=== PATIENT | male | born 1940 | race Caucasian/White ===

== ENCOUNTER 2019-08-09 13:52 | Outpatient (CLI) | payer MEDICARE, OTHER, SELFPAY ==
[2019-08-09 14:46] LABS: Basophils % 0.3 %; Eosinophils # 0.3 10^3/uL (0.0-0.8); Eosinophils % 5.2 %; Hematocrit 41.6 % (42.0-52.0); Hemoglobin 13.5 g/dL (11.7-16.6); Lymphocytes # 2.1 10^3/uL (0.8-4.8); Lymphocytes % 31.5 %; Mean Corpuscular HGB Conc 32.5 g/dL (30.0-36.0); Mean Corpuscular Hemoglobin 32.6 pg (28.0-34.0); Mean Corpuscular Volume 100.5 fL (80-94); Mean Platelet Volume 12.3 fL (7.4-10.4); Monocytes # 0.8 10^3/uL (0.2-0.9); Monocytes % 12.2 %; Neutrophils # 3.3 10^3/uL (1.8-7.7); Neutrophils % 50.6 %; Nucleated Red Blood Cells % 0 %; Platelet Count 186 10^3/cmm (130-400); Red Blood Count 4.14 10^6/uL (4.1-5.3); Red Cell Distribution Width 13.2 % (12.1-15.1); White Blood Count 6.6 10^3/uL (4.0-10.0)
[2019-08-09 15:06] LABS: Alanine Aminotransferase 13 U/L (0-41); Albumin Level 3.7 g/dL (3.5-5.2); Alkaline Phosphatase 59 IU/L (40-130); Anion Gap 16.6 (5-19); Aspartate Amino Transferase 18 U/L (0-40); Blood Urea Nitrogen 22 mg/dL (8-23); Calcium 9.6 mg/dL (8.5-10.5); Carbon Dioxide 26 mmol/L (22-29); Chloride 99 mmol/L (98-107); Globulin 3.5 g/dL (1.3-4.6); Potassium 4.6 mmol/L (3.5-5.1); Sodium 137 mmol/L (136-145); Total Bilirubin 0.4 mg/dL (0.15-1.2); Total Protein 7.2 g/dL (6.6-8.7)
[2019-08-10 08:55] LABS: Glucose 86 mg/dL (65-115)
[2019-08-10 10:57] LABS: Amylase 56 U/L (28-100); Lipase 21 U/L (13-60)
== END 2019-08-09 13:53 | disposition home or self-care (01) ==
LOC: ONCMED 13:58
PROVIDERS: Family Provider Family Medicine; Visit Provider Nurse Practitioner
DX: R53.83 Other fatigue (principal); C61 Malignant neoplasm of prostate; C79.51 Secondary malignant neoplasm of bone
CPT/HCPCS: 80053; 82150; 83690; 85025

== ENCOUNTER 2019-08-24 13:19 | Outpatient (CLI) | payer MEDICARE, OTHER, SELFPAY | END 2019-08-24 13:20 | disposition home or self-care (01) | PROVIDERS: Family Provider Family Medicine; PCP Family Medicine; Visit Provider Family Medicine | DX: R19.7 Diarrhea, unspecified (principal) | CPT/HCPCS: 87493; 87505 ==

== ENCOUNTER 2019-08-25 10:25 | Outpatient (CLI) | payer MEDICARE, OTHER, SELFPAY ==
--- NOTE | 2019-08-25 | US_ITS ---
WS: [id number] RENAL ULTRASOUND HISTORY: LEFT FLANK PAIN COMPARISON: 01/03/2019 CT. TECHNIQUE: 2-D and color Doppler imaging of the kidney submitted. Right kidney: 11.9 cm x 5.2 cm x 5.1 cm. Normal echogenicity with no hydronephrosis or mass. Normal size kidney. Shadowing from the mid kidney probably representing a stone measuring 5 mm. No obstruction. Left kidney: 10.4 cm x 5.1 cm x 5.5 cm. Normal echogenicity with no hydronephrosis or mass. Simple cyst associated with the LEFT kidney measu res 3.9 x 3.4 cm. The exact location cannot be determined on the images as labeled. As per history robyn sanchez has a LEFT ureteral stent. Previously described hydronephrosis on 01/03/2019 is no longer present . Aorta: Normal. Urinary Bladder: Minimally distended. US/US renal BI* [id number] IMPRESSION: 1. Resolved LEFT hydronephrosis. 2. No RIGHT renal mass or obstruction.
== END 2019-08-25 10:26 | disposition home or self-care (01) ==
LOC: RADOUTREAD 14:38
PROVIDERS: Family Provider Family Medicine; PCP Family Medicine; Visit Provider Family Medicine
DX: Z01.89 Encounter for other specified special examinations (principal)

== ENCOUNTER 2019-09-05 14:15 | Outpatient (CLI) | payer MEDICARE, OTHER, SELFPAY ==
--- NOTE | 2019-09-05 14:30 | CT_ITS ---
WS: [id number] CT LUMBAR SPINE, noncontrast. HISTORY: Low back pain, history of prostate cancer. TECHNIQUE: Contiguous 2.5 mm axial imaging are performed. Sagittal and coronal reformats are submitte d and reviewed. All CT scans at [facility] use at least one of these dose optimization te chniques: automated exposure control; mA and/or kV adjustment per patient size (includes targeted exa ms where dose is matched to clinical indication); or iterative reconstruction. IV contrast: None DLP: 1954.01 mGycm COMPARISON: 02/04/2019 Severe multilevel degenerative disc disease with vacuum disc phenomenon in the lumbar spine. Most sig nificant from L2-3 through L5-S1. Severe disc space narrowing L2-3. L4 compression fracture by 30%. N o acute fracture or bone destruction. Bilateral pars defects at L5. L1-2: Asymmetric disc bulging without stenosis. L2-3: Diffuse disc bulging with mild LEFT foraminal narrowing. L3-4: Diffuse annular disc bulging with ligamentum flavum hypertrophy and facet arthropathy. Facet os teophytes encroach upon the posterior lateral thecal sac. Mild central and subarticular recess stenos is. Severe LEFT and moderate RIGHT foraminal stenosis. L4-5: Diffuse annular disc bulging with facet and ligamentum flavum arthropathy. Moderate to severe b ilateral foraminal stenosis. L5-S1: Diffuse annular disc bulging with a focal RIGHT foraminal disc protrusion. Complete effacement of fat in the RIGHT foramen and mild effacement of fat on the LEFT. Heavy calcification within the abdominal aorta. No osteoblastic or osteolytic bone changes. CT/CT lumbar spine wo con* [id number] IMPRESSION: 1. Remote L4 compression fracture by 30% with no change. 2. Multilevel advanced degenerative disc disease and vacuum disc phenomenon th roughout the lumbar spine. 3. Severe RIGHT foraminal stenosis due to combination of factors including a d isc protrusion at L5-S1. 4. Moderate to severe bilateral foraminal stenosis at L3-4 and L4-5. 5. L5 pars defects without anterolisthesis. 6. No significant progression of disease since 02/04/2019.
== END 2019-09-05 14:16 | disposition home or self-care (01) ==
LOC: RADWPI 14:21
PROVIDERS: Family Provider Family Medicine; PCP Family Medicine; Visit Provider Licensed Practical Nurse
DX: M48.56XA Collapsed vertebra, not elsewhere classified, lumbar region, initial encounter for fracture (principal); M47.896 Other spondylosis, lumbar region; M48.07 Spinal stenosis, lumbosacral region; M51.26 Other intervertebral disc displacement, lumbar region; M48.061 Spinal stenosis, lumbar region without neurogenic claudication; R22.2 Localized swelling, mass and lump, trunk; M54.5 Low back pain
CPT/HCPCS: 72131

== ENCOUNTER 2019-09-13 08:29 | Outpatient (CLI) | payer MEDICARE, OTHER, SELFPAY ==
--- NOTE | 2019-09-13 08:30 | XR_ITS ---
WS: [id number] KUB, 09/13/2019 Clinical Data: Prostate cancer Comparison: C-arm fluoroscopy of the abdomen, 01/20/2019. Findings: No abnormal intraabdominal masses or calcifications are seen. There is no dilatated small bowel or ev idence of obstruction. A left ureteral stent is in position. There are bilateral surgical clips and central surgical clips i n the true pelvis from prostate surgery. Degenerative arthritic change of the lower lumbar vertebral bodies is severe. There is a large amount of fecal material throughout the colon. XR/XR KUB [id number] Impression: 1. Left ureteral stent in good position. 2. Surgical clips in the true pelvis.
== END 2019-09-13 08:30 | disposition home or self-care (01) ==
LOC: RAD 08:31
PROVIDERS: Family Provider Family Medicine; PCP Family Medicine; Visit Provider Urology
DX: N13.30 Unspecified hydronephrosis (principal); C61 Malignant neoplasm of prostate
CPT/HCPCS: 74018

== ENCOUNTER 2019-09-30 07:35 | Outpatient (CLI) | payer MEDICARE, OTHER, SELFPAY ==
[2019-09-30 13:01] LABS: Basophils % 0.1 %; Eosinophils # 0.2 10^3/uL (0.0-0.8); Eosinophils % 2.4 %; Hematocrit 41.7 % (42.0-52.0); Hemoglobin 13.3 g/dL (11.7-16.6); Lymphocytes # 1.8 10^3/uL (0.8-4.8); Lymphocytes % 25.8 %; Mean Corpuscular HGB Conc 31.9 g/dL (30.0-36.0); Mean Corpuscular Hemoglobin 33.7 pg (28.0-34.0); Mean Corpuscular Volume 105.6 fL (80-94); Mean Platelet Volume 12.3 fL (7.4-10.4); Monocytes # 0.4 10^3/uL (0.2-0.9); Neutrophils # 4.4 10^3/uL (1.8-7.7); Neutrophils % 65.3 %; Nucleated Red Blood Cells % 0 %; Platelet Count 239 10^3/cmm (130-400); Red Blood Count 3.95 10^6/uL (4.1-5.3); Red Cell Distribution Width 13.5 % (12.1-15.1); White Blood Count 6.8 10^3/uL (4.0-10.0)
[2019-09-30 13:18] LABS: Testosterone Total 4.8 ng/dL (193-740)
[2019-09-30 13:24] LABS: Prostate Specific Antigen 0.17 ng/mL (0-4)
[2019-09-30 13:36] LABS: Alanine Aminotransferase 12 U/L (0-41); Albumin Level 4.3 g/dL (3.5-5.2); Alkaline Phosphatase 55 IU/L (40-130); Anion Gap 20.6 (5-19); Aspartate Amino Transferase 19 U/L (0-40); Blood Urea Nitrogen 22 mg/dL (8-23); Calcium 9.7 mg/dL (8.5-10.5); Carbon Dioxide 23 mmol/L (22-29); Chloride 97 mmol/L (98-107); Globulin 2.9 g/dL (1.3-4.6); Glucose 129 mg/dL (65-115); Osmolality Calculated 280 mOsm/kg (285-295); Potassium 4.6 mmol/L (3.5-5.1); Sodium 136 mmol/L (136-145); Total Bilirubin 0.5 mg/dL (0.15-1.2); Total Protein 7.2 g/dL (6.6-8.7)
== END 2019-09-30 07:36 | disposition home or self-care (01) ==
LOC: ONCMED 10-03 06:56
PROVIDERS: Family Provider Family Medicine; PCP Family Medicine; Visit Provider Internal Medicine Medical Oncology
DX: C61 Malignant neoplasm of prostate (principal)
CPT/HCPCS: 80053; 84153; 84403; 85025

== ENCOUNTER 2019-10-03 08:25 | Outpatient (CLI) | payer MEDICARE, OTHER, SELFPAY ==
[2019-10-03] MEDS: lidocaine 1% INJ 20 mL INJECTION (08:58)
[2019-10-03] MEDS: goserelin acetate 10.8 mg Implant IM (09:12)
--- NOTE | 2019-10-06 19:00 | ONC FU_ITS ---
Dr. Francisco Patient Follow-Up Note Patient: Mack Nash Unit #: [id number]: [id number] Dicatated By: Paul Francisco M.D.Date of Visit:Oct 03, 2019 Onc Med Follow-up/Prog Note Chief Complaint: Prostate cancer. History of Present Illness: This is 78 year-old man with the stage IV prostatic adenocarcinoma, metastatic to bone. He has a history of coronary artery disease, smoking and alcohol consumption. He was diagnosed with an early stage intermediate risk prostatic adenocarcinoma in 1999, Constantino score 5, PSA 20.6. He underwent a primary treatment with radical retropubic prostatectomy. Reportedly, the patient had recurrent detectable PSA within one year. In October of 2012 PSA measured 10.7, with further increase to 37.7 in October 2013 and further increase to 81.2 in May 2014. The bone scan on 05/08/2014 showed increased activity in the right superior ramus, right acetabulum as well as right femoral neck. The patient began treatment with Zoladex and 2 weeks therapy with Casodex on 05/08/2014. The patient was first seen by Dr. Shah on 07/03/2014. He had no pain associated with the right leg, hip, or pelvis. CT of the chest/ abdomen/pelvis on 07/04/2014 showed no evidence of distal metastatic disease. His DEXA scan on 07/10/2014 was normal. An MRI on 08/29/2014 showed a right hip lesion extending to the cortex. He completed right hip radiation treatment on 10/13/2014. He established care with orthopedic surgeon at [facility]. His PSA reached a walter of 0.25 ng/mL on 08/27/2015. A repeat PSA in November was up just slightly, to 0.32 ng/mL. By 05/28/2016 his PSA had increased to 0.81 ng/mL. Restaging CT scans of the chest, abdomen, and pelvis on 06/17/2016 showed stable right lower lobe subpleural nodules since 07/04/2014 and unlikely to represent metastatic lesions. There were no acute findings of the chest and no significant change from 07/04/2014. There were stable nonenlarged retroperitoneal para-adrenal lymph nodes noted. There was essentially near complete resolution of prior blastic metastatic disease involving right proximal femur, acetabulum, and superior pubic ramus. Bone scan performed 06/17/2016 showed stable findings. There were no new areas of increased uptake to suggest progression of metastatic disease. He continued androgen deprivation. During subsequent follow-up his PSA level continued to increase gradually. As of 03/27/2017 it was up to 4.62 ng/mL. Restaging CT scans of the chest, abdomen, and pelvis on 06/23/2017 showed no evidence of neoplastic process within the chest and no evidence of metastatic disease in the abdomen/pelvis or bony structures. There were extensive degenerative changes in the spine, and there was evidence of L4 anterior superior compression fracture compared to the study from 06/24/2016. Bone scan showed eccentric increased activity in lumbar spine felt to be most likely degenerative. The L4 vertebral body compression fracture was again noted. There was no evidence of osseous metastatic disease. A subsequent DEXA scan on 07/10/2017 showed a decrease in the bone mineral density in both hips compared to the prior study from July 2014. On his follow-up visit in July 2017 there was just a slight further increase in the PSA level, to 5.93 ng/mL, and as of 09/23/2017 it was up to 8.62 ng/mL. He had no evidence of symptomatic metastatic disease, and he just continued androgen deprivation with Zoladex. As of his follow-up visit on 12/16/2017 there was further increase in the PSA level to 12.90 ng/mL. He was reporting increased back pain with radiation to the left leg. He continued androgen deprivation therapy with Zoladex, but he also had further evaluation with bone scan and subsequently with CT of the lumbar spine. There was no evidence of metastatic disease on the bone scan. He lumbar spine CT did show an L4 compression fracture estimated at 30% without retropulsion. There were significant degenerative changes with moderate central canal stenosis at L2-3 and at L3-4 and there was moderate to severe foraminal stenosis at multiple sites. As of 03/18/2018 the PSA had further increased to 13.90 ng/mL. In the absence of symptomatic disease progression, he continued androgen deprivation with Zoladex. His other medical illnesses include hypertension, dyslipidemia, and coronary artery disease. He does have history of smoking, but has cut down to less than 1 pack of cigarettes daily. INTERIM HISTORY: By December 2018 the PSA had further increased to 20.93 ng/mL, and at that point he was having increasing pain in the left lower back and left leg. MRI of the lumbar spine on 12/23/2018 showed significant degenerative changes which included moderate central canal stenosis and foraminal narrowing at multiple levels. Also noted was moderate left hydronephrosis with ureterectasis extending into the pelvis.further evaluation with CT abdomen/pelvis on 01/03/2019 showed evidence of left ureteropelvic junction mass causing left ureterectasis and hydronephrosis. A left side presacral elongated soft tissue mass was noted, possibly of sacral nerve root origin, with the reported differential including schwannoma, neurofibroma, or perineural spread of neoplasm. He was referred to Dr. Puckett, and on 01/20/2019 he underwent cystoscopy and left ureteroscopy with biopsy of ureteral mass and with placement of left ureteral stent. Pathology showed fibrous tissue with chronic inflammation. There was no malignancy identified. As he appeared to be showing significant disease progression, he then began treatment with enzalutamide 160 mg daily in February 2019. He did show significant biochemical response with repeat PSA on 03/21/2019 decreasing to 3.95 ng/mL. He continued androgen deprivation with Zoladex together with enzalutamide 160 mg daily, which he appeared to be tolerating well. On 06/13/2019 he underwent cystoscopy with replacement of his left ureteral stent. The distal ureter was noted to have significant inflammatory changes, but no distinct papillary tumors were noted. As of his follow-up visit on 06/20/2019 there was further decrease in the PSA level to 0.36 ng/mL. He is seen for a scheduled visit. He has been feeling pretty good generally, though he says he does not have a lot of energy. Still has limited mobility due to the pain in his back and legs. He is doing some exercising. His ECOG score is 2. His appetite has been okay. He has not had fever. He does have hot flashes, but they have been tolerable with gabapentin. He has some sinus drainage, which occasionally has been bloody. He has a smoker's cough. He does not complain of shortness of breath or chest pain. He has no GI/ complaints other than he occasionally has bladder leakage. He does not complain of headache. He has no focal neurologic symptoms. Medications: AmLODIPine Besylate 1 (5 mg) Tablet Oral daily, Aspirin 1 (81 mg) Tablet Oral daily, Atorvastatin Calcium (10 mg) Tablet Oral daily, Carvedilol 1 Tablet (of 6.25 mg) Oral b.i.d., Enzalutamide 4 Capsule (of 40 mg) Oral daily, gabapentin 1 Capsule (of 300 mg) Tablet t.i.d., Garlic 2 Capsule Oral daily, Hydrocodone-Acetaminophen 1 Tablet (of 5-325 mg) Oral q 8 hours PRN, Lisinopril 1 (10 mg) Tablet Oral daily, Plavix 1 (75 mg) Tablet Oral daily, Stool Softener 1 Tablet (of 100 mg) Oral daily, Triamterene-HCTZ 0.5 (37.5-25 mg) Tablet Oral daily, Venlafaxine HCl ER 1 Capsule (of 75 mg) Capsule SR 24 HR Oral daily Allergies: No Known Allergies. Review of Systems: Constitutional - His energy level is low. He has been doing some light exercising, but he has limited activity due to mobility. His appetite is good and weight is up about 5 pounds. No fever or chills. He continues to have hot flashes mostly at night. ECOG score is 2, ENMT - No sinus congestion/drainage. No mouth sores. No sore throat or difficulty swallowing, Hematologic/Lymphatic - He bruises easily, Respiratory - No shortness of breath. He has a chronic smokers cough. No pleuritic pain or hemoptysis, Cardiovascular - No angina pain. No palpitations, Gastrointestinal - No nausea or vomiting. No heartburn or acid reflux. No diarrhea or constipation. No blood in the stool or black stools, Genitourinary (M) - No dysuria or hematuria. No urinary frequency. No urgency. He has occasional incontinence, Musculoskeletal - He has pain in his back and legs that is adequately managed with hydrocodone/APAP, Integumentary - No skin complications, Neurologic - No headache. He has some occasional dizziness with positional changes. No numbness/paresthesias or other focal neurologic symptoms, Psychiatric - No anxiety or depression. He is having difficulty sleeping. Vital Signs: Performed on Oct 03, 2019 08:38 Height - 72.00 in Weight - 235.0 lbs (HIGH) BSA - 2.28 sq.m BMI - 31.87 (HIGH) Temperature - 97.5 F (LOW) Pulse - 61 /min Respiration - 24 /min BP - 131/73 mm(hg) O2 Sat - 100 % Pain - 0 Physical Examination: Constitutional - He looks pretty good generally, Eyes - Sclerae nonicteric. Conjunctivae clear, ENMT - No lesions noted in the oral cavity, Hematologic/Lymphatic - No cervical, clavicular, or axillary adenopathy, Respiratory - Lungs are clear with diminished air movement bilaterally, Cardiovascular - Heart rhythm is regular. There is no murmur, gallop, or rub noted, Abdomen - Mildly distended. Liver and spleen are not enlarged. There is no abdominal mass or ascites noted and there is no inguinal adenopathy, Extremities - There is mild swelling of the left leg. He has localized swelling at the left elbow consistent with bursitis, Neurologic - No focal neurologic deficits noted. Lab/Imaging: CBC shows hemoglobin 13.3 g, white blood cell count 6800, and platelet count 239,000. Comprehensive metabolic profile is unremarkable. The PSA is down to 0.17 ng/mL. Testosterone level is in castrate range at 4.8 ng/dL. Impression: 1. Patient with stage [place] 5 prostate cancer, early stage at initial diagnosis in 1999 and treated with radical prostatectomy. 2. He presented with castration sensitive stage IV, metastatic disease in the bone in May of 2014 with PSA 81.2. Androgen deprivation therapy was initiated on 05/08/14 with Zoladex and 2 weeks of bicalutamide. He has had a good clinical response with PSA walter of 0.25 ng/mL on 08/27/2015. His other medical illnesses include: 3. Hypertension. 4. Dyslipidemia. 5. Coronary artery disease. During the past year there has been a gradual rise in his PSA level. There were no obvious sites of metastatic involvement noted on his restaging CT scans or bone scan in June 2017. There was evidence of a new vertebral compression fracture at L4, but that did not appear to be overtly symptomatic. A subsequent DEXA scan on 07/10/2017 showed a decrease in the bone mineral density in both hips compared to the prior study from July 2014. As of his follow-up visit in July 2017, his PSA level had increased just slightly, to 5.93 ng/mL. It then continued to increase gradually, to 8.62 ng/mL in September and to 12.90 ng/mL in December. At that point he had developed significant back pain. He continued androgen deprivation therapy with Zoladex, but he did have further evaluation with bone scan and subsequently with CT of the lumbar spine. Based on those results, it appeared that his pain was due to underlying degenerative disease, as there was no obvious metastatic involvement noted. He initially did show some improvement in his lower back/hip pain with physical therapy. However, it had subsequently worsened, and as of his follow-up visit in December 2018 was further increase in the PSA level to 20.93 ng/mL. MRI of the lumbar spine did show significant degenerative changes, but that study also showed evidence of left hydronephrosis. Further evaluation with CT abdomen/pelvison 01/03/2019 showed evidence of left ureteropelvic junction mass with associated left ureterectasis and hydronephrosis. Also noted was a left side presacral elongated soft tissue mass felt to be possibly of sacral nerve root origin. On 01/20/2019 he underwent cystoscopy and left ureteroscopy with biopsy of left ureteral mass and with placement of left ureteral stent. The biopsy showed no evidence of malignancy. As of February 2019 there was further increase in the PSA level to 24.56 ng/mL. As he did appeared to be showing symptomatic disease progression, he then started treatment with enzalutamide 160 mg daily. He reported significant improvement in his left lower back pain following placement of the ureteral stent. He did show a significant biochemical response to the enzalutamide with repeat PSA on 03/21/2019 decreasing to 3.95 ng/mL. At that point he appeared to be tolerating it well, and he continued the enzalutamide together with Zoladex. On 06/13/2019 he underwent repeat cystoscopy and replacement of a left ureteral stent. He again noted improvement in lower back pain following the procedure. During subsequent follow-up his clinical status has been stable, though he continues to have limited activity due to pain in his back and legs. However, that does appear to be associated with underlying degenerative disease and not to his prostate cancer. He has continued to show gradual decline in his PSA level, now to 0.17 ng/mL. Plan: He will be given Zoladex 10.8 mg by subcutaneous injection. He continues enzalutamide 160 mg daily. He will continue gabapentin 300 mg in the morning and 600 mg at bedtime. I will see him again in 3 months. Signed By: Paul Francisco M.D. <<Signature on File>>
== END 2019-10-03 08:26 | disposition home or self-care (01) ==
LOC: ONCMED 08:25
PROVIDERS: Family Provider Family Medicine; PCP Family Medicine; Visit Provider Internal Medicine Medical Oncology
DX: C61 Malignant neoplasm of prostate (principal); C79.51 Secondary malignant neoplasm of bone; M79.605 Pain in left leg; M79.604 Pain in right leg; M54.9 Dorsalgia, unspecified; I10 Essential (primary) hypertension; E78.5 Hyperlipidemia, unspecified; I25.10 Atherosclerotic heart disease of native coronary artery without angina pectoris; F17.210 Nicotine dependence, cigarettes, uncomplicated; Z90.79 Acquired absence of other genital organ(s); Z79.818 Long term (current) use of other agents affecting estrogen receptors and estrogen levels; Z79.899 Other long term (current) drug therapy
CPT/HCPCS: 96372; 96402; 99214; J2001; J9202

== ENCOUNTER 2019-12-06 08:43 | Outpatient (CLI) | payer MEDICARE, OTHER, SELFPAY ==
--- NOTE | 2019-12-06 09:00 | XR_ITS ---
WS: [id number] XR KUB [id number] REASON FOR EXAM: URETERAL STENT FINDINGS: A stent is seen in the left ureter extends to the kidney. The positioning appears to be sat isfactory. Along the bladder aspects of the ureter stent there is disruption of the stent suggesting laceration of the splenic. There is postop multiple sutures seen throughout the pelvis. There is degenerative arthritis of the thoracic spine. XR/XR KUB [id number] IMPRESSION: A stent is seen extends to the left kidney down to the bladder Questionable laceration of these stent at the bladder region. This may be quest ionable defect from the positioning of the catheter.
== END 2019-12-06 08:44 | disposition home or self-care (01) ==
LOC: RAD 08:48
PROVIDERS: Family Provider Family Medicine; PCP Family Medicine; Visit Provider Urology
DX: Z96.0 Presence of urogenital implants (principal)
CPT/HCPCS: 74018; 81001

== ENCOUNTER 2019-12-09 10:27 | Day surgery (SDC) | payer MEDICARE, OTHER, SELFPAY ==
[2019-12-08 11:44] VITALS: BMI 33.7
--- NOTE | 2019-12-08 12:05 | ECG_ITS ---
Measurements Intervals [place] Rate: 56 P: 49 WA: 155 QRS: -6 QRSD: 102 T: 21 QT: 462 QTc: 449 SINUS BRADYCARDIA WITH OCCASIONAL SUPRAVENTRICULAR PREMATURE COMPLEXES NONSPECIFIC T-WAVE ABNORMALITY Compared to ECG 01/18/2019 11:08:54 T-wave abnormality now present Myocardial infarct finding no longer present Electronically Signed On 12-08-2019 16:37:03 CDT by Alo Skaggs M.D. [id number]
--- NOTE | 2019-12-08 12:29 | ANES.PREANE2 ---
Pre-Anesthetic Assessment Pre-Anesthetic Assessment: Height/Weight: Height 1.78 m Weight 106.594 kg Preop Diagnosis: Chronic left ureteral obstruction Proposed Procedure: Operation Date: 12/09/19 12:20 Proposed Procedures p Cystoscopy 28656 N13.5(Left) - Bill Puckett MD s Ureteral Stent Exchange(Left) - Bill Puckett MD Social: Social History: Alcohol (occ) and Tobacco Exam: Pre-Anes Outpt Exam: alert, oriented x 3, clear to auscultation bilaterally and regular rate & rhythm Airway: Submandibular: WNL Cervical ROM: WNL MP: 2 Dentition: Other (poor dentation) History/ROS: No significant history except as noted Pulmonary: Pulmonary: COPD and Sleep apnea CV/HEM: CV/HEM: CAD (2005 stent), HTN and WI : Comments: prostrate ca Hepatic: Hepatic: None reported GI: GI: GERD (occ) Metabolic: Metabolic: Hyperlipidemia Musc/skel: Musc/skel: Lower Back Pain, OA/DJD and Weakness (legs) Neuropsych: Neuropsych: None reported Anesthetic Plan: ASA status: 3 Anesthesia: Anesthesia Evaluation and General Risk of > 500 ml blood loss (7ml/kg in children): No PFSH Anesthesia PFSH: Medical History Acquired spondylolisthesis Extrinsic ureteral obstruction Intervertebral disc disorders with radiculopathy, 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 Prostate cancer metastatic to bone Retained ureteral stent Sacral mass Surgical History History of radical prostatectomy History of ureter stent left, 01/20/2019 Hx of heart artery stent Family History Mother Cancer Father Stroke Other Hypertension Social History Smoking and tobacco status: current every day smoker Alcohol intake: current Alcohol intake frequency: holidays/special occasions only Adopted: No Caregiver/support person: No Lives independently: No Household members: spouse Marital status: service: No Current occupational status: retired History of recent travel: No Current gender identity: Male Data Anesthesia Cardiac Studies: No Data to Display
[2019-12-09] VITALS (7 sets, daily range): BP systolic 94–139; BP diastolic 65–80; PULSE 46–52; RESP 10–18; TEMP 36.1–36.4; O2SAT 96–100
--- NOTE | 2019-12-09 10:14 | SC_ITS ---
WS: [id number] C-arm FL for Urology REASON FOR EXAM: Change left ureteral stent FINDINGS: Fluoroscopic guidance was utilized for changing of the left ureter ureteral stent and. The stent is seen in good position. SC/C-arm FL for Urology IMPRESSION: Stent change satisfactory.
[2019-12-09] MEDS: sodium chloride 0.9% 1,000 ML 30 ML IV (11:12)
--- NOTE | 2019-12-09 12:24 | W.PM.OPSUD ---
Surgery/Procedure H&P Update DATE OF PROCEDURE: December 09, 2019 DATE H&P PERFORMED: 12/06/19 H&P UPDATE INFORMATION: I have reviewed H&P completed within last 30 days, I have examined patient prior to procedure, No changes to prior documentation and H&P is in [facility] EMR on date indicated PREOP DIAGNOSIS: Chronic left ureteral obstruction PLANNED PROCEDURE: Operation Date: 12/09/19 12:00 Proposed Procedures p Cystoscopy 58964 N13.5(Left) - Bill Puckett MD s Ureteral Stent Exchange(Left) - Bill Puckett MD
--- NOTE | 2019-12-09 13:32 | P.OP_ITS ---
Operative Report Date of procedure: December 09, 2019 Pre-op Diagnosis: Chronic left ureteral obstruction Post-op diagnosis: same Procedure Done: Cystoscopy exchange left ureteral stent Pathology: none sent Surgeon: Italo Anesthesia: General Estimated blood loss: None Urine output: Not measured Complications: None Findings: Stent in good position and shape. Removed without difficulty. Replaced with 7 x 26 Yemeni without string Condition: stable Disposition: PACU Brief History: Mr. Nash is a very pleasant 78-year-old white male with a chronic left ureteral obstruction of unclear etiology managed with chronic indwelling stent. He is on treatment for metastatic prostate cancer. Procedure: After routine preoperative evaluation examination and obtaining of informed consent he was taken to the operating suite on 12/09/2019 where general anesthesia was administered without difficulty after appropriate timeout was performed, SCDs confirmed to be functioning, preoperative antibiotics administered, beta-laura protocol confirmed. Prepped and draped in usual sterile fashion in dorsolithotomy position pain careful attention to avoiding pressure points. 21 Yemeni cystoscope with 30 degree lens was introduced into urethral meatus and advanced into the bladder under videoscopy. Bladder was systematically examined. Stent was in good position with minimal encrustation. Guidewire was placed next to the stent and passed up into the kidney and the stent was then removed with grasping forceps. Cystoscope then backloaded over the guidewire and a 7 Yemeni by 26 cm double- pigtail stent was advanced over the guidewire through the cystoscope into appropriate position as confirmed via fluoroscopy and cystoscopy. Confirmed to be draining. Bladder drained procedure completed. Tolerated the procedure well without complications and was awakened in the operating room and returned to the cover him in stable condition. PLANS: 1. Follow-up in 3 to 4 months with a KUB. Schedule next stent change in approximately 4 months.
== END 2019-12-09 14:16 | disposition home or self-care (01) ==
PROVIDERS: PCP Family Medicine; Visit Provider Urology
PROC: 0TJB8ZZ Inspection of Bladder, Via Natural or Artificial Opening Endoscopic (ICD-10-PCS; CPT 52000; principal; 2019-12-09 12:00)
PROC: (CPT 52332; 2019-12-09 12:00)
DX: N20.1 Calculus of ureter (principal); Z79.82 Long term (current) use of aspirin; J44.9 Chronic obstructive pulmonary disease, unspecified; G47.30 Sleep apnea, unspecified; I25.10 Atherosclerotic heart disease of native coronary artery without angina pectoris; I10 Essential (primary) hypertension; I25.2 Old myocardial infarction; E78.5 Hyperlipidemia, unspecified; F17.210 Nicotine dependence, cigarettes, uncomplicated
CPT/HCPCS: 52332; 12345; 76000; 93005; C2625; J2001; J2405; J2704; J3010; J7030

== ENCOUNTER 2019-12-30 08:15 | Outpatient (CLI) | payer MEDICARE, OTHER, SELFPAY ==
[2019-12-30 09:17] LABS: Basophils % 0.3 %; Eosinophils # 0.2 10^3/uL (0.0-0.8); Eosinophils % 3.2 %; Hematocrit 44.2 % (42.0-52.0); Hemoglobin 14.5 g/dL (11.7-16.6); Lymphocytes # 1.7 10^3/uL (0.8-4.8); Lymphocytes % 26.2 %; Mean Corpuscular HGB Conc 32.8 g/dL (30.0-36.0); Mean Corpuscular Hemoglobin 34.7 pg (28.0-34.0); Mean Corpuscular Volume 105.7 fL (80-94); Mean Platelet Volume 12.2 fL (7.4-10.4); Monocytes # 0.7 10^3/uL (0.2-0.9); Monocytes % 10.1 %; Neutrophils # 3.9 10^3/uL (1.8-7.7); Neutrophils % 59.9 %; Nucleated Red Blood Cells % 0 %; Platelet Count 214 10^3/cmm (130-400); Red Blood Count 4.18 10^6/uL (4.1-5.3); Red Cell Distribution Width 13.2 % (12.1-15.1); White Blood Count 6.5 10^3/uL (4.0-10.0)
[2019-12-30 09:45] LABS: Testosterone Total 8.6 ng/dL (193-740)
[2019-12-30 09:46] LABS: Prostate Specific Antigen 0.095 ng/mL (0-4)
[2019-12-30 09:57] LABS: Alanine Aminotransferase 11 U/L (0-41); Albumin Level 4.1 g/dL (3.5-5.2); Alkaline Phosphatase 73 IU/L (40-130); Anion Gap 17.3 (5-19); Aspartate Amino Transferase 15 U/L (0-40); Blood Urea Nitrogen 22 mg/dL (8-23); Calcium 9.5 mg/dL (8.5-10.5); Carbon Dioxide 24 mmol/L (22-29); Chloride 100 mmol/L (98-107); Globulin 2.8 g/dL (1.3-4.6); Glucose 106 mg/dL (65-115); Osmolality Calculated 281 mOsm/kg (285-295); Potassium 4.3 mmol/L (3.5-5.1); Sodium 137 mmol/L (136-145); Total Bilirubin 0.5 mg/dL (0.15-1.2); Total Protein 6.9 g/dL (6.6-8.7)
== END 2019-12-30 08:16 | disposition home or self-care (01) ==
LOC: ONCMED 09:12
PROVIDERS: PCP Family Medicine; Visit Provider Internal Medicine Medical Oncology
DX: C61 Malignant neoplasm of prostate (principal)
CPT/HCPCS: 36415; 80053; 84153; 84403; 85025

== ENCOUNTER 2020-01-03 14:41 | Outpatient (CLI) | payer MEDICARE, OTHER, SELFPAY ==
[2020-01-03] MEDS: goserelin acetate 10.8 mg Implant SUBCUT (15:48)
[2020-01-03] MEDS: denosumab 60 mg SDV SUBCUT (15:50)
--- NOTE | 2020-01-06 07:50 | ONC FU_ITS ---
Dr. Francisco Patient Follow-Up Note Patient: Mack Nash Unit #: [id number]: 1940 Dicatated By: Paul Francisco M.D.Date of Visit:Jan 03, 2020 Onc Med Follow-up/Prog Note Chief Complaint: Prostate cancer. History of Present Illness: This is 79 year-old man with the stage IV prostatic adenocarcinoma, metastatic to bone. He has a history of coronary artery disease, smoking and alcohol consumption. He was diagnosed with an early stage intermediate risk prostatic adenocarcinoma in 1999, [place]ino score 5, PSA 20.6. He underwent a primary treatment with radical retropubic prostatectomy. Reportedly, the patient had recurrent detectable PSA within one year. In October of 2012 PSA measured 10.7, with further increase to 37.7 in October 2013 and further increase to 81.2 in May 2014. The bone scan on 05/08/2014 showed increased activity in the right superior ramus, right acetabulum as well as right femoral neck. The patient began treatment with Zoladex and 2 weeks therapy with Casodex on 05/08/2014. The patient was first seen by Dr. Shah on 07/03/2014. He had no pain associated with the right leg, hip, or pelvis. CT of the chest/ abdomen/pelvis on 07/04/2014 showed no evidence of distal metastatic disease. His DEXA scan on 07/10/2014 was normal. An MRI on 08/29/2014 showed a right hip lesion extending to the cortex. He completed right hip radiation treatment on 10/13/2014. He established care with orthopedic surgeon at [facility]. His PSA reached a walter of 0.25 ng/mL on 08/27/2015. A repeat PSA in November was up just slightly, to 0.32 ng/mL. By 05/28/2016 his PSA had increased to 0.81 ng/mL. Restaging CT scans of the chest, abdomen, and pelvis on 06/17/2016 showed stable right lower lobe subpleural nodules since 07/04/2014 and unlikely to represent metastatic lesions. There were no acute findings of the chest and no significant change from 07/04/2014. There were stable nonenlarged retroperitoneal para-adrenal lymph nodes noted. There was essentially near complete resolution of prior blastic metastatic disease involving right proximal femur, acetabulum, and superior pubic ramus. Bone scan performed 06/17/2016 showed stable findings. There were no new areas of increased uptake to suggest progression of metastatic disease. He continued androgen deprivation. During subsequent follow-up his PSA level continued to increase gradually. As of 03/27/2017 it was up to 4.62 ng/mL. Restaging CT scans of the chest, abdomen, and pelvis on 06/23/2017 showed no evidence of neoplastic process within the chest and no evidence of metastatic disease in the abdomen/pelvis or bony structures. There were extensive degenerative changes in the spine, and there was evidence of L4 anterior superior compression fracture compared to the study from 06/24/2016. Bone scan showed eccentric increased activity in lumbar spine felt to be most likely degenerative. The L4 vertebral body compression fracture was again noted. There was no evidence of osseous metastatic disease. A subsequent DEXA scan on 07/10/2017 showed a decrease in the bone mineral density in both hips compared to the prior study from July 2014. On his follow-up visit in July 2017 there was just a slight further increase in the PSA level, to 5.93 ng/mL, and as of 09/23/2017 it was up to 8.62 ng/mL. He had no evidence of symptomatic metastatic disease, and he just continued androgen deprivation with Zoladex. As of his follow-up visit on 12/16/2017 there was further increase in the PSA level to 12.90 ng/mL. He was reporting increased back pain with radiation to the left leg. He continued androgen deprivation therapy with Zoladex, but he also had further evaluation with bone scan and subsequently with CT of the lumbar spine. There was no evidence of metastatic disease on the bone scan. He lumbar spine CT did show an L4 compression fracture estimated at 30% without retropulsion. There were significant degenerative changes with moderate central canal stenosis at L2-3 and at L3-4 and there was moderate to severe foraminal stenosis at multiple sites. As of 03/18/2018 the PSA had further increased to 13.90 ng/mL. In the absence of symptomatic disease progression, he continued androgen deprivation with Zoladex. His other medical illnesses include hypertension, dyslipidemia, and coronary artery disease. He does have history of smoking, but has cut down to less than 1 pack of cigarettes daily. INTERIM HISTORY: By December 2018 the PSA had further increased to 20.93 ng/mL, and at that point he was having increasing pain in the left lower back and left leg. MRI of the lumbar spine on 12/23/2018 showed significant degenerative changes which included moderate central canal stenosis and foraminal narrowing at multiple levels. Also noted was moderate left hydronephrosis with ureterectasis extending into the pelvis.further evaluation with CT abdomen/pelvis on 01/03/2019 showed evidence of left ureteropelvic junction mass causing left ureterectasis and hydronephrosis. A left side presacral elongated soft tissue mass was noted, possibly of sacral nerve root origin, with the reported differential including schwannoma, neurofibroma, or perineural spread of neoplasm. He was referred to Dr. Puckett, and on 01/20/2019 he underwent cystoscopy and left ureteroscopy with biopsy of ureteral mass and with placement of left ureteral stent. Pathology showed fibrous tissue with chronic inflammation. There was no malignancy identified. As he appeared to be showing significant disease progression, he then began treatment with enzalutamide 160 mg daily in February 2019. He did show significant biochemical response with repeat PSA on 03/21/2019 decreasing to 3.95 ng/mL. He continued androgen deprivation with Zoladex together with enzalutamide 160 mg daily, which he appeared to be tolerating well. On 06/13/2019 he underwent cystoscopy with replacement of his left ureteral stent. The distal ureter was noted to have significant inflammatory changes, but no distinct papillary tumors were noted. As of his follow-up visit on 06/20/2019 there was further decrease in the PSA level to 0.36 ng/mL, and has a 09/30/2019 it was down to 0.17 ng/mL. He is seen for a scheduled visit. He has been feeling pretty good generally. He says he has felt sluggish, he does have limited activity. His ECOG score is 2. He has good appetite. He has not had fever. He has hot flashes, but they are tolerable. He says that yesterday he sustained a mild injury to his left leg while getting onto his tractor. It is still a little sore today. His pain is otherwise adequately managed with hydrocodone/APAP. He has a smoker's cough. He does not complain of shortness of breath or chest pain. He has no GI/ complaints other than frequent urination. He has some orthostatic lightheadedness. He has no focal neurologic symptoms. Medications: AmLODIPine Besylate 1 (5 mg) Tablet Oral daily, Aspirin 1 (81 mg) Tablet Oral daily, Atorvastatin Calcium (10 mg) Tablet Oral daily, Carvedilol 1 Tablet (of 6.25 mg) Oral b.i.d., Enzalutamide 4 Capsule (of 40 mg) Oral daily, gabapentin 1 Capsule (of 300 mg) Tablet t.i.d., Garlic 2 Capsule Oral daily, Hydrocodone-Acetaminophen 1 Tablet (of 5-325 mg) Oral q 8 hours PRN, Lisinopril 1 (10 mg) Tablet Oral daily, Plavix 1 (75 mg) Tablet Oral daily, Stool Softener 1 Tablet (of 100 mg) Oral daily, Triamterene-HCTZ 0.5 (37.5-25 mg) Tablet Oral daily, Venlafaxine HCl ER 1 Capsule (of 75 mg) Capsule SR 24 HR Oral daily Allergies: No Known Allergies. Review of Systems: Constitutional - He feels sluggish. His activity is limited. Appetite is good and weight is stable. He does not have fever. He does have hot flashes, but they are tolerable. ECOG score is 2, ENMT - He tends to have a runny nose in the mornings. No mouth sores. No sore throat or difficulty swallowing, Hematologic/Lymphatic - He has easy bruising, Respiratory - No shortness of breath. He has a smoker's cough. No pleuritic pain or hemoptysis, Cardiovascular - No angina pain. No palpitations, Gastrointestinal - No nausea or vomiting. No heartburn or acid reflux. No diarrhea or constipation. No blood in the stool or black stools, Genitourinary (M) - No dysuria or hematuria. He has frequent urination. No urgency or incontinence, Musculoskeletal - His pain is adequately managed with hydrocodone/APAP, Integumentary - No skin rash, Neurologic - No headache. He has some orthostatic lightheadedness. No numbness or tingling. No other focal neurologic symptoms, Psychiatric - No anxiety or depression. No insomnia. Vital Signs: Performed on Jan 03, 2020 14:46 Height - 72.00 in Weight - 245 lbs (HIGH) BSA - 2.32 sq.m BMI - 33.23 (HIGH) Temperature - 97.3 F (LOW) Pulse - 62 /min Respiration - 22 /min BP - 131/66 mm(hg) O2 Sat - 99 % Pain - 9 Physical Examination: Constitutional - He looks pretty good generally, Eyes - Sclerae nonicteric. Conjunctivae clear, ENMT - No lesions noted in the oral cavity, Hematologic/Lymphatic - No cervical, clavicular, or axillary adenopathy, Respiratory - Lungs are clear with diminished air movement bilaterally, Cardiovascular - Heart rhythm is regular with occasional premature beats. There is no murmur, gallop, or rub noted, Abdomen - Mildly distended. Liver and spleen are not enlarged. There is no abdominal mass or ascites noted and there is no inguinal adenopathy, Extremities - Mild edema. There is swelling of the left leg below the knee and there is the beginning of ecchymosis. The calf feels soft, Neurologic - No focal neurologic deficits noted. Lab/Imaging: Test performed on Dec 30, 2019 08:15 Sodium 137 mmol/L Testosterone, Total 8.6 ng/dL Potassium 4.3 mmol/L Chloride 100 mmol/L CO2 24 mmol/L Anion Gap 17.3 BUN 22 mg/dL Creatinine 0.9 mg/dL Cr Clearance (Est) 103.6400 mL/min Glucose 106 mg/dL Calcium 9.5 mg/dL Protein, Total 6.9 g/dL Albumin 4.1 g/dL Globulin 2.8 g/dL Bilirubin, Total 0.5 mg/dL ALT (SGPT) 11 U/L AST (SGOT) 15 U/L Alkaline Phosphatase 73 IU/L WBC 6.5 10 3/uL RBC 4.18 10 6/uL HGB 14.5 g/dL HCT 44.2 % MCV 105.7 fL MCH 34.7 pg MCHC 32.8 g/dL RDW 13.2 % Platelet Count 214 10 3/cmm MPV 12.2 fL Neutrophils 3.9 10 3/uL Lymphocytes 1.7 10 3/uL Monocytes 0.7 10 3/uL Eosinophils 0.2 10 3/uL Basophils 0.0 10 3/uL Neutrophil % 59.9 % Lymphocyte % 26.2 % Monocyte % 10.1 % Eosinophil % 3.2 % Basophils % 0.3 % NRBC % 0 % PSA 0.095 ng/mL Impression: 1. Patient with stage [place] 5 prostate cancer, early stage at initial diagnosis in 1999 and treated with radical prostatectomy. 2. He presented with castration sensitive stage IV, metastatic disease in the bone in May of 2014 with PSA 81.2. Androgen deprivation therapy was initiated on 05/08/14 with Zoladex and 2 weeks of bicalutamide. He has had a good clinical response with PSA walter of 0.25 ng/mL on 08/27/2015. His other medical illnesses include: 3. Hypertension. 4. Dyslipidemia. 5. Coronary artery disease. During the past year there has been a gradual rise in his PSA level. There were no obvious sites of metastatic involvement noted on his restaging CT scans or bone scan in June 2017. There was evidence of a new vertebral compression fracture at L4, but that did not appear to be overtly symptomatic. A subsequent DEXA scan on 07/10/2017 showed a decrease in the bone mineral density in both hips compared to the prior study from July 2014. As of his follow-up visit in July 2017, his PSA level had increased just slightly, to 5.93 ng/mL. It then continued to increase gradually, to 8.62 ng/mL in September and to 12.90 ng/mL in December. At that point he had developed significant back pain. He continued androgen deprivation therapy with Zoladex, but he did have further evaluation with bone scan and subsequently with CT of the lumbar spine. Based on those results, it appeared that his pain was due to underlying degenerative disease, as there was no obvious metastatic involvement noted. He initially did show some improvement in his lower back/hip pain with physical therapy. However, it had subsequently worsened, and as of his follow-up visit in December 2018 was further increase in the PSA level to 20.93 ng/mL. MRI of the lumbar spine did show significant degenerative changes, but that study also showed evidence of left hydronephrosis. Further evaluation with CT abdomen/pelvison 01/03/2019 showed evidence of left ureteropelvic junction mass with associated left ureterectasis and hydronephrosis. Also noted was a left side presacral elongated soft tissue mass felt to be possibly of sacral nerve root origin. On 01/20/2019 he underwent cystoscopy and left ureteroscopy with biopsy of left ureteral mass and with placement of left ureteral stent. The biopsy showed no evidence of malignancy. As of February 2019 there was further increase in the PSA level to 24.56 ng/mL. As he did appeared to be showing symptomatic disease progression, he then started treatment with enzalutamide 160 mg daily. He reported significant improvement in his left lower back pain following placement of the ureteral stent. He did show a significant biochemical response to the enzalutamide with repeat PSA on 03/21/2019 decreasing to 3.95 ng/mL. At that point he appeared to be tolerating it well, and he continued the enzalutamide together with Zoladex. On 06/13/2019 he underwent repeat cystoscopy and replacement of a left ureteral stent. He again noted improvement in lower back pain following the procedure. During subsequent follow-up his clinical status has been stable. He has continued to have limited activity, but he has been tolerating his treatment very well, and there has been gradual decline in his PSA level, now to 0.095 ng/mL. Plan: He will be given Zoladex 10.8 mg by subcutaneous injection. He continues enzalutamide 160 mg daily. Due to the leg injury, I did advise him to stop his aspirin for 1 week. I will see him again in 3 months. Signed By: Paul Francisco M.D. <<Signature on File>>
== END 2020-01-03 14:42 | disposition home or self-care (01) ==
LOC: ONCMED 14:46
PROVIDERS: PCP Family Medicine; Visit Provider Internal Medicine Medical Oncology
DX: C79.51 Secondary malignant neoplasm of bone (principal); C61 Malignant neoplasm of prostate; S89.92XA Unspecified injury of left lower leg, initial encounter; X58.XXXA Exposure to other specified factors, initial encounter; I10 Essential (primary) hypertension; E78.5 Hyperlipidemia, unspecified; I25.10 Atherosclerotic heart disease of native coronary artery without angina pectoris; Z96.0 Presence of urogenital implants; Z79.818 Long term (current) use of other agents affecting estrogen receptors and estrogen levels
CPT/HCPCS: 96372; 96402; 99214; J0897; J9202

== ENCOUNTER 2020-03-29 08:21 | Outpatient (CLI) | payer MEDICARE, OTHER, SELFPAY ==
--- NOTE | 2020-03-29 08:30 | XR_ITS ---
WS: [id number] KUB, 03/29/2020 Clinical Data: URETERAL OBSTRUCTION Comparison: KUB, 12/06/2019. Findings: The left ureteral stent remains in the same position. There are multiple pelvic clips unchanged. Ther e is a large amount of fecal material throughout the colon. Degenerative changes of lumbar vertebral bodies is severe. Fecal material obscures detail over both kidneys. XR/XR KUB [id number] Impression: No change in position of left ureteral stent.
== END 2020-03-29 08:22 | disposition home or self-care (01) ==
LOC: RAD 08:25
PROVIDERS: PCP Family Medicine; Visit Provider Urology
DX: N13.5 Crossing vessel and stricture of ureter without hydronephrosis (principal); Z96.0 Presence of urogenital implants
CPT/HCPCS: 74018; 81001

== ENCOUNTER 2020-03-30 08:20 | Outpatient (CLI) | payer MEDICARE, OTHER, SELFPAY ==
[2020-03-30 10:26] LABS: Basophils % 0.5 %; Eosinophils # 0.2 10^3/uL (0.0-0.8); Eosinophils % 3.9 %; Hematocrit 43.4 % (42.0-52.0); Lymphocytes # 1.6 10^3/uL (0.8-4.8); Lymphocytes % 25.5 %; Mean Corpuscular HGB Conc 32.3 g/dL (30.0-36.0); Mean Corpuscular Hemoglobin 34.1 pg (28.0-34.0); Mean Corpuscular Volume 105.6 fL (80-94); Mean Platelet Volume 12.4 fL (7.4-10.4); Monocytes # 0.7 10^3/uL (0.2-0.9); Monocytes % 11.7 %; Neutrophils # 3.54 10^3/uL (1.8-7.7); Neutrophils % 58.2 %; Nucleated Red Blood Cells % 0 %; Platelet Count 204 10^3/cmm (130-400); Red Blood Count 4.11 10^6/uL (4.1-5.3); Red Cell Distribution Width 13.2 % (12.1-15.1); White Blood Count 6.1 10^3/uL (4.0-10.0)
[2020-03-30 10:48] LABS: Prostate Specific Antigen 0.065 ng/mL (0-4); Testosterone Total 9.4 ng/dL (193-740)
[2020-03-30 10:59] LABS: Alanine Aminotransferase 11 U/L (0-41); Albumin Level 3.8 g/dL (3.5-5.2); Alkaline Phosphatase 54 IU/L (40-130); Aspartate Amino Transferase 17 U/L (0-40); Blood Urea Nitrogen 19 mg/dL (8-23); Calcium 9.5 mg/dL (8.5-10.5); Carbon Dioxide 23 mmol/L (22-29); Chloride 100 mmol/L (98-107); Globulin 3.1 g/dL (1.3-4.6); Glucose 105 mg/dL (65-115); Osmolality Calculated 281 mOsm/kg (285-295); Sodium 134 mmol/L (136-145); Total Bilirubin 0.5 mg/dL (0.15-1.2); Total Protein 6.9 g/dL (6.6-8.7)
[2020-03-30 11:05] LABS: Anion Gap 15.7 (5-19); Potassium 4.7 mmol/L (3.5-5.1)
== END 2020-03-30 08:21 | disposition home or self-care (01) ==
LOC: ONCMED 10:09
PROVIDERS: PCP Family Medicine; Visit Provider Internal Medicine Medical Oncology
DX: C61 Malignant neoplasm of prostate (principal); C79.51 Secondary malignant neoplasm of bone
CPT/HCPCS: 80053; 84153; 84403; 85025

== ENCOUNTER 2020-04-04 05:52 | Outpatient (CLI) | payer MEDICARE, OTHER, SELFPAY ==
[2020-04-04] MEDS: lidocaine 1% INJ 20 mL INJECTION (10:24)
[2020-04-04] MEDS: goserelin acetate 10.8 mg Implant IM (10:48)
--- NOTE | 2020-04-04 11:17 | ONC FU_ITS ---
[facility] Patient Note Patient: Mack Nash Unit #: [id number]: 1940 Dictated By: Sharda FowlerDate of Visit: Apr 04, 2020 Onc MED Follow-Up/Prog Note Chief Complaint: Prostate cancer. History of Present Illness: Mr Nash is 79 year-old man with the stage IV prostatic adenocarcinoma, metastatic to bone. He has a history of coronary artery disease, smoking and alcohol consumption. He was diagnosed with an early stage intermediate risk prostatic adenocarcinoma in 1999, Constantino score 5, PSA 20.6. He underwent a primary treatment with radical retropubic prostatectomy. Reportedly, the patient had recurrent detectable PSA within one year. In October of 2012 PSA measured 10.7, with further increase to 37.7 in October 2013 and further increase to 81.2 in May 2014. The bone scan on 05/08/2014 showed increased activity in the right superior ramus, right acetabulum as well as right femoral neck. The patient began treatment with Zoladex and 2 weeks therapy with Casodex on 05/08/2014. The patient was first seen by Dr. Shah on 07/03/2014. He had no pain associated with the right leg, hip, or pelvis. CT of the chest/ abdomen/pelvis on 07/04/2014 showed no evidence of distal metastatic disease. His DEXA scan on 07/10/2014 was normal. An MRI on 08/29/2014 showed a right hip lesion extending to the cortex. He completed right hip radiation treatment on 10/13/2014. He established care with orthopedic surgeon at [facility]. His PSA reached a walter of 0.25 ng/mL on 08/27/2015. A repeat PSA in November was up just slightly, to 0.32 ng/mL. By 05/28/2016 his PSA had increased to 0.81 ng/mL. Restaging CT scans of the chest, abdomen, and pelvis on 06/17/2016 showed stable right lower lobe subpleural nodules since 07/04/2014 and unlikely to represent metastatic lesions. There were no acute findings of the chest and no significant change from 07/04/2014. There were stable nonenlarged retroperitoneal para-adrenal lymph nodes noted. There was essentially near complete resolution of prior blastic metastatic disease involving right proximal femur, acetabulum, and superior pubic ramus. Bone scan performed 06/17/2016 showed stable findings. There were no new areas of increased uptake to suggest progression of metastatic disease. He continued androgen deprivation. During subsequent follow-up his PSA level continued to increase gradually. As of 03/27/2017 it was up to 4.62 ng/mL. Restaging CT scans of the chest, abdomen, and pelvis on 06/23/2017 showed no evidence of neoplastic process within the chest and no evidence of metastatic disease in the abdomen/pelvis or bony structures. There were extensive degenerative changes in the spine, and there was evidence of L4 anterior superior compression fracture compared to the study from 06/24/2016. Bone scan showed eccentric increased activity in lumbar spine felt to be most likely degenerative. The L4 vertebral body compression fracture was again noted. There was no evidence of osseous metastatic disease. A subsequent DEXA scan on 07/10/2017 showed a decrease in the bone mineral density in both hips compared to the prior study from July 2014. On his follow-up visit in July 2017 there was just a slight further increase in the PSA level, to 5.93 ng/mL, and as of 09/23/2017 it was up to 8.62 ng/mL. He had no evidence of symptomatic metastatic disease, and he just continued androgen deprivation with Zoladex. As of his follow-up visit on 12/16/2017 there was further increase in the PSA level to 12.90 ng/mL. He was reporting increased back pain with radiation to the left leg. He continued androgen deprivation therapy with Zoladex, but he also had further evaluation with bone scan and subsequently with CT of the lumbar spine. There was no evidence of metastatic disease on the bone scan. He lumbar spine CT did show an L4 compression fracture estimated at 30% without retropulsion. There were significant degenerative changes with moderate central canal stenosis at L2-3 and at L3-4 and there was moderate to severe foraminal stenosis at multiple sites. As of 03/18/2018 the PSA had further increased to 13.90 ng/mL. In the absence of symptomatic disease progression, he continued androgen deprivation with Zoladex. His other medical illnesses include hypertension, dyslipidemia, and coronary artery disease. He does have history of smoking, but has cut down to less than 1 pack of cigarettes daily. INTERIM HISTORY: By December 2018 the PSA had further increased to 20.93 ng/mL, and at that point he was having increasing pain in the left lower back and left leg. MRI of the lumbar spine on 12/23/2018 showed significant degenerative changes which included moderate central canal stenosis and foraminal narrowing at multiple levels. Also noted was moderate left hydronephrosis with ureterectasis extending into the pelvis.further evaluation with CT abdomen/pelvis on 01/03/2019 showed evidence of left ureteropelvic junction mass causing left ureterectasis and hydronephrosis. A left side presacral elongated soft tissue mass was noted, possibly of sacral nerve root origin, with the reported differential including schwannoma, neurofibroma, or perineural spread of neoplasm. He was referred to Dr. Puckett, and on 01/20/2019 he underwent cystoscopy and left ureteroscopy with biopsy of ureteral mass and with placement of left ureteral stent. Pathology showed fibrous tissue with chronic inflammation. There was no malignancy identified. As he appeared to be showing significant disease progression, he then began treatment with enzalutamide 160 mg daily in February 2019. He did show significant biochemical response with repeat PSA on 03/21/2019 decreasing to 3.95 ng/mL. He continued androgen deprivation with Zoladex together with enzalutamide 160 mg daily, which he appeared to be tolerating well. On 06/13/2019 he underwent cystoscopy with replacement of his left ureteral stent. The distal ureter was noted to have significant inflammatory changes, but no distinct papillary tumors were noted. As of his follow-up visit on 06/20/2019 there was further decrease in the PSA level to 0.36 ng/mL, and has a 09/30/2019 it was down to 0.17 ng/mL. Mr. Nash is here today for follow-up. He is due for Zoladex. He continues the Xtandi as well. He has tolerated it well overall. He reports that he has had 3-4 falls in the last couple of months. He states that he does feels weak in general and is , slides down . He denies any hard falls . He states he just gets weak in gradually ends up in the floor. He states that he has had no increase in pain. But states that he just feels weak. He states I felt like this when I had my heart attack before . He states he has not seen Dr. Siddiqi in about 6 months. He denies any chest pain or palpitations. Mrs. Nash reports that his heart rates tends to be low . He has had no syncopal episodes that they are aware of. He denies palpitations. He denies any lower extremity edema. He has had no orthopnea. He states that when he is sitting with his legs up that he has to lower them slowly and sit there for a few minutes because I am so dizzy if I doubt . He is states that he is afraid if he stands immediately he that he will fall. He has been utilizing a cane at home but it sounds as if it is unsteady for him at times as well. He denies diarrhea or constipation. He has had no neuropathy symptoms. He denies any headaches or vision changes. His appetite is good. He states his bladder is good. He did see Dr. Puckett within the last few weeks for follow-up on his urinary stent. He did have a KUB revealing that the left ureteral stent was patent. On the KUB it was noted that he had degenerative changes of the lumbar vertebral bodies which was severe. Mr. Nash reports that he has seen Keli Posadas in neurosurgery in the past but now Dr. Campos is gone he is not sure who he needs to follow-up with. His ECOG is 2-3. Past Medical History: Coronary artery disease Hypertension Past Surgical History: Hrt stent 2006 Knee surgery Prostatectomy Stent placment in the ureter in 2019 Allergies: No Known Allergies. Medications: AmLODIPine Besylate 1 (5 mg) Tablet Oral daily Aspirin 1 (81 mg) Tablet Oral daily Atorvastatin Calcium (10 mg) Tablet Oral daily Carvedilol 1 Tablet (of 6.25 mg) Oral b.i.d. Enzalutamide 4 Capsule (of 40 mg) Oral daily gabapentin 1 Capsule (of 300 mg) Tablet t.i.d. Garlic 2 Capsule Oral daily Hydrocodone-Acetaminophen 1 Tablet (of 5-325 mg) Oral q 8 hours PRN Lisinopril 1 (10 mg) Tablet Oral daily Plavix 1 (75 mg) Tablet Oral daily Stool Softener 1 Tablet (of 100 mg) Oral daily Triamterene-HCTZ 0.5 (37.5-25 mg) Tablet Oral daily Venlafaxine HCl ER 1 Capsule (of 75 mg) Capsule SR 24 HR Oral daily Family History: Mr. Nash's mother at age 78. Mr. Nash's father at age 65. Mother breast cancer age: Sister breast cancer age:. Social History: Mr. Nash is and he is retired. He is a daily smoker who has smoked 0.5 packs/day for 61 years. He is an active drinker.He consumes 1 drink/day 7 days/week. Mr. Nash reports contact with hazardous material. Mr. Nash reports the following support systems: lives with spouse, significant other, family, or friends, lives in own house, supportive family/friends willing to assist with needs, and adequate transportation available for expected visits. His diet consists of regular meals. He indicates his activity level as: daily activities. Patient is currently smoking and plans on not quitiing. Pt states that he drinks 6 oz whiskey daily. Review Of Symptoms: Constitutional Denies fevers, chills, excessive fatigue or weight loss. Persistent but stable hot flashes. Sudden onset weak spells . Falling 3-4 times over last couple of months due to weakness. Allergic/Immunologic No reactions. Eyes Denies significant visual changes. No diplopia. No amaurosis. ENMT Denies changes in hearing, sore throat, mouth sores, difficulty or changes in swallowing ability, and/or sinus drainage. Hematologic/Lymphatic The patient denies any tender or palpable lymph nodes. Easy bruising. Respiratory Denies chest pain, cough or hemoptysis. Denies orthopnea. uses c-pap at night. Cardiovascular Denies anginal chest pain, palpitations or orthopnea. Gastrointestinal Denies nausea, vomiting, diarrhea, GI bleeding, or constipation. Denies change in bowel habits and/or stool color, no heartburn or early satiety. Genitourinary (M) Denies hematuria, dysuria, increased frequency, urgency, hesitancy or incontinence. Musculoskeletal Denies swelling or redness. No decreased range of motion. Generalized arthritis. Integumentary Denies chronic rashes, inflammation, ulcerations or skin changes. Neurologic Denies headache, blurred vision, and no areas of numbness. No sensory problems. presents in wheelchair today. Psychiatric Denies insomnia, depression, mika or mood swings. Vital Signs: Performed on Apr 04, 2020 09:42 Height - 72.00 in Weight - lbs Temperature - 97.3 F (LOW) Pulse - 58 /min (LOW) Respiration - 22 /min BP - 126/74 mm(hg) O2 Sat - 96 % Pain - 6,2 - Ambulatory/capable of all self-care, unable to perform any work activities. Up and about more than 50% of waking hours. (ECOG) Physical Examination: Constitutional Alert, oriented, no acute distress. Skin pink, warm and dry. Head Normocephalic; atraumatic. Eyes Conjunctivae and sclerae are clear and without icterus. Pupils are reactive and equal. Neck Supple without masses or thyromegaly. No jugular venous distension. Hematologic/Lymphatic No petechiae or purpura. No tender or palpable lymph nodes in the cervical, supraclavicular, or axillary area. Respiratory Lungs are clear to auscultation without rhonchi or wheezing. Cardiovascular Regular rate and rhythm of heart without murmurs,clicks, gallops or rubs. Abdomen Non-tender, non-distended, no masses, ascites. No pulsatile masses. Back/Spine Non-tender to palpation. Extremities No visible deformities, no cyanosis, clubbing or edema. Musculoskeletal No tenderness or swelling, upper extremities have normal range of motion but limited ROM with lower extremity weakness noted bilaterally. Integumentary No rashes or lesions. Neurologic No sensory or motor deficits, normal cerebellar function. Psychiatric Alert and oriented times three. Coherent speech. Verbalizes understanding of our discussions today. Laboratory:Test performed on Apr 04, 2020 10:51 Creatinine 5.0 mg/dL Cr Clearance (Est) 19.45 mL/min Test performed on Mar 30, 2020 08:20 Sodium 134 mmol/L Testosterone, Total 9.4 ng/dL Potassium 4.7 mmol/L Chloride 100 mmol/L CO2 23 mmol/L Anion Gap 15.7 BUN 19 mg/dL Glucose 105 mg/dL Osmolality - Calculated 281 mOsm/kg Calcium 9.5 mg/dL Protein, Total 6.9 g/dL Albumin 3.8 g/dL Globulin 3.1 g/dL Bilirubin, Total 0.5 mg/dL ALT (SGPT) 11 U/L AST (SGOT) 17 U/L Alkaline Phosphatase 54 IU/L WBC 6.1 10 3/uL RBC 4.11 10 6/uL HGB 14.0 g/dL HCT 43.4 % MCV 105.6 fL MCH 34.1 pg MCHC 32.3 g/dL RDW 13.2 % Platelet Count 204 10 3/cmm MPV 12.4 fL Neutrophils 3.54 10 3/uL Lymphocytes 1.6 10 3/uL Monocytes 0.7 10 3/uL Eosinophils 0.2 10 3/uL Basophils 0.0 10 3/uL Neutrophil % 58.2 % Lymphocyte % 25.5 % Monocyte % 11.7 % Eosinophil % 3.9 % Basophils % 0.5 % NRBC % 0 % PSA 0.065 ng/mL Impression: 1. Patient with stage Constantino 5 prostate cancer, early stage at initial diagnosis in 1999 and treated with radical prostatectomy. 2. He presented with castration sensitive stage IV, metastatic disease in the bone in May of 2014 with PSA 81.2. Androgen deprivation therapy was initiated on 05/08/14 with Zoladex and 2 weeks of bicalutamide. He has had a good clinical response with PSA walter of 0.25 ng/mL on 08/27/2015. His other medical illnesses include: 3. Hypertension. 4. Dyslipidemia. 5. Coronary artery disease. During the past year there has been a gradual rise in his PSA level. There were no obvious sites of metastatic involvement noted on his restaging CT scans or bone scan in June 2017. There was evidence of a new vertebral compression fracture at L4, but that did not appear to be overtly symptomatic. A subsequent DEXA scan on 07/10/2017 showed a decrease in the bone mineral density in both hips compared to the prior study from July 2014. As of his follow-up visit in July 2017, his PSA level had increased just slightly, to 5.93 ng/mL. It then continued to increase gradually, to 8.62 ng/mL in September and to 12.90 ng/mL in December. At that point he had developed significant back pain. He continued androgen deprivation therapy with Zoladex, but he did have further evaluation with bone scan and subsequently with CT of the lumbar spine. Based on those results, it appeared that his pain was due to underlying degenerative disease, as there was no obvious metastatic involvement noted. He initially did show some improvement in his lower back/hip pain with physical therapy. However, it had subsequently worsened, and as of his follow-up visit in December 2018 was further increase in the PSA level to 20.93 ng/mL. MRI of the lumbar spine did show significant degenerative changes, but that study also showed evidence of left hydronephrosis. Further evaluation with CT abdomen/pelvison 01/03/2019 showed evidence of left ureteropelvic junction mass with associated left ureterectasis and hydronephrosis. Also noted was a left side presacral elongated soft tissue mass felt to be possibly of sacral nerve root origin. On 01/20/2019 he underwent cystoscopy and left ureteroscopy with biopsy of left ureteral mass and with placement of left ureteral stent. The biopsy showed no evidence of malignancy. As of February 2019 there was further increase in the PSA level to 24.56 ng/mL. As he did appeared to be showing symptomatic disease progression, he then started treatment with enzalutamide 160 mg daily. He reported significant improvement in his left lower back pain following placement of the ureteral stent. He did show a significant biochemical response to the enzalutamide with repeat PSA on 03/21/2019 decreasing to 3.95 ng/mL. At that point he appeared to be tolerating it well, and he continued the enzalutamide together with Zoladex. On 06/13/2019 he underwent repeat cystoscopy and replacement of a left ureteral stent. He again noted improvement in lower back pain following the procedure. During subsequent follow-up his clinical status has been stable. He has continued to have limited activity, but he has been tolerating his treatment very well, and there has been gradual decline in his PSA level, now to 0.065 ng/mL. Plan: 1. Proceed with Zoladex 10.8 mg by subcutaneous injection. 2. He continues enzalutamide 160 mg daily. 3. Labs from March 30, 2020 were reviewed in detail discussed with Mr. Mrs. Nash and a copy was given to them. WBC 6.1, hemoglobin 14, MCV is 105.6 platelets 204,000 ANC is 3500. Potassium 4.7 creatinine 0.9 random glucose 105 LFTs are normal his alk phos is normal at 54. Testosterone 9.4 and PSA was 0.065. I did request that we add a vitamin B12 (due to the elevated MCV) TSH due to fatigue and vitamin D due to the muscle pain/myalgia. We will call him with those results when they are available. 4. I have asked that he be seen back at Dr. Ferris's office for evaluation of any cardiac etiology of these sudden weak spells. He really did not complain of palpitations but they have not checked his heart rate or blood pressure during with her spells . I did ask Ms. Nash to check his heart rate and blood pressure when he has a spell. They do not have a glucometer at home to check either. My big concern is that he states that this is exactly how it felt when I have a heart attack before . 5. He may need further follow-up with neurology to evaluate if there is anything that could be done with the degenerative disc disease in his back. However we will do cardiac work-up first. 6. He does need utilization of a standard walker because he is having increased falls. He has upper extremity strength to maneuver a standard walker. He requires a walker to meet his mobility related activities of daily living. The walker would assist him in toileting, bathing, dressing and presenting for meals. It would also be beneficial for him and transferring from seated to standing positions as well as giving him some stability when he is attempting to ambulate to present for continuation of care. 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 I do feel he has the ability to use the walker safely at this time. His functional mobility deficit can be sufficiently resolved with the use of a walker at this time. In regards to his prostate cancer we will see him back in 3 months with CBC CMP testosterone and PSA. He will be due for Zoladex at that time. He continues the Xtandi. If we cannot find any other etiology for his weakness we may have to give him a trial/break off of the Xtandi to see if this resolves his current sudden week and dizzy spells. He is agreeable to see cardiology we can get him in there. 8. and Mrs. Nash have been encouraged to contact us in the interim should questions or problems arise. Addendum Mr. Nash is receiving Prolia for bone involvement. His last dose of Prolia was January 03, 2020. He will be due again at his June 2020 visit. Signed By: Sharda Fowler-, [facility] Paul Francisco MD <<Signature on File>>
[2020-04-04 11:29] LABS: 25 Hydroxy Vitamin D 69 ng/mL (30-100); Thyroid Stimulating Hormone 2.08 uIU/mL (0.27-4.20); Vitamin B12 599 pg/mL (232-1245)
== END 2020-04-04 05:53 | disposition home or self-care (01) ==
LOC: ONCMED 05:54
PROVIDERS: PCP Family Medicine; Visit Provider Nurse Practitioner
DX: C61 Malignant neoplasm of prostate (principal); C79.51 Secondary malignant neoplasm of bone; I10 Essential (primary) hypertension; E78.5 Hyperlipidemia, unspecified; I25.10 Atherosclerotic heart disease of native coronary artery without angina pectoris; M79.10 Myalgia, unspecified site; R53.83 Other fatigue; R79.89 Other specified abnormal findings of blood chemistry
CPT/HCPCS: 82306; 82607; 84443; 96372; 96402; 99214; J9202

== ENCOUNTER 2020-04-05 15:14 | Outpatient (CLI) | payer MEDICARE, OTHER, SELFPAY ==
--- NOTE | 2020-04-05 15:45 | USCV_ITS ---
Mack Nash Age: 79 Gender: M : 1940 Exam Date: 04/05/2020 15:30 Ordering Phys: Betty Sevilla Technologist: Vane Castellanos Exam Location: [facility] [place] Indication: Dizziness, weakness BP: / HR: 52 Rhythm: Sinus bradycardia Technical Quality: Suboptimal MEASUREMENTS (Male / Female) Normal Values 2D ECHO LV Diastolic Diameter PLAX 4.2 cm 4.2 - 5.9 / 3.9 - 5.3 cm LV Systolic Diameter PLAX 3.3 cm LV Chamber Size 4.7 cm IVS Diastolic Thickness 2.7 cm 0.6 - 1.0 / 0.6 - 0.9 cm IVS Systolic Thickness 2.1 cm LVPW Diastolic Thickness 1.4 cm 0.6 - 1.0 / 0.6 - 0.9 cm LVPW Systolic Thickness 1.7 cm RV Chamber Size 2.3 cm LVOT Diameter 2.1 cm LV Ejection Fraction 2D Teich 42.9 % LV Ejection Fraction MOD 2C 53.7 % LV Ejection Fraction 2C AL 54.7 % LA Diameter 3.8 cm LA Width 3.8 cm LA Height 6.1 cm RA Width 3.3 cm RA Height 5.9 cm Aorta at Sinotubular Diameter 3.6 cm M-MODE LV Diastolic Diameter MM 6.4 cm 4.2 - 5.9 / 3.9 - 5.3 cm LV Systolic Diameter MM 5.4 cm LV Ejection Fraction MM Teich 33.6 % IVS Diastolic Thickness MM 1.5 cm 0.6 - 1.0 / 0.6 - 0.9 cm IVS Systolic Thickness MM 1.6 cm LVPW Diastolic Thickness MM 1.7 cm 0.6 - 1.0 / 0.6 - 0.9 cm LVPW Systolic Thickness MM 1.7 cm Aortic Annulus Diameter 3.9 cm LA Ao Ratio MM 1.0 MV E Point Septal Separation 1.4 cm DOPPLER AV Peak Velocity 132.0 cm/s LVOT Peak Velocity 88.0 cm/s AV Area Cont Eq vti 2.3 cm squared AV Area Cont Eq pk 2.3 cm squared MV Area PHT 3.7 cm squared Mitral E to A Ratio 1.0 MV E' Velocity 32.0 cm/s Mitral E to MV E' Ratio 9.8 Mitral E to LV E' Lateral Ratio 10.1 Mitral E to LV E' Septal Ratio 9.5 TR Peak Velocity 220.0 cm/s TR Peak Gradient 19.4 mmHg TV Peak E Velocity 50.0 cm/s Right Atrial Pressure 3.0 mmHg Pulmonary Artery Systolic Pressu 22.4 mmHg PV Peak Velocity 61.0 cm/s RV Acceleration Time 0.1 s RV Ejection Time 0.3 s RV AcT/ET 0.3 FINDINGS Left Ventricle Normal left ventricular cavity size. Normal left ventricular systolic function. No regional wall motion abnormalities. Left ventricular ejection fraction is estimated at 55 %. Grade I/IV diastolic dysfunction (abnormal relaxation filling pattern), normal to mildly elevated filling pressures. Right Ventricle The right ventricle is normal in size and function. Right Atrium The right atrium is normal in size. Left Atrium The left atrium is normal in size. Mitral Valve Mildly thickened mitral valve. No mitral valve stenosis. Mild mitral valve regurgitation. Aortic Valve Mild aortic valve calcification. No aortic valve stenosis. Mild aortic valve regurgitation. Tricuspid Valve Structurally normal tricuspid valve without significant stenosis or regurgitation. Pulmonary artery systolic pressure is normal. Pulmonic Valve Structurally normal pulmonic valve without significant stenosis. There is no pulmonic regurgitation. Pericardium Normal pericardium without effusion. Aorta Normal ascending aorta dimension. CONCLUSIONS 1-Normal left ventricular cavity size. Normal left ventricular systolic function. No regional wall motion abnormalities. Left ventricular ejection fraction is estimated at 55 %. Grade I/IV diastolic dysfunction (abnormal relaxation filling pattern), normal to mildly elevated filling pressures. 2-There is no pericardial effusion. 3-No significant valve abnormalities. 4-Pulmonary artery systolic pressure is within normal limits. 5-Right atrial pressure is around 5 mm of mercury. 6-There are no prior echocardiogram studies to compare. Ronnell Torres MD (Electronically Signed) Final Date: 05 April 2020 17:56 S
== END 2020-04-05 15:15 | disposition home or self-care (01) ==
LOC: RAD 15:17
PROVIDERS: PCP Family Medicine; Visit Provider Nurse Practitioner Family
DX: R42 Dizziness and giddiness (principal); R53.1 Weakness
CPT/HCPCS: 93306

== ENCOUNTER 2020-05-02 09:08 | Outpatient (CLI) | payer MEDICARE, OTHER, SELFPAY ==
[2020-05-02 09:36] VITALS: BMI 34.2
--- NOTE | 2020-05-02 09:53 | ECG_ITS ---
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 The perfusion scan will be documented separately. DATA: Baseline heart rate was 72 beats per minute. Baseline blood pressure was 138/68 millimeters of mercury. Target heart rate was 143. Maximum heart rate achieved was 73. which was 51 % of the predicted target heart rate. Maximum blood pressure was 138/68 millimeters of mercury. The reason for ending the test was completion of the protocol. The patient did not experience any symptoms. ELECTROCARDIOGRAM: BASELINE: Sinus bradycardia. Normal axis. Otherwise, no ST-T changes suggestive of ischemia noted. No arrhythmia noted. After Lexiscan injection, frequent PVCs were noted otherwise no ST-T changes suggestive of ischemic noted. No arrhythmia noted. CONCLUSION: Please note due to baseline abnormality of the EKG specificity and sensitivity of the EKG portion of LexiScan MIBI stress test will be low 1. EKG not suggestive of ischemia 2. Lexiscan injection unremarkable. 3. Perfusion scan will be documented separately. Electronically Signed On 05-02-2020 18:32:14 CDT by LESLI PURI
--- NOTE | 2020-05-02 09:54 | NMCV_ITS ---
NM keenan perf SPECT r/s* [id number] Mack Nash Age: 79 Gender: M : 1940 Exam Date: 05/02/2020 10:50 Ordering Phys: Betty Sevilla Technologist: RODRIGO Dickinson Exam Location: [facility] Indications: Fatigue STRESS TEST Please see separate stress test report in [facility] for full findings IMAGE PROTOCOL Rest/Stress 1 Lexiscan Day Radiopharmaceutical Dose (mCi) Administration Site Administered by Rest: Tc-99m 11.0 IV RODRIGO Dickinson Sestamibi Stress:Tc-99m 33.0 IV RODRIGO Dickinson Sestamibi Rest: 02-May-2020 60 Discovery 630 Stress: 02-May-2020 45 Discovery 630 0.4mg Lexiscan. Supine position only as patient was unable to lay prone. SPECT RESULTS Technical Quality: Good Raw Data Analysis: Normal Image Corrections: Patient motion artifact - motion correction applied stress images. Summed Stress Score: 27 Summed Rest Score: 20 Summed Difference Score: 7 PERFUSION FINDINGS Large area of fixed perfusion defect noted in basal distal inferior and basal to distal lateral wall suggestive of old myocardial infarction versus scarring. Medium-sized area of moderate to severe reversibility noted in mid to distal anterior and anterolateral wall suggestive of possible ischemia and lesion in the LAD territory. FUNCTIONAL RESULTS (calculated via Gated SPECT) Stress Image LV EF (%): 46 Stress EDV (mL):146 TID: 1.01 Stress ESV (mL):79 Rest Image LV EF (%): 46 FUNCTIONAL FINDINGS: Inferior and lateral wall akinesis, anterior and anterolateral wall hypokinesis IMPRESSIONS Large area of old myocardial infarction versus scarring noted in the inferior and lateral wall. Medium-sized area of moderate to severe ischemia noted in mid to distal anterior and anterolateral wall suggestive of possible lesion in the LAD territory. EKG segment will be documented separately. Ronnell Torres MD (Electronically Signed) Final Date: 02 May 2020 17:36 S
--- NOTE | 2020-05-02 12:18 | SUR.PREOP ---
Patient reports no pain or discomfort prior to the start of the procedure.
[2020-05-02] MEDS: regadenoson 0.4 Mg/5 ml Syringe IVP (12:36)
[2020-05-02 12:56] VITALS: BP 126/71; PULSE 82
== END 2020-05-02 09:09 | disposition home or self-care (01) ==
LOC: CDL 09:09
PROVIDERS: PCP Family Medicine; Visit Provider Nurse Practitioner Family
DX: R53.83 Other fatigue (principal); I25.2 Old myocardial infarction; R06.02 Shortness of breath; I25.9 Chronic ischemic heart disease, unspecified
CPT/HCPCS: 78452; 93017; A9500; J2785

== ENCOUNTER 2020-05-25 10:32 | Outpatient (CLI) | payer MEDICARE, OTHER, SELFPAY ==
[2020-05-25 11:26] LABS: Basophils % 0.5 %; Eosinophils # 0.4 10^3/uL (0.0-0.8); Eosinophils % 5.8 %; Hemoglobin 13.9 g/dL (11.7-16.6); Lymphocytes # 1.6 10^3/uL (0.8-4.8); Lymphocytes % 25.5 %; Mean Corpuscular HGB Conc 32.3 g/dL (30.0-36.0); Mean Corpuscular Hemoglobin 33.9 pg (28.0-34.0); Mean Corpuscular Volume 104.9 fL (80-94); Mean Platelet Volume 11.8 fL (7.4-10.4); Monocytes # 0.6 10^3/uL (0.2-0.9); Monocytes % 9.4 %; Neutrophils # 3.74 10^3/uL (1.8-7.7); Neutrophils % 58.6 %; Nucleated Red Blood Cells % 0 %; Platelet Count 194 10^3/cmm (130-400); Red Cell Distribution Width 12.6 % (12.1-15.1); White Blood Count 6.4 10^3/uL (4.0-10.0)
[2020-05-25 11:42] LABS: INR 1.02 (0.83-1.21); Prothrombin Time (Patient) 13.7 Seconds (12.0-15.1)
[2020-05-25 11:54] LABS: Anion Gap 12.2 (5-19); Blood Urea Nitrogen 19 mg/dL (8-23); Calcium 9.1 mg/dL (8.5-10.5); Carbon Dioxide 28 mmol/L (22-29); Chloride 102 mmol/L (98-107); Glucose 102 mg/dL (65-115); Osmolality Calculated 288 mOsm/kg (285-295); Potassium 4.2 mmol/L (3.5-5.1); Sodium 138 mmol/L (136-145)
== END 2020-05-25 10:33 | disposition home or self-care (01) ==
LOC: LAB 10:57
PROVIDERS: PCP Family Medicine; Visit Provider Internal Medicine Cardiovascular Disease
DX: Z01.818 Encounter for other preprocedural examination (principal); I25.10 Atherosclerotic heart disease of native coronary artery without angina pectoris
CPT/HCPCS: 36415; 80048; 85025; 85610; 87635

== ENCOUNTER 2020-05-29 07:29 | Day surgery (SDC) | payer MEDICARE, OTHER, SELFPAY ==
[2020-05-29] VITALS (14 sets, daily range): BP systolic 142–167; BP diastolic 66–98; PULSE 45–57; RESP 13–21; TEMP 36.7; O2SAT 96–99; BMI 33.5
--- NOTE | 2020-05-29 06:30 | XACV_ITS ---
Ht: 180 cm Wt: 109 kg BSA: 2.37 m2 Gender: Male : 1940 Any Known Allergies: No known allergies Exam Priority: Routine Procedure(s): Procedure Description: Diagnostic procedure Procedure Description: Left Heart Catheterization Procedure Description: Left ventriculography Procedure Description: Coronary Angiography Diagnostic Cath Status: Elective Diagnostic Findings * LM has 0% stenosis. * LAD has 0% stenosis. * 1st Diag: Moderate 50% stenosis, SAUL: 3 flow. * pCIRC to dCIRC: Mild 40% stenosis, SAUL: 3 flow. * pRCA to mRCA: Mild 30% stenosis, SAUL: 3 flow. * Coronary angiography shows left dominance. Conclusions 1. There is mild coronary artery disease with two vessel disease. 2. Mild left ventricular systolic dysfunction. Ejection fraction of 40%. 3. Indication for left heart cath: Worsening of shortness of breath and chest pain despite of optimization of medicine suspicious for unstable angina. Recommendations * Continue current medical management and risk factor modification. Diagnostic RX Recommendation: medical therapy and/or counseling Ventriculography Ejection Fraction: 40.0 % Pressures Phase:Rest AO : 105 / 51 ( 74 ) @ 3:57:00 AM 108 / 57 ( 78 ) @ 3:59:00 AM 116 / 56 ( 79 ) @ 4:01:00 AM 141 / 59 ( 90 ) @ 4:11:00 AM 142 / 60 ( 89 ) @ 4:11:00 AM LV : 151 / 5 / @ 4:10:00 AM 140 / 2 / @ 4:11:00 AM 142 / 3 / @ 4:11:00 AM Valves Phase:DefaultPhase AV : 0.0 @ 10:22:10 AM 0.0 @ 10:22:10 AM AV Mean Gradient: 0.0 @ 10:22:10 AM Clinical Evaluation EBL: 5mL-10mL Procedural Details Procedure Consent Obtained. Current Diagnosis : Chest Pain. Pre-Procedure Time Out. Identified patient by full name and date of as verbalized by the patient/guarantor. Does the consent match the physician's order: Yes. Accurate & Complete Informed Consent: Yes. Inpatient/Outpatient History & Physical on Chart: Yes. If H&P is completed, is and addenduem needed: Yes; If yes, is the addendum complete: Yes. Visualize and Verify Site with Patient/Guarantor: N/A. Relevant Radiology Images available: Yes. Pre-op teaching completed and patient verbalized understanding. The risks, benefits, and alternatives of sedation and/or procedure were discussed by physician. The patient agrees to continue. Procedure started. [facility] Clinical Fraility Score: 3: Managing Well. 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 Chest Pain Symptom Assessment: Typical Angina Symptoms. Correct patient, site and procedure confirmed by cath team. Current diagnosis: Chest Pain. PERRLA. 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 Lungs clear x 5 lobes. IV Site on Arrival: 20 gauge in the left anticubital. IV Fluids: 0.9% NaCl at KVO. 0 mL infused prior to medical lab technician. Pre Procedural Pulses: bilateral dorsalis pedis was 1+. Pre Procedural Pulses: bilateral posterior tibial was 1+. Pre Procedural Pulses: right radial was 2+. Pre Procedural Pulses: left radial was 3+. Oxygen started at 2liters/min via nasal canula. right groin was prepped with chloroprep then draped in the usual sterile fashion. right radial was prepped with chloroprep then draped in the usual sterile fashion. Physician notified. Baseline sample Acquired. HR: 47 BPM. Physician arrived. Patient's family unavailable. Physician scrubbed in. Immediate Pre-Procedure Time Out. Correct Patient: Yes; Correct Procedure: Yes; Correct Site: Yes; Correct Patient Position: Yes; Correct Supplies: Yes; Dried Flammable Prep: Yes; Blood Products Available: N/A;. Lidocaine 1% infiltrated to the right radial. Arterial access obtained. A 5 ukrainian Carroll catheter in over wire. Multiple views taken of right coronary artery. Catheter redirected to the LCA. Multiple views taken of left coronary artery. Catheter removed over the exchange wire. A 5 ukrainian Angled Pig catheter in over wire. EDP Sample taken: LV 151/5,22; HR: 49 BPM; SpO2: 100%. LV gram performed in BAKER @ 10 mL/second for a total of 30 mL. EDP Sample taken: LV 140/2,17; HR: 50 BPM; SpO2: 100%. Pullback taken: LV 142/3,17; AO 141/59(90); Mean: 0mmHg, Peak to Peak: 0mmHg, SEP: 13sec/min; HR: 50 BPM; SpO2: 100%. Catheter removed over the exchange wire. Physician scrubbed out. Physician review of cine films. A TR Band was successful obtaining hemostatsis at the Right Radial artery insertion site. TR band placed. Hemostasis obtained. Post Procedure: Pulses reassessed and unchanged. PERRLA. 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 No VTE prophylaxis required. Contrast type used: Omnipaque 300 mgI/mL, 500 mL bottle. Medication's Wasted: Lidocaine 1% = 18 mL. Medication's Wasted: Nitro = 49.8 mcg. Medication's Wasted: Heparin = 1000 units. Total IV fluids: 100 mL. Post-op diagnosis: Non obstructive CAD. Complications: None. Estimated blood loss: 5mL-10mL. Procedure completed. Patient transferred by wheelchair to CPRU. Vital chart was stopped. Access Site Site: Right Radial artery Sheath Size: 6 Fr Hemostasis Method: TR Band Hemostasis Success: Successful Procedure Medications Start: 9:34 AM Stop: 9:34 AM Medication: Versed Amount: 1 mg Route: I.V. Start: 9:47 AM Stop: 9:47 AM Medication: Versed Amount: 1 mg Route: I.V. Start: 9:47 AM Stop: 9:47 AM Medication: Fentanyl Amount: 50 mcg Start: 9:56 AM Stop: 9:56 AM Medication: Nitrogylcerin Amount: 200 mcg Route: I.A. Start: 9:57 AM Stop: 9:57 AM Medication: Heparin Amount: 5000 units Route: I.V. I, the attending physician, have reviewed and verified all procedure medications. Yes, all medications given per verbal order History/Risk Factors Dyslipidemia: No Peripheral Arterial Disease (PAD): No Myocardial Infarction (WV): No Obesity: No Renal Disease: No Prior Interventions PCI: Yes CABG: No Valve Surgery: No Report Signatures Finalized by Ronnell Torres MD on 06/11/2020 07:01 PM
[2020-05-29] MEDS: diphenhydrAMINE 50 mg Capsule PO (08:04)
--- NOTE | 2020-05-29 09:36 | W.PM.OPSFHP ---
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 For worsening of shortness of breath patient underwent Lexiscan which showed severe reversibility in the anterior wall suggestive of possible lesion in LAD territory. It is the reason patient today is here for left heart cath. Patient is already taking clopidogrel. Patient has been explained all risk benefit and alternative for the procedure. Patient has been explained the risk of emergent CABG, bleeding, arrhythmia, stroke, worse case scenario . He understands it and would like to proceed with it. Medications/Allergies* Home Medications Medication Instructions Recorded Confirmed Type amlodipine 5 mg tablet 5 mg PO DAILY 08/23/19 05/29/20 History aspirin 81 mg tablet,delayed 81 mg PO DAILY 08/23/19 05/29/20 History release atorvastatin 10 mg tablet 10 mg PO QMWF 08/23/19 05/29/20 History carvedilol 6.25 mg tablet 6.25 mg PO BID 08/23/19 05/29/20 History docusate sodium 100 mg capsule 100 mg PO BID 08/23/19 05/29/20 History gabapentin 100 mg capsule 100 mg PO TID 08/23/19 05/29/20 History hydrocodone 5 mg-acetaminophen 325 1 tab PO Q8H PRN 08/23/19 05/29/20 History mg tablet potassium chloride 10 mEq 10 meq PO DAILY 08/23/19 05/29/20 History capsule,extended release triamterene 37.5 1 cap PO DAILY 08/23/19 05/29/20 History mg-hydrochlorothiazide 25 mg capsule venlafaxine 75 mg tablet 75 mg PO DAILY 08/23/19 05/29/20 History clopidogrel 75 mg tablet 75 mg PO DAILY 09/13/19 05/29/20 History enzalutamide 40 mg capsule 160 mg PO DAILY 09/13/19 05/29/20 History Allergies/Adverse Reactions Allergy/AdvReac Type Severity Reaction Status Date / Time No Known Allergies Allergy Verified 05/02/20 09:52 Current Medications: Generic Name Dose Route Start Last Admin Trade Name Rejiq PRN Reason Stop Dose Admin Sodium Chloride 1,000 mls @ 50 mls/hr 05/29/20 06:30 05/29/20 07:41 Sodium Chloride 0.9% IV 05/30/20 02:29 Not Given .Q20H ONE Pertinent History/Comorbid Conditions* Medical History (Updated 04/16/20 @ 09:54 by JJ Li) Acquired spondylolisthesis Coronary artery disease Extrinsic ureteral obstruction Intervertebral disc disorders with radiculopathy, 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 Prostate cancer metastatic to bone Retained ureteral stent Sacral mass Surgical History (Updated 08/26/19 @ 11:36 by Yadira Chavarria APRN) History of radical prostatectomy History of ureter stent left, 01/20/2019 Hx of heart artery stent Family History (Updated 08/23/19 @ 16:52 by Valarie Olivares LPN) Cancer Mother Hypertension Stroke Father Social History Smoking and tobacco status: current every day smoker Alcohol intake: current Alcohol intake frequency: holidays/special occasions only Adopted: No Caregiver/support person: No Lives independently: No Household members: spouse Marital status: service: No Current occupational status: retired History of recent travel: No Current gender identity: Male Pertinent Exam Findings alert, oriented x 3, clear to auscultation bilaterally and regular rate & rhythm Conscious Sedation Assessment PATIENT ASSESSED PRIOR TO SEDATION, WITH NO CHANGE NOTED: Yes AIRWAY EVAL/ANESTHESIA PLAN: normal airway, see other exam findings, ASA II, Risks, benefits & alternatives of sedation and/or procedure discussed and Patient agrees to continue as planned Recommendations Surgery/Procedure today Other Plans: Left heart cath with possible PCI if indicated Coding Level of Care Code Acute Office Auditor for Phillip Pina
--- NOTE | 2020-05-29 09:40 | W.PM.OPSUD ---
Surgery/Procedure H&P Update DATE OF PROCEDURE: May 29, 2020 DATE H&P PERFORMED: 05/29/20 H&P UPDATE INFORMATION: I have examined patient prior to procedure and No changes to prior documentation PREOP DIAGNOSIS: Abnormal stress test, fatigue, shortness of breath PLANNED PROCEDURE: Operation Date: 05/29/20 08:30 Proposed Procedures p left Cardiac Catheterization 65903 r94.39(Left) - Ronnell Torres MD PHYSICAL EXAM: alert, oriented x 3 and clear to auscultation bilaterally AIRWAY EVAL/ANESTHESIA PLAN: normal airway, see other exam findings, ASA II, Risks, benefits & alternatives of sedation and/or procedure discussed and Patient agrees to continue as planned
--- NOTE | 2020-05-29 10:25 | PC.NURSE ---
recovery pt received in recovery from [facility] from a diagnostic [facility]. tr band in place with no bruising. distal radial pulse palpable. no pain reported. pt alert and oriented x3. pt hooked up to monitor for vitals. pt in sinus reese and asymptomatic. bed down and locked. call light at side of bed. will continue to monitor and release air from tr band per protocol.
== END 2020-05-29 14:37 | disposition home or self-care (01) ==
PROVIDERS: PCP Family Medicine; Visit Provider Internal Medicine Cardiovascular Disease
DX: I25.10 Atherosclerotic heart disease of native coronary artery without angina pectoris (principal); R94.39 Abnormal result of other cardiovascular function study; R53.83 Other fatigue; R06.02 Shortness of breath; I10 Essential (primary) hypertension; E78.5 Hyperlipidemia, unspecified; Z85.46 Personal history of malignant neoplasm of prostate; F17.210 Nicotine dependence, cigarettes, uncomplicated
CPT/HCPCS: 12345; 36415; 93452; C1769; C1887; C1894; J1644; J2250; J3010; J3490; J7030; Q0163; Q9967

== ENCOUNTER 2020-06-04 09:17 | Outpatient (CLI) | payer MEDICARE, OTHER, SELFPAY ==
--- NOTE | 2020-06-04 09:31 | XRR_ITS ---
PROCEDURE INFORMATION: Exam: XR Abdomen, 1 View Exam date and time: 06/04/2020 9:35 AM Age: 79 years old Clinical indication: Condition or disease; Kidney or ureter condition; Calculus (stone) in kidney and calculus (stone) in ureter; Prior surgery; Surgery type: Prostate ureteral stent; Additional info: Extrinsic ureteral obstruction TECHNIQUE: Imaging protocol: XR of the abdomen. Views: Frontal supine view of the abdomen. 1 View. COMPARISON: CR XR KUB [id number] 03/29/2020 8:36 AM FINDINGS: Tubes, catheters and devices: A left ureteral stent projects in satisfactory position. Numerous surgical clips are present in the pelvis. Gastrointestinal tract: Normal. No bowel dilation. Vasculature: Multiple vascular calcifications are present. No new calcifications are seen in the projection of the kidneys or ureters. Bones/joints: Chronic degenerative changes are present in the lumbar spine with sclerosis disc space narrowing and osteophytes. XR/XR KUB [id number] IMPRESSION: 1. Stable left ureteral stent position. 2. No acute abnormalities are seen.
== END 2020-06-04 09:18 | disposition home or self-care (01) ==
PROVIDERS: PCP Family Medicine; Visit Provider Urology
DX: N13.5 Crossing vessel and stricture of ureter without hydronephrosis (principal); Z96.0 Presence of urogenital implants
CPT/HCPCS: 74018; 81003

== ENCOUNTER → 2020-06-05 10:19 | Outpatient (BNVA) | payer MEDICARE, OTHER, SELFPAY | PROVIDERS: PCP Family Medicine; Visit Provider Urology | DX: Z96.0 Presence of urogenital implants (principal) | CPT/HCPCS: 87635 ==

== ENCOUNTER → 2020-06-06 10:02 | Outpatient (BNVA) | payer MEDICARE, OTHER, SELFPAY | PROVIDERS: PCP Family Medicine; Visit Provider Nurse Practitioner Family | DX: I25.118 Atherosclerotic heart disease of native coronary artery with other forms of angina pectoris (principal) | CPT/HCPCS: 80048 ==

== ENCOUNTER 2020-06-11 10:36 | Day surgery (SDC) | payer MEDICARE, OTHER, SELFPAY ==
[2020-06-08 11:25] VITALS: BMI 33.5
--- NOTE | 2020-06-11 | SCC_ITS ---
Procedure Done: 1. Cystoscopy, left ureteral stent exchange 2. Left ureteroscopy 10.5 seconds of fluoroscopic guidance, for a cumulative dose of 5.48 mGy, was provided to Dr. Puckett by the radiology department. C-arm images of the abdomen were saved for the patient's permanent record. [facility]
[2020-06-11 10:53] VITALS: BP 151/82; PULSE 52; RESP 18; TEMP 36.1
[2020-06-11] MEDS: sodium chloride 0.9% 1,000 ML 30 ML IV (11:07)
--- NOTE | 2020-06-11 11:12 | SC_ITS ---
WS: [id number] C-arm FL for Urology REASON FOR EXAM: Left ureteral stent exchange FINDINGS: Abdomen film on 06/04/2020 demonstrates ureteral stent related to the left kidney. The current examination demonstrates a wire in the same location as the previous ureteral stent. SC/C-arm FL for Urology IMPRESSION: Guidewire in position for left ureteral stent placement.
--- NOTE | 2020-06-11 11:40 | ANES.PREANE2 ---
Pre-Anesthetic Assessment Pre-Anesthetic Assessment: Height/Weight: Height 1.8 m Weight 108.862 kg Temp Pulse Resp BP 97 F L 52 L 18 151/82 06/11/20 10:53 06/11/20 10:53 06/11/20 10:53 06/11/20 10:53 Preop Diagnosis: Chronic left ureteral obstruction with indwelling stent Proposed Procedure: Operation Date: 06/11/20 14:05 Proposed Procedures p Cystoscopy 65121 N13.5(Not Applicable) - Bill Puckett MD s Ureteral Stent Exchange(Left) - Bill Puckett MD Familial anesthetic complications: None Was Beta Anna taken within 24 hours: Yes Last intake: Intake Last Liquid Date 06/11/20 Last Liquid Time 07:00 Last Solid Date 06/10/20 Last Solid Time 19:00 Social: Social History: Alcohol (2 vodka's a day - denies hx of withdrawal symptoms) and Tobacco Exam: Pre-Anes Outpt Exam: alert, oriented x 3, clear to auscultation bilaterally and regular rate & rhythm Airway: Cervical ROM: WNL MP: 3 Dentition: Full CV/HEM: CV/HEM: CAD (stent 15 years ago) and HTN Musc/skel: Comments: metasttic cancer to bone Anesthetic Plan: ASA status: 3 Anesthesia: General Meds/Allergies Current Medications: Current Medications Generic Name Dose Route Start Last Admin Trade Name Freq PRN Reason Stop Dose Admin Sodium Chloride 1,000 mls @ 30 ml s/hr 06/11/20 10:45 06/11/20 11:07 Sodium Chloride 0.9% IV 06/12/20 10:44 30 mls/hr .Q24H CEM Administration PFSH Anesthesia PFSH: Medical History Acquired spondylolisthesis Coronary artery disease Extrinsic ureteral obstruction Intervertebral disc disorders with radiculopathy, 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 Prostate cancer metastatic to bone Retained ureteral stent Sacral mass Surgical History History of radical prostatectomy History of ureter stent left, 01/20/2019 Hx of heart artery stent Family History Mother Cancer Father Stroke Other Hypertension Social History Smoking and tobacco status: current every day smoker Alcohol intake: current Alcohol intake frequency: holidays/special occasions only Adopted: No Caregiver/support person: No Lives independently: No Household members: spouse Marital status: service: No Current occupational status: retired History of recent travel: No Current gender identity: Male Data Anesthesia Cardiac Studies: No Data to Display
--- NOTE | 2020-06-11 11:56 | P.HPUD_ITS ---
Surgery/Procedure H&P Update DATE OF PROCEDURE: June 11, 2020 DATE H&P PERFORMED: 05/29/20 H&P UPDATE INFORMATION: I have reviewed H&P completed within last 30 days, I have examined patient prior to procedure, No changes to prior documentation and H&P is in [facility] EMR on date indicated PREOP DIAGNOSIS: Chronic left ureteral obstruction with indwelling stent PLANNED PROCEDURE: Operation Date: 06/11/20 14:05 Proposed Procedures p Cystoscopy 88672 N13.5(Not Applicable) - Bill Puckett MD s Ureteral Stent Exchange(Left) - Bill Puckett MD
[2020-06-11 11:57] LABS: Chol HDL Ratio 5.22 mg/dL (1.0-5.00); Cholesterol 188 mg/dL (0-200); HDL Cholesterol 36 mg/dL (60-100); LDL Cholesterol Calculated 104 mg/dL (50-129); LDL HDL Ratio 2.89 RATIO (0.00-3.22); Triglycerides 242 mg/dL (0-150)
--- NOTE | 2020-06-11 12:03 | PM.OP ---
Operative Report Date of procedure: June 11, 2020 Pre-op Diagnosis: Chronic left ureteral obstruction with indwelling stent Post-op diagnosis: same Procedure Done: 1. Cystoscopy, left ureteral stent exchange 2. Left ureteroscopy Pathology: none sent Surgeon: Italo Anesthesia: MAC Estimated blood loss: Minimal Complications: None Findings: 1. Stent was changed easily, minimal encrustation 2. There appeared to be some increased papillary type appearance to the tissue just inside the ureteral orifice with examination via cystoscopy. The ureteroscope was passed prior to replacement of the stent that showed this to be just more inflammatory looking but not distinctly neoplastic. Condition: stable Disposition: PACU Brief History: Mr. Nash is a delightful 79-year-old white male with a history of recurrent prostate cancer who was discovered to have a left distal ureteral obstruction worrisome initially for possible urothelial neoplastic process but biopsies were equivocal. Multiple ureteroscopy's failed to show a distinct lesion. It was unclear whether this was an invasive, locally invasive prostate cancer process. 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 Due now for stent change in back for that procedure on outpatient basis. Procedure: After routine preoperative evaluation examination and obtaining of informed consent he was taken to the operating suite on 06/11/2020 where general anesthesia was administered without difficulty after appropriate timeout was performed, SCDs confirmed to be functioning, preoperative antibiotics administered, beta-laura protocol confirmed. Prepped and draped in usual sterile fashion in dorsolithotomy position pain careful attention to avoiding pressure points. 21 Faroese cystoscope with 30 degree lens was introduced into urethral meatus and advanced into the bladder under videoscopy. Bladder was systematically examined. Stent was in good position. There was no detectable encrustation. Guidewire was placed next to the stent and passed up into the kidney and the stent was then removed with grasping forceps. Inspection of the orifice revealed some tissue that had not been identified previously it appeared papillary in nature. For that reason a 7.5 Faroese offset semirigid ureteroscope was advanced into the distal ureter and this area was carefully inspected but it appeared to be more inflammatory than actually neoplastic. The scope was passed into the ureter that was proximal to this point and dilated but no other lesions were seen. Cystoscope then backloaded over the guidewire and a 7 Faroese by 26 cm double-pigtail stent was advanced over the guidewire through the cystoscope into appropriate position as confirmed via fluoroscopy and cystoscopy. Confirmed to be draining. Bladder drained procedure completed. Tolerated the procedure well without complications and was awakened in the operating room and returned to the recovery room in stable condition. PLANS: 1. Follow-up in roughly 6 months with [facility] to schedule stent change. 2. Reviewed findings with his .
[2020-06-11 12:41] VITALS: BP 126/63; PULSE 54; RESP 18; TEMP 36.1; O2SAT 94
[2020-06-11 13:00] VITALS: BP 126/68; PULSE 50; RESP 18; O2SAT 96
--- NOTE | 2020-06-11 15:51 | ANE.PACU2 ---
Inpatient post-anesthesia follow up: Airway intact: Yes Vital signs: Temperature 97 F Pulse Rate 50 Respiratory Rate 18 Blood Pressure 126/68 Pulse Oximetry 96 Oxygen Delivery Me thod Room Air Oxygen Flow Rate Fraction of Inspir ed Oxygen Hydration adequate: Yes Nausea and vomiting: No Pain level: 2 Mental status: Baseline
== END 2020-06-11 13:35 | disposition home or self-care (01) ==
PROVIDERS: Nurse Practitioner Family; PCP Family Medicine; Visit Provider Urology
PROC: 0TJB8ZZ Inspection of Bladder, Via Natural or Artificial Opening Endoscopic (ICD-10-PCS; CPT 52000; principal; 2020-06-11 12:00)
PROC: (CPT 52332; 2020-06-11 12:00)
DX: N20.1 Calculus of ureter (principal); I25.10 Atherosclerotic heart disease of native coronary artery without angina pectoris; Z95.5 Presence of coronary angioplasty implant and graft; I10 Essential (primary) hypertension; Z85.46 Personal history of malignant neoplasm of prostate; F17.210 Nicotine dependence, cigarettes, uncomplicated; Z79.82 Long term (current) use of aspirin
CPT/HCPCS: 52332; 52351; 12345; 76000; 80061; C2625; J0690; J2405; J2704; J3010; J7030

== ENCOUNTER 2020-07-02 15:05 | Outpatient (CLI) | payer MEDICARE, OTHER, SELFPAY ==
[2020-07-02 16:56] LABS: Basophils % 0.4 %; Eosinophils # 0.4 10^3/uL (0.0-0.8); Eosinophils % 5.1 %; Hematocrit 43.5 % (42.0-52.0); Hemoglobin 13.8 g/dL (11.7-16.6); Lymphocytes # 2.1 10^3/uL (0.8-4.8); Lymphocytes % 30.2 %; Mean Corpuscular HGB Conc 31.7 g/dL (30.0-36.0); Mean Corpuscular Hemoglobin 34.1 pg (28.0-34.0); Mean Corpuscular Volume 107.4 fL (80-94); Mean Platelet Volume 12.2 fL (7.4-10.4); Monocytes # 0.9 10^3/uL (0.2-0.9); Monocytes % 12.3 %; Neutrophils # 3.64 10^3/uL (1.8-7.7); Neutrophils % 51.9 %; Nucleated Red Blood Cells % 0 %; Platelet Count 213 10^3/cmm (130-400); Red Blood Count 4.05 10^6/uL (4.1-5.3); Red Cell Distribution Width 13.1 % (12.1-15.1)
[2020-07-02 17:23] LABS: Alanine Aminotransferase 10 U/L (0-41); Albumin Level 4.1 g/dL (3.5-5.2); Alkaline Phosphatase 65 IU/L (40-130); Anion Gap 16.3 (5-19); Aspartate Amino Transferase 14 U/L (0-40); Blood Urea Nitrogen 23 mg/dL (8-23); Calcium 9.1 mg/dL (8.5-10.5); Carbon Dioxide 25 mmol/L (22-29); Chloride 104 mmol/L (98-107); Globulin 2.5 g/dL (1.3-4.6); Glucose 87 mg/dL (65-115); Osmolality Calculated 295 mOsm/kg (285-295); Potassium 4.3 mmol/L (3.5-5.1); Sodium 141 mmol/L (136-145); Total Bilirubin 0.4 mg/dL (0.15-1.2); Total Protein 6.6 g/dL (6.6-8.7)
[2020-07-02 21:07] LABS: Prostate Specific Antigen 0.052 ng/mL (0-4); Testosterone Total 2.5 ng/dL (193-740)
== END 2020-07-02 15:06 | disposition home or self-care (01) ==
LOC: ONCMED 17:29
PROVIDERS: PCP Family Medicine; Visit Provider Nurse Practitioner
DX: C61 Malignant neoplasm of prostate (principal); C79.51 Secondary malignant neoplasm of bone
CPT/HCPCS: 80053; 84153; 84403; 85025

== ENCOUNTER 2020-07-04 06:09 | Outpatient (CLI) | payer MEDICARE, OTHER, SELFPAY ==
[2020-07-04] MEDS: goserelin acetate 10.8 mg Implant IM (15:28)
[2020-07-04] MEDS: lidocaine 1% INJ 20 mL INJECTION (15:28)
[2020-07-04] MEDS: denosumab 60 mg SDV SUBCUT (15:30)
--- NOTE | 2020-07-10 21:26 | ONC FU_ITS ---
[facility] Patient Note Patient: Mack Nash Unit #: [id number]: 1940 Dictated By: Sharda FowlerDate of Visit: Jul 04, 2020 Onc MED Follow-Up/Prog Note Chief Complaint: Prostate cancer. History of Present Illness: Mr Nash is 79 year-old man with the stage IV prostatic adenocarcinoma, metastatic to bone. He has a history of coronary artery disease, smoking and alcohol consumption. He was diagnosed with an early stage intermediate risk prostatic adenocarcinoma in 1999, Constantino score 5, PSA 20.6. He underwent a primary treatment with radical retropubic prostatectomy. Reportedly, the patient had recurrent detectable PSA within one year. In October of 2012 PSA measured 10.7, with further increase to 37.7 in October 2013 and further increase to 81.2 in May 2014. The bone scan on 05/08/2014 showed increased activity in the right superior ramus, right acetabulum as well as right femoral neck. The patient began treatment with Zoladex and 2 weeks therapy with Casodex on 05/08/2014. The patient was first seen by Dr. Shah on 07/03/2014. He had no pain associated with the right leg, hip, or pelvis. CT of the chest/ abdomen/pelvis on 07/04/2014 showed no evidence of distal metastatic disease. His DEXA scan on 07/10/2014 was normal. An MRI on 08/29/2014 showed a right hip lesion extending to the cortex. He completed right hip radiation treatment on 10/13/2014. He established care with orthopedic surgeon at [facility]. His PSA reached a walter of 0.25 ng/mL on 08/27/2015. A repeat PSA in November was up just slightly, to 0.32 ng/mL. By 05/28/2016 his PSA had increased to 0.81 ng/mL. Restaging CT scans of the chest, abdomen, and pelvis on 06/17/2016 showed stable right lower lobe subpleural nodules since 07/04/2014 and unlikely to represent metastatic lesions. There were no acute findings of the chest and no significant change from 07/04/2014. There were stable nonenlarged retroperitoneal para-adrenal lymph nodes noted. There was essentially near complete resolution of prior blastic metastatic disease involving right proximal femur, acetabulum, and superior pubic ramus. Bone scan performed 06/17/2016 showed stable findings. There were no new areas of increased uptake to suggest progression of metastatic disease. He continued androgen deprivation. During subsequent follow-up his PSA level continued to increase gradually. As of 03/27/2017 it was up to 4.62 ng/mL. Restaging CT scans of the chest, abdomen, and pelvis on 06/23/2017 showed no evidence of neoplastic process within the chest and no evidence of metastatic disease in the abdomen/pelvis or bony structures. There were extensive degenerative changes in the spine, and there was evidence of L4 anterior superior compression fracture compared to the study from 06/24/2016. Bone scan showed eccentric increased activity in lumbar spine felt to be most likely degenerative. The L4 vertebral body compression fracture was again noted. There was no evidence of osseous metastatic disease. A subsequent DEXA scan on 07/10/2017 showed a decrease in the bone mineral density in both hips compared to the prior study from July 2014. On his follow-up visit in July 2017 there was just a slight further increase in the PSA level, to 5.93 ng/mL, and as of 09/23/2017 it was up to 8.62 ng/mL. He had no evidence of symptomatic metastatic disease, and he just continued androgen deprivation with Zoladex. As of his follow-up visit on 12/16/2017 there was further increase in the PSA level to 12.90 ng/mL. He was reporting increased back pain with radiation to the left leg. He continued androgen deprivation therapy with Zoladex, but he also had further evaluation with bone scan and subsequently with CT of the lumbar spine. There was no evidence of metastatic disease on the bone scan. He lumbar spine CT did show an L4 compression fracture estimated at 30% without retropulsion. There were significant degenerative changes with moderate central canal stenosis at L2-3 and at L3-4 and there was moderate to severe foraminal stenosis at multiple sites. As of 03/18/2018 the PSA had further increased to 13.90 ng/mL. In the absence of symptomatic disease progression, he continued androgen deprivation with Zoladex. His other medical illnesses include hypertension, dyslipidemia, and coronary artery disease. He does have history of smoking, but has cut down to less than 1 pack of cigarettes daily. INTERIM HISTORY: By December 2018 the PSA had further increased to 20.93 ng/mL, and at that point he was having increasing pain in the left lower back and left leg. MRI of the lumbar spine on 12/23/2018 showed significant degenerative changes which included moderate central canal stenosis and foraminal narrowing at multiple levels. Also noted was moderate left hydronephrosis with ureterectasis extending into the pelvis.further evaluation with CT abdomen/pelvis on 01/03/2019 showed evidence of left ureteropelvic junction mass causing left ureterectasis and hydronephrosis. A left side presacral elongated soft tissue mass was noted, possibly of sacral nerve root origin, with the reported differential including schwannoma, neurofibroma, or perineural spread of neoplasm. He was referred to Dr. Puckett, and on 01/20/2019 he underwent cystoscopy and left ureteroscopy with biopsy of ureteral mass and with placement of left ureteral stent. Pathology showed fibrous tissue with chronic inflammation. There was no malignancy identified. As he appeared to be showing significant disease progression, he then began treatment with enzalutamide 160 mg daily in February 2019. He did show significant biochemical response with repeat PSA on 03/21/2019 decreasing to 3.95 ng/mL. He continued androgen deprivation with Zoladex together with enzalutamide 160 mg daily, which he appeared to be tolerating well. On 06/13/2019 he underwent cystoscopy with replacement of his left ureteral stent. The distal ureter was noted to have significant inflammatory changes, but no distinct papillary tumors were noted. As of his follow-up visit on 06/20/2019 there was further decrease in the PSA level to 0.36 ng/mL, and has a 09/30/2019 it was down to 0.17 ng/mL. Mr. Nash is here today for follow-up. He is due for Zoladex. He continues the Xtandi as well. He has tolerated it well overall. He really has no new concerns today other than he continues to have generalized weakness. He is utilizing a wheelchair or a walker for ambulation at home due to leg weakness . He also has persistent back pain for which she had been following with Dr. Campos [place] but has not had follow-up since Dr. Campos's departure last spring. Per Geri has last office note from 09/27/2019 he has a history of acquired spondylolisthesis, intervertebral disc disorders with radial apathy, lumbosacral region; lumbar stenosis with neurogenic claudication he had a CT of the lumbar spine on 09/06/2019 which reported a remote L4 compression fracture by 30% with no change multilevel advanced degenerative disc disease and vacuum disc phenomenon throughout the lumbar spine. Severe right foraminal stenosis due to combination of factors including a disc protrusion at L5-S1. Moderate to severe bilateral foraminal stenosis at L3-L4 and L4-L5. L5 pars defect without anterior listhesis. No significant progression of disease since 02/04/2019. He recently had chronic left ureteral obstruction with indwelling stent with cystoscopy left ureteral stent exchange, left ureteroscopy per Dr. Puckett on 06/11/2020. Per Dr. Puckett's note the distal ureter was carefully inspected but it appeared to be more inflammatory than actually neoplastic . He also underwent coronary angiogram on 05/29/2020 which revealed nonobstructive coronary artery disease, no intervention was performed. He is CAD is managed by medical management with lipid therapy, aspirin, P2 Y12 inhibitors, beta-blockers and MIKE/ARB. He did have echocardiogram on 04/05/2020 which reported ejection fraction of 55% with a grade 1 of 4 diastolic dysfunction no regional wall motion maladies were noted and there were no pericardial effusions noted. There were no significant valve abnormalities. Mr. Nash denies any new pain. He continues to have leg weakness and back pain and is requesting follow-up with a neurosurgeon. We did discuss referral to Dr. Xiao at [facility] orthopedics for follow-up of his known spondylolisthesis as noted above. He wishes to pursue this referral. He is also requesting referral for in-home physical therapy for strengthening. He denies any urinary problems since his stent replacement. He has had no hematuria. He denies any new shortness of breath orthopnea. He denies any palpitations. He denies any syncope or near syncope. He states his heart rate has improved as well since his recent follow-up with cardiology. He denies any problems with his Prolia or Zoladex last infusions. He is due for both today. He is accompanied by his he agrees with the above interim history. His ECOG is 3. Past Medical History: Coronary artery disease Hypertension Past Surgical History: Hrt stent 2006 Knee surgery Prostatectomy Stent placment in the ureter in 2019 Allergies: No Known Allergies. Medications: AmLODIPine Besylate 1 (5 mg) Tablet Oral daily Aspirin 1 (81 mg) Tablet Oral daily Atorvastatin Calcium (10 mg) Tablet Oral daily Carvedilol 1 Tablet (of 6.25 mg) Oral b.i.d. Enzalutamide 4 Capsule (of 40 mg) Oral daily gabapentin 1 Capsule (of 300 mg) Tablet t.i.d. Garlic 2 Capsule Oral daily Hydrocodone-Acetaminophen 1 Tablet (of 5-325 mg) Oral q 8 hours PRN Lisinopril 1 (10 mg) Tablet Oral daily Plavix 1 (75 mg) Tablet Oral daily Stool Softener 1 Tablet (of 100 mg) Oral daily Triamterene-HCTZ 0.5 (37.5-25 mg) Tablet Oral daily Venlafaxine HCl ER 1 Capsule (of 75 mg) Capsule SR 24 HR Oral daily Family History: Mr. Nash's mother at age 78. Mr. Nash's father at age 65. Mother breast cancer age: Sister breast cancer age:. Social History: Mr. Nash is and he is retired. He is a daily smoker who has smoked 0.5 packs/day for 61 years. He is an active drinker.He consumes 1 drink/day 7 days/week. Mr. Nash reports contact with hazardous material. Mr. Nash reports the following support systems: lives with spouse, significant other, family, or friends, lives in own house, supportive family/friends willing to assist with needs, and adequate transportation available for expected visits. His diet consists of regular meals. He indicates his activity level as: daily activities. Patient is currently smoking and plans on not quitiing. Pt states that he drinks 6 oz whiskey daily. Review Of Symptoms: Constitutional Denies fevers, chills, excessive fatigue or weight loss. He states he has had persistent generalized leg weakness and has no strength . He is trying to do some ambulation with his walker at home but tires easily. Allergic/Immunologic No reactions. Eyes Denies significant visual changes. No diplopia. No amaurosis. ENMT Denies changes in hearing, sore throat, mouth sores, difficulty or changes in swallowing ability, and/or sinus drainage. Endocrine No diabetes, thyroid disease or hormone replacement. Denies hot flashes or night sweats. Hematologic/Lymphatic The patient denies any tender or palpable lymph nodes. Easy bruising-chronic. Respiratory Denies chest pain, cough or hemoptysis. Denies orthopnea. uses c-pap at night. Cardiovascular Denies anginal chest pain, palpitations or orthopnea. Gastrointestinal Denies nausea, vomiting, diarrhea, GI bleeding, or constipation. Denies change in bowel habits and/or stool color, no heartburn or early satiety. Genitourinary (M) Denies hematuria, dysuria, increased frequency, urgency, hesitancy or incontinence. Musculoskeletal Denies swelling or redness. No decreased range of motion. Generalized arthritis. Integumentary Denies chronic rashes, inflammation, ulcerations or skin changes. Neurologic Denies headache, blurred vision, and no areas of numbness. No sensory problems. presents in wheelchair today. Psychiatric Denies insomnia, depression, mika or mood swings. Vital Signs: Performed on Jul 04, 2020 14:29 Height - 72.00 in Weight - 240.6 lbs (HIGH) BSA - 2.30 sq.m BMI - 32.63 (HIGH) Temperature - 97.5 F (LOW) Pulse - 63 /min Respiration - 17 /min BP - 146/60 mm(hg) (HIGH) O2 Sat - 93 % (LOW) Pain - 4,3 - Capable of only limited self-care, confined to bed or chair more than 50% of waking hours. (ECOG) Physical Examination: Constitutional Alert, oriented, no acute distress. Skin pink, warm and dry. Head Normocephalic; atraumatic. Eyes Conjunctivae and sclerae are clear and without icterus. Pupils are reactive and equal. ENMT Sinuses are nontender. No oral exudates, ulcers, masses, thrush or mucositis. Oropharynx clear. Tongue normal. Neck Supple without masses or thyromegaly. No jugular venous distension. Hematologic/Lymphatic No petechiae or purpura. No tender or palpable lymph nodes in the cervical, supraclavicular, or axillary area. Respiratory Lungs are clear to auscultation without rhonchi or wheezing. Cardiovascular Regular rate and rhythm of heart without murmurs,clicks, gallops or rubs. Abdomen Non-tender, non-distended, no masses, ascites. No pulsatile masses. Back/Spine Non-tender to palpation. Extremities No visible deformities, no cyanosis, clubbing or edema. Musculoskeletal No tenderness or swelling, upper extremities have normal range of motion but limited ROM with lower extremity weakness noted bilaterally. Integumentary No rashes or lesions. Neurologic No sensory or motor deficits, normal cerebellar function. Psychiatric Alert and oriented times three. Coherent speech. Verbalizes understanding of our discussions today. Laboratory:Test performed on Apr 04, 2020 10:51 Creatinine 5.0 mg/dL Cr Clearance (Est) 19.45 mL/min Test performed on Apr 04, 2020 10:32 TSH 2.08 uIU/mL Vitamin B12 599 pg/mL Vitamin D (25-Hydroxy), Total 69 ng/mL Test performed on Mar 30, 2020 08:20 Sodium 134 mmol/L Testosterone, Total 9.4 ng/dL Potassium 4.7 mmol/L Chloride 100 mmol/L CO2 23 mmol/L Anion Gap 15.7 BUN 19 mg/dL Glucose 105 mg/dL Osmolality - Calculated 281 mOsm/kg Calcium 9.5 mg/dL Protein, Total 6.9 g/dL Albumin 3.8 g/dL Globulin 3.1 g/dL Bilirubin, Total 0.5 mg/dL ALT (SGPT) 11 U/L AST (SGOT) 17 U/L Alkaline Phosphatase 54 IU/L WBC 6.1 10 3/uL RBC 4.11 10 6/uL HGB 14.0 g/dL HCT 43.4 % MCV 105.6 fL MCH 34.1 pg MCHC 32.3 g/dL RDW 13.2 % Platelet Count 204 10 3/cmm MPV 12.4 fL Neutrophils 3.54 10 3/uL Lymphocytes 1.6 10 3/uL Monocytes 0.7 10 3/uL Eosinophils 0.2 10 3/uL Basophils 0.0 10 3/uL Neutrophil % 58.2 % Lymphocyte % 25.5 % Monocyte % 11.7 % Eosinophil % 3.9 % Basophils % 0.5 % NRBC % 0 % PSA 0.065 ng/mL Impression: 1. Patient with stage Constantino 5 prostate cancer, early stage at initial diagnosis in 1999 and treated with radical prostatectomy. 2. He presented with castration sensitive stage IV, metastatic disease in the bone in May of 2014 with PSA 81.2. Androgen deprivation therapy was initiated on 05/08/14 with Zoladex and 2 weeks of bicalutamide. He has had a good clinical response with PSA walter of 0.25 ng/mL on 08/27/2015. His other medical illnesses include: 3. Hypertension. 4. Dyslipidemia. 5. Coronary artery disease. During the past year there has been a gradual rise in his PSA level. There were no obvious sites of metastatic involvement noted on his restaging CT scans or bone scan in June 2017. There was evidence of a new vertebral compression fracture at L4, but that did not appear to be overtly symptomatic. A subsequent DEXA scan on 07/10/2017 showed a decrease in the bone mineral density in both hips compared to the prior study from July 2014. As of his follow-up visit in July 2017, his PSA level had increased just slightly, to 5.93 ng/mL. It then continued to increase gradually, to 8.62 ng/mL in September and to 12.90 ng/mL in December. At that point he had developed significant back pain. He continued androgen deprivation therapy with Zoladex, but he did have further evaluation with bone scan and subsequently with CT of the lumbar spine. Based on those results, it appeared that his pain was due to underlying degenerative disease, as there was no obvious metastatic involvement noted. He initially did show some improvement in his lower back/hip pain with physical therapy. However, it had subsequently worsened, and as of his follow-up visit in December 2018 was further increase in the PSA level to 20.93 ng/mL. MRI of the lumbar spine did show significant degenerative changes, but that study also showed evidence of left hydronephrosis. Further evaluation with CT abdomen/pelvison 01/03/2019 showed evidence of left ureteropelvic junction mass with associated left ureterectasis and hydronephrosis. Also noted was a left side presacral elongated soft tissue mass felt to be possibly of sacral nerve root origin. On 01/20/2019 he underwent cystoscopy and left ureteroscopy with biopsy of left ureteral mass and with placement of left ureteral stent. The biopsy showed no evidence of malignancy. As of February 2019 there was further increase in the PSA level to 24.56 ng/mL. As he did appeared to be showing symptomatic disease progression, he then started treatment with enzalutamide 160 mg daily. He reported significant improvement in his left lower back pain following placement of the ureteral stent. He did show a significant biochemical response to the enzalutamide with repeat PSA on 03/21/2019 decreasing to 3.95 ng/mL. At that point he appeared to be tolerating it well, and he continued the enzalutamide together with Zoladex. On 06/13/2019 he underwent repeat cystoscopy and replacement of a left ureteral stent. He again noted improvement in lower back pain following the procedure. During subsequent follow-up his clinical status has been stable. He has continued to have limited activity, but he has been tolerating his treatment very well, and there has been gradual decline in his PSA level. Mr. Nash underwent replacement ureteral stent per Dr. Puckett on 06/11/2020. He is also had follow-up with cardiology for history of coronary artery disease with stent to the LAD, hypertension, hyperlipidemia he underwent coronary angiography on 05/29/2020 which revealed nonobstructive coronary artery disease with no intervention performed. He continues with Xtandi/Zoladex for his prostate cancer and Prolia for bone health. Plan: 1. Proceed with Zoladex 10.8 mg by subcutaneous injection. 2. He continues enzalutamide 160 mg daily. 3. Labs from 07/02/2020 were reviewed in detail discussed with . Mrs. Nash and a copy was given to them. WBC 7.0, hemoglobin 13.8, platelets 213,000 ANC is 3640. Potassium 4.3 random glucose 87 creatinine 1.0 calcium 9.1 LFTs are normal testosterone is 2.5 and PSA is 0.052. 4. He is due for Prolia for bone health today as well. 5. He will be referred to Dr. Xiao at [facility] for further evaluation/follow-up of his spondylolisthesis; lumbar stenosis with neurogenic claudication; intervertebral disc disorders with radiography, lumbar sacral region; degenerative disc disease in his back. 6. I have asked for home health referral for physical therapy evaluation and treat due to persistent leg weakness and high risk for falls. He is currently utilizing a standard walker or wheelchair for mobility assistance especially with activities related to daily living 7. In regards to his prostate cancer we will see him back in 3 months with CBC CMP testosterone and PSA. He will be due for Zoladex at that time. He continues the Xtandi. 8. and Mrs. Nash have been encouraged to contact us in the interim should questions or problems arise. Signed By: Sharda Fowler-, AOCNP Paul Francisco MD <<Signature on File>>
== END 2020-07-04 06:10 | disposition home or self-care (01) ==
LOC: ONCMED 06:11
PROVIDERS: PCP Family Medicine; Visit Provider Nurse Practitioner
DX: C61 Malignant neoplasm of prostate (principal); M48.062 Spinal stenosis, lumbar region with neurogenic claudication; M43.16 Spondylolisthesis, lumbar region; M51.36 Other intervertebral disc degeneration, lumbar region; I10 Essential (primary) hypertension; E78.5 Hyperlipidemia, unspecified; I25.10 Atherosclerotic heart disease of native coronary artery without angina pectoris; Z79.818 Long term (current) use of other agents affecting estrogen receptors and estrogen levels; Z79.899 Other long term (current) drug therapy; Z95.5 Presence of coronary angioplasty implant and graft; Z91.81 History of falling; Z90.79 Acquired absence of other genital organ(s)
CPT/HCPCS: 96372; 96402; 99214; J0897; J9202

== ENCOUNTER → 2020-07-24 11:05 | Outpatient (BNVA) | payer MEDICARE, OTHER, SELFPAY | PROVIDERS: PCP Family Medicine; Referring Provider Internal Medicine Medical Oncology; Visit Provider Orthopaedic Surgery | DX: M48.062 Spinal stenosis, lumbar region with neurogenic claudication (principal); M51.36 Other intervertebral disc degeneration, lumbar region; S32.040A Wedge compression fracture of fourth lumbar vertebra, initial encounter for closed fracture | CPT/HCPCS: 72114 ==

== ENCOUNTER 2020-07-31 11:21 | Outpatient (CLI) | payer MEDICARE, OTHER, SELFPAY ==
--- NOTE | 2020-07-31 11:45 | MR_ITS ---
WS: [id number] MRI LUMBAR SPINE NONCONTRAST TECHNIQUE: Sagittal T1, T2 and STIR imaging. Axial T1 and T2 imaging. CLINICAL INFORMATION: M48.062 - Spinal stenosis, lumbar region with neurogenic claudication COMPARISON: MRI 8 2018 FINDINGS: Mild lumbar curve. No acute compression. Chronic compression of the L4 vertebral body superior endpla te measuring approximately 30% is unchanged since 2019. Trace anterolisthesis L5 on S1. L1-L2: Mild annular bulging. Mild right and no significant left foraminal narrowing. Mild facet arthr opathy. L2-L3: Mild disc bulging with slight effacement of the ventral thecal sac. Moderate left and mild rig ht foraminal narrowing. Moderate facet arthropathy. Moderate central canal stenosis with prominent do rsal epidural fat. L3-L4: Mild disc bulging with slight effacement of the ventral thecal sac. Moderate central canal itzel nosis with prominent dorsal epidural fat. Moderate facet arthropathy. Moderate left and mild to moder ate right foraminal narrowing. L4-L5: Mild disc bulging with slight effacement of the ventral thecal sac. Moderate right and no sign ificant left foraminal narrowing. Moderate facet arthropathy with small facet effusions. L5-S1: Slight anterolisthesis L5 on S1 with osteophytic ridging. Slight effacement of ventral thecal sac. Moderate right and mild left bony foraminal narrowing. Mild to moderate facet arthropathy. Partially visualized 10 mm right renal cyst. MR/MR lumbar spine wo con* [id number] IMPRESSION: 1. Mild lumbar curve. No acute compression. Chronic compression superior endpl ate L4 is unchanged since 2019. 2. Moderate central canal stenosis L2-L3 and L3-L4 mainly due to prominent judy keagan epidural fat. This is unchanged from previous. Circumferential narrowing of the thecal sac. 3. Moderate bony foraminal narrowing worse at left L2-3, left L3-4, right L4-5 , and right L5-S1. 4. Stable slight anterolisthesis L5 on S1. 5. Moderate facet arthropathy L3-L5.
== END 2020-07-31 11:22 | disposition home or self-care (01) ==
PROVIDERS: PCP Family Medicine; Visit Provider Orthopaedic Surgery
DX: M48.062 Spinal stenosis, lumbar region with neurogenic claudication (principal); M47.816 Spondylosis without myelopathy or radiculopathy, lumbar region; M48.061 Spinal stenosis, lumbar region without neurogenic claudication
CPT/HCPCS: 72148

== ENCOUNTER → 2020-09-13 12:38 | Outpatient (BNVA) | payer MEDICARE, OTHER, SELFPAY | PROVIDERS: PCP Family Medicine; Referring Provider Orthopaedic Surgery; Visit Provider Anesthesiology Pain Medicine | DX: M54.42 Lumbago with sciatica, left side (principal); M48.062 Spinal stenosis, lumbar region with neurogenic claudication; M47.816 Spondylosis without myelopathy or radiculopathy, lumbar region; M46.00 Spinal enthesopathy, site unspecified; M54.16 Radiculopathy, lumbar region; M51.36 Other intervertebral disc degeneration, lumbar region; C61 Malignant neoplasm of prostate; F17.210 Nicotine dependence, cigarettes, uncomplicated; Z79.891 Long term (current) use of opiate analgesic | CPT/HCPCS: 99205 ==

== ENCOUNTER → 2020-09-25 13:38 | Outpatient (BNVA) | payer MEDICARE, OTHER, SELFPAY | PROVIDERS: PCP Family Medicine; Visit Provider Anesthesiology Pain Medicine | DX: M54.16 Radiculopathy, lumbar region (principal); M48.062 Spinal stenosis, lumbar region with neurogenic claudication; Z79.891 Long term (current) use of opiate analgesic; F17.210 Nicotine dependence, cigarettes, uncomplicated | CPT/HCPCS: 64483; 64484; J1100; J3490 ==

== ENCOUNTER 2020-09-27 10:47 | Outpatient (CLI) | payer MEDICARE, OTHER, SELFPAY ==
[2020-09-27 11:57] LABS: Basophils % 0.4 %; Eosinophils # 0.3 10^3/uL (0.0-0.8); Eosinophils % 3.2 %; Hematocrit 44.2 % (42.0-52.0); Hemoglobin 14.5 g/dL (11.7-16.6); Lymphocytes # 2.2 10^3/uL (0.8-4.8); Lymphocytes % 27.2 %; Mean Corpuscular HGB Conc 32.8 g/dL (30.0-36.0); Mean Corpuscular Hemoglobin 34.4 pg (28.0-34.0); Mean Corpuscular Volume 104.7 fL (80-94); Mean Platelet Volume 12.2 fL (7.4-10.4); Monocytes # 0.5 10^3/uL (0.2-0.9); Monocytes % 6.2 %; Neutrophils # 5.07 10^3/uL (1.8-7.7); Neutrophils % 62.9 %; Nucleated Red Blood Cells % 0 %; Platelet Count 229 10^3/cmm (130-400); Red Blood Count 4.22 10^6/uL (4.1-5.3); White Blood Count 8.1 10^3/uL (4.0-10.0)
[2020-09-27 12:30] LABS: Prostate Specific Antigen 0.048 ng/mL (0-4)
[2020-09-27 12:41] LABS: Alanine Aminotransferase 14 U/L (0-41); Alkaline Phosphatase 57 IU/L (40-130); Anion Gap 14.3 (5-19); Aspartate Amino Transferase 15 U/L (0-40); Blood Urea Nitrogen 20 mg/dL (8-23); Calcium 8.9 mg/dL (8.5-10.5); Carbon Dioxide 26 mmol/L (22-29); Chloride 99 mmol/L (98-107); Globulin 3.2 g/dL (1.3-4.6); Glucose 109 mg/dL (65-115); Osmolality Calculated 283 mOsm/kg (285-295); Potassium 4.3 mmol/L (3.5-5.1); Sodium 135 mmol/L (136-145); Total Bilirubin 0.4 mg/dL (0.15-1.2); Total Protein 7.2 g/dL (6.6-8.7)
== END 2020-09-27 10:48 | disposition home or self-care (01) ==
PROVIDERS: PCP Family Medicine; Visit Provider Nurse Practitioner
DX: C61 Malignant neoplasm of prostate (principal); Z51.81 Encounter for therapeutic drug level monitoring; Z79.899 Other long term (current) drug therapy
CPT/HCPCS: 80053; 84153; 85025

== ENCOUNTER 2020-10-02 12:44 | Outpatient (CLI) | payer MEDICARE, OTHER, SELFPAY ==
[2020-10-02] MEDS: lidocaine 1% INJ 20 mL INJECTION (13:15)
[2020-10-02] MEDS: goserelin acetate 10.8 mg Implant IM (13:50)
--- NOTE | 2020-10-03 07:46 | ONC FU_ITS ---
Dr. Francisco Patient Follow-Up Note Patient: Mack Nash Unit #: [id number]: 1940 Dicatated By: Paul Francisco M.D.Date of Visit:Oct 02, 2020 Onc Med Follow-up/Prog Note Chief Complaint: Prostate cancer. History of Present Illness: This is 79 year-old man with the stage IV prostatic adenocarcinoma, metastatic to bone. He has a history of coronary artery disease, smoking and alcohol consumption. He was diagnosed with an early stage intermediate risk prostatic adenocarcinoma in 1999, Constantino score 5, PSA 20.6. He underwent a primary treatment with radical retropubic prostatectomy. Reportedly, the patient had recurrent detectable PSA within one year. In October of 2012 PSA measured 10.7, with further increase to 37.7 in October 2013 and further increase to 81.2 in May 2014. The bone scan on 05/08/2014 showed increased activity in the right superior ramus, right acetabulum as well as right femoral neck. The patient began treatment with Zoladex and 2 weeks therapy with Casodex on 05/08/2014. The patient was first seen by Dr. Shah on 07/03/2014. He had no pain associated with the right leg, hip, or pelvis. CT of the chest/ abdomen/pelvis on 07/04/2014 showed no evidence of distal metastatic disease. His DEXA scan on 07/10/2014 was normal. An MRI on 08/29/2014 showed a right hip lesion extending to the cortex. He completed right hip radiation treatment on 10/13/2014. He established care with orthopedic surgeon at [facility]. He continued his androgen deprivation therapy and during subsequent follow-up his PSA level had started to increase gradually. As of 03/27/2017 it was up to 4.62 ng/mL. As of his follow-up visit on 12/16/2017 there was further increase in the PSA level to 12.90 ng/mL. He was reporting increased back pain with radiation to the left leg. He continued androgen deprivation therapy with Zoladex, but he also had further evaluation with bone scan and subsequently with CT of the lumbar spine. There was no evidence of metastatic disease on the bone scan. He lumbar spine CT did show an L4 compression fracture estimated at 30% without retropulsion. There were significant degenerative changes with moderate central canal stenosis at L2-3 and at L3-4 and there was moderate to severe foraminal stenosis at multiple sites. As of 03/18/2018 the PSA had further increased to 13.90 ng/mL. In the absence of symptomatic disease progression, he continued androgen deprivation with Zoladex. By December 2018 the PSA had further increased to 20.93 ng/mL, and at that point he was having increasing pain in the left lower back and left leg. MRI of the lumbar spine on 12/23/2018 showed significant degenerative changes which included moderate central canal stenosis and foraminal narrowing at multiple levels. Also noted was moderate left hydronephrosis with ureterectasis extending into the pelvis. Further evaluation with CT abdomen/pelvis on 01/03/2019 showed evidence of left ureteropelvic junction mass causing left ureterectasis and hydronephrosis. A left side presacral elongated soft tissue mass was noted, possibly of sacral nerve root origin, with the reported differential including schwannoma, neurofibroma, or perineural spread of neoplasm. He was referred to Dr. Puckett, and on 01/20/2019 he underwent cystoscopy and left ureteroscopy with biopsy of ureteral mass and with placement of left ureteral stent. Pathology showed fibrous tissue with chronic inflammation. There was no malignancy identified. As he appeared to be showing significant disease progression, he then began treatment with enzalutamide 160 mg daily in February 2019. He did show significant biochemical response with repeat PSA on 03/21/2019 decreasing to 3.95 ng/mL. He continued androgen deprivation with Zoladex together with enzalutamide 160 mg daily, which he appeared to be tolerating well. On 06/13/2019 he underwent cystoscopy with replacement of his left ureteral stent. The distal ureter was noted to have significant inflammatory changes, but no distinct papillary tumors were noted. As of his follow-up visit on 06/20/2019 there was further decrease in the PSA level to 0.36 ng/mL. He continued treatment with Zoladex in combination with enzalutamide. His other medical illnesses include hypertension, dyslipidemia, and coronary artery disease. He has degenerative disease of the spine. He has a long history of smoking, but had cut down to less than 1 pack of cigarettes daily. INTERIM HISTORY: He is seen for a scheduled visit. His main complaint is that his back pain had gradually worsened to the point that it was significantly limiting his activity. Last week he was given an epidural steroid injection, and that has helped significantly with his pain. His activity is still very limited, as he now has developed weakness in his legs. He is doing some walking with assistance and he is getting physical therapy. His ECOG score is 3. He has good appetite. He does not have fever. He does have hot flashes and sweating. He has shortness of breath with activity and he has a smoker's cough. He does not complain of chest pain. He has no GI complaints. He does have some issues with bladder incontinence and dribbling. He has had no other joint or bone pain. He very seldom has headache. He does have dizziness if he gets up really fast. He has no numbness/paresthesia or other focal neurologic symptoms. Medications: AmLODIPine Besylate 1 (5 mg) Tablet Oral daily, Aspirin 1 (81 mg) Tablet Oral daily, Atorvastatin Calcium (10 mg) Tablet Oral daily, Carvedilol 1 Tablet (of 6.25 mg) Oral b.i.d., Enzalutamide 4 Capsule (of 40 mg) Oral daily, gabapentin 1 Capsule (of 300 mg) Tablet t.i.d., Garlic 2 Capsule Oral daily, Hydrocodone-Acetaminophen 1 Tablet (of 5-325 mg) Oral q 8 hours PRN, Lisinopril 1 (10 mg) Tablet Oral daily, Plavix 1 (75 mg) Tablet Oral daily, Stool Softener 1 Tablet (of 100 mg) Oral daily, Triamterene-HCTZ 0.5 (37.5-25 mg) Tablet Oral daily, Venlafaxine HCl ER 1 Capsule (of 75 mg) Capsule SR 24 HR Oral daily Allergies: No Known Allergies. Vital Signs: Performed on Oct 02, 2020 13:04 Height - 72.00 in Temperature - 95.9 F (LOW) Pulse - 64 /min Respiration - 18 /min BP - 144/70 mm(hg) (HIGH) O2 Sat - 98 % Pain - 0 Fatigue - 3 Physical Examination: Constitutional - He appears generally weak, but not acutely ill, Eyes - Sclerae nonicteric. Conjunctivae clear, ENMT - No lesions noted in the oral cavity, Hematologic/Lymphatic - No cervical, clavicular, or axillary adenopathy, Respiratory - Lungs are clear with diminished air movement bilaterally, Cardiovascular - Heart rhythm is regular. There is no murmur, gallop, or rub noted, Abdomen - Mildly distended. Liver and spleen are not enlarged. There is no abdominal mass or ascites noted and there is no inguinal adenopathy, Extremities - Mild edema. He has chronic purpura, Neurologic - No focal neurologic deficits noted. Lab/Imaging: CBC shows hemoglobin 14.5 g, white blood cell count 8100, and platelet count 229,000. Comprehensive metabolic profile is unremarkable. His PSA is stable at 0.048 ng/mL. Problem List: 1. Constantino 5 adenocarcinoma of the prostate, early stage at initial diagnosis in 1999 and treated with radical prostatectomy. He presented with castration sensitive stage IV, metastatic disease in the bone in May of 2014 with PSA 81.2. 2. Hypertension. 3. Dyslipidemia. 4. Coronary artery disease. 5. Degenerative disease of the spine. Problems Addressed with this Encounter and Plan: 1. Patient with stage [place] 5 prostate cancer, early stage at initial diagnosis in 1999 and treated with radical prostatectomy. He presented with castration sensitive stage IV, metastatic disease in the bone in May of 2014 with PSA 81.2. Androgen deprivation therapy was initiated on 05/08/14 with Zoladex and 2 weeks of bicalutamide. He has had a good clinical response with PSA walter of 0.25 ng/mL on 08/27/2015. As of his follow-up visit in July 2017, his PSA level had increased just slightly, to 5.93 ng/mL. It then continued to increase gradually, to 8.62 ng/mL in September and to 12.90 ng/mL in December. At that point he had developed significant back pain. He continued androgen deprivation therapy with Zoladex, but he did have further evaluation with bone scan and subsequently with CT of the lumbar spine. Based on those results, it appeared that his pain was due to underlying degenerative disease, as there was no obvious metastatic involvement noted. As of his follow-up visit in December 2018 there was further increase in the PSA level to 20.93 ng/mL. MRI of the lumbar spine did show significant degenerative changes, but that study also showed evidence of left hydronephrosis. Further evaluation with CT abdomen/pelvison 01/03/2019 showed evidence of left ureteropelvic junction mass with associated left ureterectasis and hydronephrosis. Also noted was a left side presacral elongated soft tissue mass felt to be possibly of sacral nerve root origin. On 01/20/2019 he underwent cystoscopy and left ureteroscopy with biopsy of left ureteral mass and with placement of left ureteral stent. The biopsy showed no evidence of malignancy. As of February 2019 there was further increase in the PSA level to 24.56 ng/mL. As he did appeared to be showing symptomatic disease progression, he then started treatment with enzalutamide 160 mg daily. He reported significant improvement in his left lower back pain following placement of the ureteral stent. He also had a significant biochemical response to the enzalutamide with repeat PSA on 03/21/2019 decreasing to 3.95 ng/mL. At that point he appeared to be tolerating it well, and he continued the enzalutamide together with Zoladex. During further follow-up there was continued decrease in the PSA level, eventually stabilizing at <1 ng/mL. Despite the excellent clinical response to the androgen deprivation therapy, he has had ongoing issues with his back pain, apparently due to to the underlying degenerative disease. He has had significant improvement in the pain following a recent epidural steroid injection. His activity, though, remains very limited. However, there has been no evidence of progression of the prostate cancer, and he continues to tolerate his treatment well. As such, he will be given Zoladex 10.8 mg by subcutaneous injection and he will continue enzalutamide 160 mg daily. 2. He is at high risk for osteopenia/osteoporosis due to his androgen deprivation therapy. He has been on treatment with Prolia for maintenance of bone health. Signed By: Paul Francisco M.D. <<Signature on File>>
== END 2020-10-02 12:45 | disposition home or self-care (01) ==
LOC: ONCMED 12:47
PROVIDERS: PCP Family Medicine; Visit Provider Internal Medicine Medical Oncology
DX: C61 Malignant neoplasm of prostate (principal); C79.51 Secondary malignant neoplasm of bone; M48.9 Spondylopathy, unspecified; Z90.79 Acquired absence of other genital organ(s); Z79.818 Long term (current) use of other agents affecting estrogen receptors and estrogen levels
CPT/HCPCS: 96372; 96402; 99214; J9202

== ENCOUNTER → 2020-10-17 09:21 | Outpatient (BNVA) | payer MEDICARE, OTHER, SELFPAY | PROVIDERS: PCP Family Medicine; Visit Provider Anesthesiology Pain Medicine | DX: M48.062 Spinal stenosis, lumbar region with neurogenic claudication (principal); M47.816 Spondylosis without myelopathy or radiculopathy, lumbar region; M54.16 Radiculopathy, lumbar region; M51.36 Other intervertebral disc degeneration, lumbar region; M46.00 Spinal enthesopathy, site unspecified; F17.210 Nicotine dependence, cigarettes, uncomplicated; Z85.46 Personal history of malignant neoplasm of prostate; Z79.891 Long term (current) use of opiate analgesic | CPT/HCPCS: 99214 ==

== ENCOUNTER 2021-01-03 10:49 | Outpatient (CLI) | payer MEDICARE, OTHER, SELFPAY ==
[2021-01-03 11:47] LABS: Basophils % 0.5 %; Eosinophils # 0.3 10^3/uL (0.0-0.8); Eosinophils % 4.5 %; Hematocrit 40.4 % (42.0-52.0); Lymphocytes % 32.6 %; Mean Corpuscular HGB Conc 32.2 g/dL (30.0-36.0); Mean Corpuscular Hemoglobin 33.7 pg (28.0-34.0); Mean Corpuscular Volume 104.7 fL (80-94); Mean Platelet Volume 12.5 fL (7.4-10.4); Monocytes # 0.5 10^3/uL (0.2-0.9); Monocytes % 8.3 %; Neutrophils # 3.24 10^3/uL (1.8-7.7); Neutrophils % 53.9 %; Nucleated Red Blood Cells % 0 %; Platelet Count 201 10^3/cmm (130-400); Red Blood Count 3.86 10^6/uL (4.1-5.3)
[2021-01-03 12:21] LABS: Prostate Specific Antigen 0.044 ng/mL (0-4); Testosterone Total 10.6 ng/dL (193-740)
[2021-01-03 12:33] LABS: Alanine Aminotransferase 10 U/L (0-41); Albumin Level 3.7 g/dL (3.5-5.2); Alkaline Phosphatase 78 IU/L (40-130); Anion Gap 15.2 (5-19); Aspartate Amino Transferase 12 U/L (0-40); Blood Urea Nitrogen 21 mg/dL (8-23); Calcium 8.7 mg/dL (8.5-10.5); Carbon Dioxide 25 mmol/L (22-29); Chloride 104 mmol/L (98-107); Globulin 2.7 g/dL (1.3-4.6); Glucose 120 mg/dL (65-115); Osmolality Calculated 294 mOsm/kg (285-295); Potassium 4.2 mmol/L (3.5-5.1); Sodium 140 mmol/L (136-145); Total Bilirubin 0.5 mg/dL (0.15-1.2); Total Protein 6.4 g/dL (6.6-8.7)
[2021-01-03] MEDS: lidocaine 1% INJ 20 mL INJECTION (13:14)
[2021-01-03] MEDS: denosumab 60 mg SDV SUBCUT (13:20)
[2021-01-03] MEDS: goserelin acetate 10.8 mg Implant SUBCUT (13:28)
--- NOTE | 2021-01-03 18:18 | ONC FU_ITS ---
Dr. Francisco Patient Follow-Up Note Patient: Mack Nash Unit #: [id number]: [id number] Dicatated By: Paul Francisco M.D.Date of Visit:Jan 03, 2021 Onc Med Follow-up/Prog Note Chief Complaint: Prostate cancer. History of Present Illness: This is 80 year-old man with the stage IV prostatic adenocarcinoma, metastatic to bone. He has a history of coronary artery disease, smoking and alcohol consumption. He was diagnosed with an early stage intermediate risk prostatic adenocarcinoma in 1999, Constantino score 5, PSA 20.6. He underwent a primary treatment with radical retropubic prostatectomy. Reportedly, the patient had recurrent detectable PSA within one year. In October of 2012 PSA measured 10.7, with further increase to 37.7 in October 2013 and further increase to 81.2 in May 2014. The bone scan on 05/08/2014 showed increased activity in the right superior ramus, right acetabulum, and right femoral neck. The patient began treatment with Zoladex and 2 weeks therapy with Casodex on 05/08/2014. He was first seen by Dr. Shah on 07/03/2014. He had no pain associated with the right leg, hip, or pelvis. CT of the chest/ abdomen/pelvis on 07/04/2014 showed no evidence of distal metastatic disease. His DEXA scan on 07/10/2014 was normal. An MRI on 08/29/2014 showed a right hip lesion extending to the cortex. He completed right hip radiation treatment on 10/13/2014. He established care with orthopedic surgeon at [facility]. He continued his androgen deprivation therapy and during subsequent follow-up his PSA level had started to increase gradually. As of 03/27/2017 it was up to 4.62 ng/mL. As of his follow-up visit on 12/16/2017 there was further increase in the PSA level to 12.90 ng/mL. He was reporting increased back pain with radiation to the left leg. He continued androgen deprivation therapy with Zoladex, but he also had further evaluation with bone scan and subsequently with CT of the lumbar spine. There was no evidence of metastatic disease on the bone scan. He lumbar spine CT did show an L4 compression fracture estimated at 30% without retropulsion. There were significant degenerative changes with moderate central canal stenosis at L2-3 and at L3-4 and there was moderate to severe foraminal stenosis at multiple sites. As of 03/18/2018 the PSA had further increased to 13.90 ng/mL. In the absence of symptomatic disease progression, he continued androgen deprivation with Zoladex. By December 2018 the PSA had further increased to 20.93 ng/mL, and at that point he was having increasing pain in the left lower back and left leg. MRI of the lumbar spine on 12/23/2018 showed significant degenerative changes which included moderate central canal stenosis and foraminal narrowing at multiple levels. Also noted was moderate left hydronephrosis with ureterectasis extending into the pelvis. Further evaluation with CT abdomen/pelvis on 01/03/2019 showed evidence of left ureteropelvic junction mass causing left ureterectasis and hydronephrosis. A left side presacral elongated soft tissue mass was noted, possibly of sacral nerve root origin, with the reported differential including schwannoma, neurofibroma, or perineural spread of neoplasm. He was referred to Dr. Puckett, and on 01/20/2019 he underwent cystoscopy and left ureteroscopy with biopsy of ureteral mass and with placement of left ureteral stent. Pathology showed fibrous tissue with chronic inflammation. There was no malignancy identified. As he appeared to be showing significant disease progression, he then began treatment with enzalutamide 160 mg daily in February 2019. He did show significant biochemical response with repeat PSA on 03/21/2019 decreasing to 3.95 ng/mL. He continued androgen deprivation with Zoladex together with enzalutamide 160 mg daily, which he appeared to be tolerating well. On 06/13/2019 he underwent cystoscopy with replacement of his left ureteral stent. The distal ureter was noted to have significant inflammatory changes, but no distinct papillary tumors were noted. As of his follow-up visit on 06/20/2019 there was further decrease in the PSA level to 0.36 ng/mL. He continued treatment with Zoladex in combination with enzalutamide. His other medical illnesses include hypertension, dyslipidemia, and coronary artery disease. He has degenerative disease of the spine. He has a long history of smoking, but had cut down to less than 1 pack of cigarettes daily. INTERIM HISTORY: He is seen for a scheduled visit. He has been feeling pretty good, though he continues to have limited activity. He has restarted physical therapy, and he is doing exercises. He is able to ambulate with a walker. ECOG score is 2. He has good appetite. He has not had fever. He does have hot flashes, but not as frequently as he used to. He has a smoker's cough and he has some shortness of breath with activity. He does not complain of chest pain. He has no GI complaints. He continues follow-up with Dr. Puckett for his ureteral stent. He sometimes has a chill when he is voiding. He continues to have lower back pain, but it is adequately managed with medication. He does not complain of headache. He has some orthostatic lightheadedness. He has no numbness/paresthesia or other focal neurologic symptoms. Medications: AmLODIPine Besylate 1 (5 mg) Tablet Oral daily, Aspirin 1 (81 mg) Tablet Oral daily, Atorvastatin Calcium (10 mg) Tablet Oral daily, Carvedilol 1 Tablet (of 6.25 mg) Oral b.i.d., Enzalutamide 4 Capsule (of 40 mg) Oral daily, gabapentin 1 Capsule (of 300 mg) Tablet t.i.d., Garlic 2 Capsule Oral daily, Hydrocodone-Acetaminophen 1 Tablet (of 5-325 mg) Oral q 8 hours PRN, Lisinopril 1 (10 mg) Tablet Oral daily, Plavix 1 (75 mg) Tablet Oral daily, Stool Softener 1 Tablet (of 100 mg) Oral daily, Triamterene-HCTZ 0.5 (37.5-25 mg) Tablet Oral daily, Venlafaxine HCl ER 1 Capsule (of 75 mg) Capsule SR 24 HR Oral daily Allergies: No Known Allergies. Vital Signs: Performed on Jan 03, 2021 13:58 Height - 72.00 in Weight - 232 lbs (LOW) BSA - 2.27 sq.m BMI - 31.47 (HIGH) Temperature - 96 F (LOW) Pulse - 51 /min (LOW) Respiration - 18 /min BP - 122/69 mm(hg) O2 Sat - 98 % Pain - 4 Fatigue - 4 Physical Examination: Constitutional - He appears generally weak, Eyes - Sclerae nonicteric. Conjunctivae clear, ENMT - No lesions noted in the oral cavity, Hematologic/Lymphatic - No cervical, clavicular, or axillary adenopathy, Respiratory - Lungs are clear with diminished air movement bilaterally, Cardiovascular - Heart rhythm is regular. There is no murmur, gallop, or rub noted, Abdomen - Mildly distended. Liver and spleen are not enlarged. There is no abdominal mass or ascites noted and there is no inguinal adenopathy, Extremities - Mild lower extremity edema. He has chronic purpura, Neurologic - No focal neurologic deficits noted. Lab/Imaging: Test performed on Jan 03, 2021 11:08 Sodium 140 mmol/L Testosterone, Total 10.6 ng/dL Potassium 4.2 mmol/L Chloride 104 mmol/L CO2 25 mmol/L Anion Gap 15.2 BUN 21 mg/dL Creatinine 1.0 mg/dL Cr Clearance (Est) 90.62 mL/min Glucose 120 mg/dL Osmolality - Calculated 294 mOsm/kg Calcium 8.7 mg/dL Protein, Total 6.4 g/dL Albumin 3.7 g/dL Globulin 2.7 g/dL Bilirubin, Total 0.5 mg/dL ALT (SGPT) 10 U/L AST (SGOT) 12 U/L Alkaline Phosphatase 78 IU/L WBC 6.0 10 3/uL RBC 3.86 10 6/uL HGB 13.0 g/dL HCT 40.4 % MCV 104.7 fL MCH 33.7 pg MCHC 32.2 g/dL RDW 13.0 % Platelet Count 201 10 3/cmm MPV 12.5 fL Neutrophils 3.24 10 3/uL Lymphocytes 2.0 10 3/uL Monocytes 0.5 10 3/uL Eosinophils 0.3 10 3/uL Basophils 0.0 10 3/uL Neutrophil % 53.9 % Lymphocyte % 32.6 % Monocyte % 8.3 % Eosinophil % 4.5 % Basophils % 0.5 % NRBC % 0 % PSA 0.044 ng/mL Problem List: 1. Constantino 5 adenocarcinoma of the prostate, early stage at initial diagnosis in 1999 and treated with radical prostatectomy. He presented with castration sensitive stage IV, metastatic disease in the bone in May of 2014 with PSA 81.2. 2. Hypertension. 3. Dyslipidemia. 4. Coronary artery disease. 5. Degenerative disease of the spine. Problems Addressed with this Encounter and Plan: 1. Patient with stage [place] 5 prostate cancer, early stage at initial diagnosis in 1999 and treated with radical prostatectomy. He presented with castration sensitive stage IV, metastatic disease in the bone in May of 2014 with PSA 81.2. Androgen deprivation therapy was initiated on 05/08/14 with Zoladex and 2 weeks of bicalutamide. He has had a good clinical response with PSA walter of 0.25 ng/mL on 08/27/2015. As of his follow-up visit in July 2017, his PSA level had increased just slightly, to 5.93 ng/mL. It then continued to increase gradually, to 8.62 ng/mL in September and to 12.90 ng/mL in December. At that point he had developed significant back pain. He continued androgen deprivation therapy with Zoladex, but he did have further evaluation with bone scan and subsequently with CT of the lumbar spine. Based on those results, it appeared that his pain was due to underlying degenerative disease, as there was no obvious metastatic involvement noted. As of his follow-up visit in December 2018 there was further increase in the PSA level to 20.93 ng/mL. MRI of the lumbar spine did show significant degenerative changes, but that study also showed evidence of left hydronephrosis. Further evaluation with CT abdomen/pelvison 01/03/2019 showed evidence of left ureteropelvic junction mass with associated left ureterectasis and hydronephrosis. Also noted was a left side presacral elongated soft tissue mass felt to be possibly of sacral nerve root origin. On 01/20/2019 he underwent cystoscopy and left ureteroscopy with biopsy of left ureteral mass and with placement of left ureteral stent. The biopsy showed no evidence of malignancy. As of February 2019 there was further increase in the PSA level to 24.56 ng/mL. As he did appeared to be showing symptomatic disease progression, he then started treatment with enzalutamide 160 mg daily. He reported significant improvement in his left lower back pain following placement of the ureteral stent. He also had a significant biochemical response to the enzalutamide with repeat PSA on 03/21/2019 decreasing to 3.95 ng/mL. At that point he appeared to be tolerating it well, and he continued the enzalutamide together with Zoladex. During further follow-up there was continued decrease in the PSA level, eventually stabilizing at <1 ng/mL. During followup he has continued to tolerate treatment with acceptable side effects and thus far there has been no evidence of progression of the prostate cancer. As such, he will be given Zoladex 10.8 mg by subcutaneous injection and he will continue enzalutamide 160 mg daily. He will be scheduled for a followup visit in 3 months. 2. Despite the excellent clinical response to the androgen deprivation therapy, he has had ongoing issues with his back pain, apparently due to the underlying degenerative disease. He had significant improvement in the pain following an epidural steroid injection. His activity remains limited, but he is able to ambulate with a walker and he has restarted physical therapy. His pain is being managed adequately now with medication. 3. He is at high risk for osteopenia/osteoporosis due to his androgen deprivation therapy. He has been on treatment with Prolia for maintenance of bone health, and he will be given Prolia 60 mg by subcutaneous injection today. Signed By: Paul Francisco M.D. <<Signature on File>>
== END 2021-01-03 10:50 | disposition home or self-care (01) ==
PROVIDERS: PCP Family Medicine; Visit Provider Internal Medicine Medical Oncology
DX: C61 Malignant neoplasm of prostate (principal); C79.51 Secondary malignant neoplasm of bone; M81.0 Age-related osteoporosis without current pathological fracture; I10 Essential (primary) hypertension; E78.5 Hyperlipidemia, unspecified; I25.10 Atherosclerotic heart disease of native coronary artery without angina pectoris; M47.9 Spondylosis, unspecified; Z79.899 Other long term (current) drug therapy; Z79.818 Long term (current) use of other agents affecting estrogen receptors and estrogen levels; Z92.21 Personal history of antineoplastic chemotherapy
CPT/HCPCS: 80053; 84153; 84403; 85025; 96372; 96402; 99214; J0897; J9202

== ENCOUNTER 2021-04-03 11:26 | Outpatient (CLI) | payer MEDICARE, OTHER, SELFPAY ==
[2021-04-03 12:21] LABS: Basophils % 0.5 %; Eosinophils # 0.2 10^3/uL (0.0-0.8); Eosinophils % 3.9 %; Hematocrit 41.8 % (42.0-52.0); Hemoglobin 13.6 g/dL (11.7-16.6); Lymphocytes # 1.7 10^3/uL (0.8-4.8); Lymphocytes % 28.1 %; Mean Corpuscular HGB Conc 32.5 g/dL (30.0-36.0); Mean Corpuscular Hemoglobin 33.8 pg (28.0-34.0); Mean Platelet Volume 12.4 fL (7.4-10.4); Monocytes # 0.6 10^3/uL (0.2-0.9); Monocytes % 9.8 %; Neutrophils % 57.5 %; Nucleated Red Blood Cells % 0 %; Platelet Count 210 10^3/cmm (130-400); Red Blood Count 4.02 10^6/uL (4.1-5.3); White Blood Count 5.9 10^3/uL (4.0-10.0)
[2021-04-03 12:58] LABS: Testosterone Total 3.7 ng/dL (193-740)
[2021-04-03 13:09] LABS: Alanine Aminotransferase 10 U/L (0-41); Albumin Level 3.8 g/dL (3.5-5.2); Alkaline Phosphatase 55 IU/L (40-130); Anion Gap 14.8 (5-19); Aspartate Amino Transferase 12 U/L (0-40); Blood Urea Nitrogen 23 mg/dL (8-23); Calcium 8.8 mg/dL (8.5-10.5); Carbon Dioxide 24 mmol/L (22-29); Chloride 103 mmol/L (98-107); Glucose 126 mg/dL (65-115); Osmolality Calculated 291 mOsm/kg (285-295); Potassium 3.8 mmol/L (3.5-5.1); Sodium 138 mmol/L (136-145); Total Bilirubin 0.5 mg/dL (0.15-1.2); Total Protein 6.8 g/dL (6.6-8.7)
[2021-04-03] MEDS: lidocaine 1% INJ 20 mL INJECTION (13:25)
[2021-04-03] MEDS: goserelin acetate 10.8 mg Implant SUBCUT (13:40)
--- NOTE | 2021-04-03 15:38 | ONC FU_ITS ---
Dr. Francisco Patient Follow-Up Note Patient: Mack Nash Unit #: [id number]: [id number] Dicatated By: Paul Francisco M.D.Date of Visit:Apr 03, 2021 Onc Med Follow-up/Prog Note Chief Complaint: Prostate cancer. History of Present Illness: This is 80 year-old man with the stage IV prostatic adenocarcinoma, metastatic to bone. He has a history of coronary artery disease, smoking and alcohol consumption. He was diagnosed with an early stage intermediate risk prostatic adenocarcinoma in 1999, Constantino score 5, PSA 20.6. He underwent a primary treatment with radical retropubic prostatectomy. Reportedly, the patient had recurrent detectable PSA within one year. In October of 2012 PSA measured 10.7, with further increase to 37.7 in October 2013 and further increase to 81.2 in May 2014. The bone scan on 05/08/2014 showed increased activity in the right superior ramus, right acetabulum, and right femoral neck. The patient began treatment with Zoladex and 2 weeks therapy with Casodex on 05/08/2014. He was first seen by Dr. Shah on 07/03/2014. He had no pain associated with the right leg, hip, or pelvis. CT of the chest/ abdomen/pelvis on 07/04/2014 showed no evidence of distal metastatic disease. His DEXA scan on 07/10/2014 was normal. An MRI on 08/29/2014 showed a right hip lesion extending to the cortex. He completed right hip radiation treatment on 10/13/2014. He established care with orthopedic surgeon at [facility]. He continued his androgen deprivation therapy and during subsequent follow-up his PSA level had started to increase gradually. As of 03/27/2017 it was up to 4.62 ng/mL. As of his follow-up visit on 12/16/2017 there was further increase in the PSA level to 12.90 ng/mL. He was reporting increased back pain with radiation to the left leg. He continued androgen deprivation therapy with Zoladex, but he also had further evaluation with bone scan and subsequently with CT of the lumbar spine. There was no evidence of metastatic disease on the bone scan. He lumbar spine CT did show an L4 compression fracture estimated at 30% without retropulsion. There were significant degenerative changes with moderate central canal stenosis at L2-3 and at L3-4 and there was moderate to severe foraminal stenosis at multiple sites. As of 03/18/2018 the PSA had further increased to 13.90 ng/mL. In the absence of symptomatic disease progression, he continued androgen deprivation with Zoladex. By December 2018 the PSA had further increased to 20.93 ng/mL, and at that point he was having increasing pain in the left lower back and left leg. MRI of the lumbar spine on 12/23/2018 showed significant degenerative changes which included moderate central canal stenosis and foraminal narrowing at multiple levels. Also noted was moderate left hydronephrosis with ureterectasis extending into the pelvis. Further evaluation with CT abdomen/pelvis on 01/03/2019 showed evidence of left ureteropelvic junction mass causing left ureterectasis and hydronephrosis. A left side presacral elongated soft tissue mass was noted, possibly of sacral nerve root origin, with the reported differential including schwannoma, neurofibroma, or perineural spread of neoplasm. He was referred to Dr. Puckett, and on 01/20/2019 he underwent cystoscopy and left ureteroscopy with biopsy of ureteral mass and with placement of left ureteral stent. Pathology showed fibrous tissue with chronic inflammation. There was no malignancy identified. As he appeared to be showing significant disease progression, he then began treatment with enzalutamide 160 mg daily in February 2019. He did show significant biochemical response with repeat PSA on 03/21/2019 decreasing to 3.95 ng/mL. He continued androgen deprivation with Zoladex together with enzalutamide 160 mg daily, which he appeared to be tolerating well. On 06/13/2019 he underwent cystoscopy with replacement of his left ureteral stent. The distal ureter was noted to have significant inflammatory changes, but no distinct papillary tumors were noted. As of his follow-up visit on 06/20/2019 there was further decrease in the PSA level to 0.36 ng/mL. He continued treatment with Zoladex in combination with enzalutamide. His other medical illnesses include hypertension, dyslipidemia, and coronary artery disease. He has degenerative disease of the spine. He has a long history of smoking, but had cut down to less than 1 pack of cigarettes daily. INTERIM HISTORY: He is seen for a scheduled visit. He has been feeling pretty good generally. He has had ongoing problems with his back pain, which has limited his activity. However, the pain has been better since his last injection, and he is now able to ambulate with a cane, and he is trying to straighten up his back more. His ECOG score is 2. He has good appetite. He has not had fever. He still has hot flashes. He has not had sore mouth or throat. He does not complain of shortness of breath or cough, he has not been having chest pain. He has no GI complaints. Bladder function remains adequate, though he sometimes has a little dribbling. He also has some pain in his left knee at times. He occasionally has slight headache and occasionally has orthostatic lightheadedness. He has no numbness/paresthesia or other focal neurologic symptoms. Medications: AmLODIPine Besylate 1 (5 mg) Tablet Oral daily, Aspirin 1 (81 mg) Tablet Oral daily, Atorvastatin Calcium (10 mg) Tablet Oral daily, Carvedilol 1 Tablet (of 6.25 mg) Oral b.i.d., Enzalutamide 4 Capsule (of 40 mg) Oral daily, gabapentin 1 Capsule (of 300 mg) Tablet t.i.d., Garlic 2 Capsule Oral daily, Hydrocodone-Acetaminophen 1 Tablet (of 5-325 mg) Oral q 8 hours PRN, Lisinopril 1 (10 mg) Tablet Oral daily, Plavix 1 (75 mg) Tablet Oral daily, Stool Softener 1 Tablet (of 100 mg) Oral daily, Triamterene-HCTZ 0.5 (37.5-25 mg) Tablet Oral daily, Venlafaxine HCl ER 1 Capsule (of 75 mg) Capsule SR 24 HR Oral daily Allergies: No Known Allergies. Vital Signs: Performed on Apr 03, 2021 14:46 Height - 72.00 in Weight - 237.6 lbs (HIGH) BSA - 2.29 sq.m BMI - 32.22 (HIGH) Temperature - 97.3 F (LOW) Pulse - 61 /min Respiration - 18 /min BP - 144/71 mm(hg) (HIGH) O2 Sat - 97 % Pain - 0 Fatigue - 0 Physical Examination: Constitutional - He appears somewhat weak generally, Eyes - Sclerae nonicteric. Conjunctivae clear, ENMT - No lesions noted in the oral cavity, Hematologic/Lymphatic - No cervical, clavicular, or axillary adenopathy, Respiratory - Lungs are clear with diminished air movement bilaterally, Cardiovascular - Heart rhythm is regular. There is no murmur, gallop, or rub noted, Abdomen - Mildly distended. Liver and spleen are not enlarged. There is no abdominal mass or ascites noted and there is no inguinal adenopathy, Extremities - There is mild lower extremity edema. He has chronic purpura, Neurologic - No focal neurologic deficits noted. Lab/Imaging: Test performed on Apr 03, 2021 11:40 Sodium 138 mmol/L Testosterone, Total 3.7 ng/dL Potassium 3.8 mmol/L Chloride 103 mmol/L CO2 24 mmol/L Anion Gap 14.8 BUN 23 mg/dL Creatinine 0.8 mg/dL Cr Clearance (Est) 116.0100 mL/min Glucose 126 mg/dL Osmolality - Calculated 291 mOsm/kg Calcium 8.8 mg/dL Protein, Total 6.8 g/dL Albumin 3.8 g/dL Globulin 3.0 g/dL Bilirubin, Total 0.5 mg/dL ALT (SGPT) 10 U/L AST (SGOT) 12 U/L Alkaline Phosphatase 55 IU/L WBC 5.9 10 3/uL RBC 4.02 10 6/uL HGB 13.6 g/dL HCT 41.8 % MCV 104.0 fl MCH 33.8 pg MCHC 32.5 g/dL RDW 13.0 % Platelet Count 210 10 3/cmm MPV 12.4 fL Neutrophils 3.40 10 3/uL Lymphocytes 1.7 10 3/uL Monocytes 0.6 10 3/uL Eosinophils 0.2 10 3/uL Basophils 0.0 10 3/uL Neutrophil % 57.5 % Lymphocyte % 28.1 % Monocyte % 9.8 % Eosinophil % 3.9 % Basophils % 0.5 % NRBC % 0 % PSA 0.030 ng/mL Problem List: 1. [place] 5 adenocarcinoma of the prostate, early stage at initial diagnosis in 1999 and treated with radical prostatectomy. He presented with castration sensitive stage IV, metastatic disease in the bone in May of 2014 with PSA 81.2. 2. Hypertension. 3. Dyslipidemia. 4. Coronary artery disease. 5. Degenerative disease of the spine. Problems Addressed with this Encounter and Plan: 1. Patient with stage Constantino 5 prostate cancer, early stage at initial diagnosis in 1999 and treated with radical prostatectomy. He presented with castration sensitive stage IV, metastatic disease in the bone in May of 2014 with PSA 81.2. Androgen deprivation therapy was initiated on 05/08/14 with Zoladex and 2 weeks of bicalutamide. He has had a good clinical response with PSA walter of 0.25 ng/mL on 08/27/2015. As of his follow-up visit in July 2017, his PSA level had increased just slightly, to 5.93 ng/mL. It then continued to increase gradually, to 8.62 ng/mL in September and to 12.90 ng/mL in December. At that point he had developed significant back pain. He continued androgen deprivation therapy with Zoladex, but he did have further evaluation with bone scan and subsequently with CT of the lumbar spine. Based on those results, it appeared that his pain was due to underlying degenerative disease, as there was no obvious metastatic involvement noted. As of his follow-up visit in December 2018 there was further increase in the PSA level to 20.93 ng/mL. MRI of the lumbar spine did show significant degenerative changes, but that study also showed evidence of left hydronephrosis. Further evaluation with CT abdomen/pelvison 01/03/2019 showed evidence of left ureteropelvic junction mass with associated left ureterectasis and hydronephrosis. Also noted was a left side presacral elongated soft tissue mass felt to be possibly of sacral nerve root origin. On 01/20/2019 he underwent cystoscopy and left ureteroscopy with biopsy of left ureteral mass and with placement of left ureteral stent. The biopsy showed no evidence of malignancy. As of February 2019 there was further increase in the PSA level to 24.56 ng/mL. As he did appeared to be showing symptomatic disease progression, he then started treatment with enzalutamide 160 mg daily. He reported significant improvement in his left lower back pain following placement of the ureteral stent. He also had a significant biochemical response to the enzalutamide with repeat PSA on 03/21/2019 decreasing to 3.95 ng/mL. At that point he appeared to be tolerating it well, and he continued the enzalutamide together with Zoladex. During followup he has continued to tolerate treatment with acceptable side effects. He has been showing a very good resposne with his PSA level now down to 0.03 ng/mL. As such, he will be given Zoladex 10.8 mg by subcutaneous injection and he will continue enzalutamide 160 mg daily. He will be scheduled for a followup visit in 3 months. 2. Despite the excellent clinical response to the androgen deprivation therapy, he has had ongoing issues with his back pain, apparently due to the underlying degenerative disease. He had significant improvement in the pain following an epidural steroid injection. His pain has otherwise been managed adequately with yydrocodone/APAP. 3. He is at high risk for osteopenia/osteoporosis due to his androgen deprivation therapy. He has been on treatment with Prolia for maintenance of bone health. Signed By: Paul Francisco M.D. <<Signature on File>>
== END 2021-04-03 11:27 | disposition home or self-care (01) ==
LOC: ONCMED 11:29
PROVIDERS: PCP Family Medicine; Visit Provider Internal Medicine Medical Oncology
DX: C61 Malignant neoplasm of prostate (principal); C79.51 Secondary malignant neoplasm of bone; M47.9 Spondylosis, unspecified; Z19.2 Hormone resistant malignancy status; I10 Essential (primary) hypertension; E78.5 Hyperlipidemia, unspecified; I25.10 Atherosclerotic heart disease of native coronary artery without angina pectoris; Z79.818 Long term (current) use of other agents affecting estrogen receptors and estrogen levels; Z79.899 Other long term (current) drug therapy; Z79.82 Long term (current) use of aspirin; Z79.891 Long term (current) use of opiate analgesic
CPT/HCPCS: 36415; 80053; 84153; 84403; 85025; 96402; 99215; J9202

== ENCOUNTER → 2021-06-11 11:02 | Outpatient (BNVA) | payer MEDICARE, OTHER, SELFPAY | PROVIDERS: PCP Family Medicine; Visit Provider Anesthesiology Pain Medicine | DX: M47.816 Spondylosis without myelopathy or radiculopathy, lumbar region (principal); M48.062 Spinal stenosis, lumbar region with neurogenic claudication; M54.16 Radiculopathy, lumbar region; M51.36 Other intervertebral disc degeneration, lumbar region; M46.00 Spinal enthesopathy, site unspecified; M79.605 Pain in left leg; C61 Malignant neoplasm of prostate; Z79.891 Long term (current) use of opiate analgesic; F17.200 Nicotine dependence, unspecified, uncomplicated | CPT/HCPCS: 99214 ==

== ENCOUNTER 2021-06-11 12:52 | Outpatient (CLI) | payer MEDICARE, OTHER, SELFPAY ==
--- NOTE | 2021-06-11 12:59 | XR_ITS ---
WS: [id number] LUMBAR SPINE TECHNIQUE: 5 views of the lumbar spine CLINICAL INFORMATION: M47.816 - Spondylosis without myelopathy or radiculopathy... COMPARISON: None. FINDINGS: Moderate lumbar curve convex right. Spondylitic changes lumbar spine. Left ureteral stent. Vascular c alcification. Disc space narrowing worse at L2-3, L3-4, L4-L5, and L5-S1. Chronic compression deformi ty of L4 unchanged. Chronic anterior wedging in the lower thoracic spine. Vascular calcification. Adv anced facet arthropathy L5-S1. XR/XR lumbar spine min 4V [id number] IMPRESSION: 1. Advanced spondylitic changes lumbar spine with moderate lumbar curve. 2. Chronic compression deformity L4 unchanged. 3. Disc space narrowing throughout the lumbar spine L2-L5 with vacuum disc phe nomenon. 4. Moderate facet arthropathy L5-S1
== END 2021-06-11 12:53 | disposition home or self-care (01) ==
PROVIDERS: PCP Family Medicine; Visit Provider Anesthesiology Pain Medicine
DX: M47.816 Spondylosis without myelopathy or radiculopathy, lumbar region (principal); M47.817 Spondylosis without myelopathy or radiculopathy, lumbosacral region; M48.062 Spinal stenosis, lumbar region with neurogenic claudication; M54.16 Radiculopathy, lumbar region; M51.36 Other intervertebral disc degeneration, lumbar region; M46.00 Spinal enthesopathy, site unspecified; M79.605 Pain in left leg; C61 Malignant neoplasm of prostate; Z79.891 Long term (current) use of opiate analgesic; F17.200 Nicotine dependence, unspecified, uncomplicated
CPT/HCPCS: 72110; 99214

== ENCOUNTER → 2021-06-26 13:58 | Outpatient (BNVA) | payer MEDICARE, OTHER, SELFPAY | PROVIDERS: PCP Family Medicine; Visit Provider Anesthesiology Pain Medicine | DX: M48.062 Spinal stenosis, lumbar region with neurogenic claudication (principal); M54.16 Radiculopathy, lumbar region; Z79.891 Long term (current) use of opiate analgesic | CPT/HCPCS: 64483; 64484; J1100; J3490 ==

== ENCOUNTER 2021-07-08 11:18 | Outpatient (CLI) | payer MEDICARE, OTHER, SELFPAY ==
[2021-07-08 11:48] LABS: Basophils % 0.6 %; Eosinophils # 0.4 10^3/uL (0.0-0.8); Eosinophils % 6.5 %; Hematocrit 40.9 % (42.0-52.0); Hemoglobin 13.5 g/dL (11.7-16.6); Lymphocytes # 1.7 10^3/uL (0.8-4.8); Lymphocytes % 25.1 %; Mean Corpuscular Hemoglobin 33.8 pg (28.0-34.0); Mean Corpuscular Volume 102.5 fl (80-94); Mean Platelet Volume 11.4 fL (7.4-10.4); Monocytes # 0.6 10^3/uL (0.2-0.9); Monocytes % 9.1 %; Neutrophils # 3.97 10^3/uL (1.8-7.7); Neutrophils % 58.4 %; Nucleated Red Blood Cells % 0 %; Platelet Count 207 10^3/cmm (130-400); Red Blood Count 3.99 10^6/uL (4.1-5.3); Red Cell Distribution Width 13.7 % (12.1-15.1); White Blood Count 6.8 10^3/uL (4.0-10.0)
[2021-07-08 12:51] LABS: Alanine Aminotransferase 10 U/L (0-41); Albumin Level 3.7 g/dL (3.5-5.2); Alkaline Phosphatase 65 IU/L (40-130); Anion Gap 15.1 (5-19); Aspartate Amino Transferase 13 U/L (0-40); Blood Urea Nitrogen 16 mg/dL (8-23); Calcium 8.7 mg/dL (8.5-10.5); Carbon Dioxide 24 mmol/L (22-29); Chloride 103 mmol/L (98-107); Globulin 2.7 g/dL (1.3-4.6); Glucose 122 mg/dL (65-115); Osmolality Calculated 288 mOsm/kg (285-295); Potassium 4.1 mmol/L (3.5-5.1); Prostate Specific Antigen 0.086 ng/mL (0-4); Sodium 138 mmol/L (136-145); Total Bilirubin 0.5 mg/dL (0.15-1.2); Total Protein 6.4 g/dL (6.6-8.7)
[2021-07-08] MEDS: lidocaine 1% INJ 20 mL INJECTION (13:22)
[2021-07-08] MEDS: goserelin acetate 10.8 mg Implant SUBCUT (13:40)
[2021-07-08 13:44] LABS: Testosterone Total 6.2 ng/dL (193-740)
[2021-07-08] MEDS: denosumab 60 mg SDV SUBCUT (14:00)
--- NOTE | 2021-07-12 08:23 | ONC FU_ITS ---
Dr. Francisco Patient Follow-Up Note Patient: Mack Nash Unit #: [id number]: [id number] Dicatated By: Paul Francisco M.D.Date of Visit:Jul 08, 2021 Onc Med Follow-up/Prog Note Chief Complaint: Prostate cancer. History of Present Illness: This is 80 year-old man with the stage IV prostatic adenocarcinoma, metastatic to bone. He has a history of coronary artery disease, smoking and alcohol consumption. He was diagnosed with an early stage intermediate risk prostatic adenocarcinoma in 1999, Constantino score 5, PSA 20.6. He underwent a primary treatment with radical retropubic prostatectomy. Reportedly, the patient had recurrent detectable PSA within one year. In October of 2012 PSA measured 10.7, with further increase to 37.7 in October 2013 and further increase to 81.2 in May 2014. The bone scan on 05/08/2014 showed increased activity in the right superior ramus, right acetabulum, and right femoral neck. The patient began treatment with Zoladex and 2 weeks therapy with Casodex on 05/08/2014. He was first seen by Dr. Shah on 07/03/2014. He had no pain associated with the right leg, hip, or pelvis. CT of the chest/ abdomen/pelvis on 07/04/2014 showed no evidence of distal metastatic disease. His DEXA scan on 07/10/2014 was normal. An MRI on 08/29/2014 showed a right hip lesion extending to the cortex. He completed right hip radiation treatment on 10/13/2014. He established care with orthopedic surgeon at [facility]. He continued his androgen deprivation therapy and during subsequent follow-up his PSA level had started to increase gradually. As of 03/27/2017 it was up to 4.62 ng/mL. As of his follow-up visit on 12/16/2017 there was further increase in the PSA level to 12.90 ng/mL. He was reporting increased back pain with radiation to the left leg. He continued androgen deprivation therapy with Zoladex, but he also had further evaluation with bone scan and subsequently with CT of the lumbar spine. There was no evidence of metastatic disease on the bone scan. He lumbar spine CT did show an L4 compression fracture estimated at 30% without retropulsion. There were significant degenerative changes with moderate central canal stenosis at L2-3 and at L3-4 and there was moderate to severe foraminal stenosis at multiple sites. As of 03/18/2018 the PSA had further increased to 13.90 ng/mL. In the absence of symptomatic disease progression, he continued androgen deprivation with Zoladex. By December 2018 the PSA had further increased to 20.93 ng/mL, and at that point he was having increasing pain in the left lower back and left leg. MRI of the lumbar spine on 12/23/2018 showed significant degenerative changes which included moderate central canal stenosis and foraminal narrowing at multiple levels. Also noted was moderate left hydronephrosis with ureterectasis extending into the pelvis. Further evaluation with CT abdomen/pelvis on 01/03/2019 showed evidence of left ureteropelvic junction mass causing left ureterectasis and hydronephrosis. A left side presacral elongated soft tissue mass was noted, possibly of sacral nerve root origin, with the reported differential including schwannoma, neurofibroma, or perineural spread of neoplasm. He was referred to Dr. Puckett, and on 01/20/2019 he underwent cystoscopy and left ureteroscopy with biopsy of ureteral mass and with placement of left ureteral stent. Pathology showed fibrous tissue with chronic inflammation. There was no malignancy identified. As he appeared to be showing significant disease progression, he then began treatment with enzalutamide 160 mg daily in February 2019. He did show significant biochemical response with repeat PSA on 03/21/2019 decreasing to 3.95 ng/mL. He continued androgen deprivation with Zoladex together with enzalutamide 160 mg daily, which he appeared to be tolerating well. On 06/13/2019 he underwent cystoscopy with replacement of his left ureteral stent. The distal ureter was noted to have significant inflammatory changes, but no distinct papillary tumors were noted. As of his follow-up visit on 06/20/2019 there was further decrease in the PSA level to 0.36 ng/mL. He continued treatment with Zoladex in combination with enzalutamide. His other medical illnesses include hypertension, dyslipidemia, and coronary artery disease. He has degenerative disease of the spine. He has a long history of smoking, but had cut down to less than 1 pack of cigarettes daily. INTERIM HISTORY: He is seen for a scheduled visit. He continues to have fairly limited activity. He is able to ambulate with a walker. ECOG score is 2. He has good appetite. He has not had fever. He still has hot flashes, but they are tolerable. He recently had another epidural injection, this time on the right side. It did not seem to help as much. He has not had sore mouth or throat. He has a smoker's cough. He does not complain of shortness of breath or chest pain. He has no GI/ complaints other than frequent urination. He continues to have pain in his lower back and right above his hips on both sides. He does not complain of headache. He has lightheadedness if he gets up real fast, he also feels unsteady on his feet. He has no numbness/paresthesia or other focal neurologic symptoms. Medications: AmLODIPine Besylate 1 (5 mg) Tablet Oral daily, Aspirin 1 (81 mg) Tablet Oral daily, Atorvastatin Calcium (10 mg) Tablet Oral daily, Carvedilol 1 Tablet (of 6.25 mg) Oral b.i.d., Enzalutamide 4 Capsule (of 40 mg) Oral daily, gabapentin 1 Capsule (of 300 mg) Tablet t.i.d., Garlic 2 Capsule Oral daily, Hydrocodone-Acetaminophen 1 Tablet (of 5-325 mg) Oral q 8 hours PRN, Lisinopril 1 (10 mg) Tablet Oral daily, Plavix 1 (75 mg) Tablet Oral daily, Stool Softener 1 Tablet (of 100 mg) Oral daily, Triamterene-HCTZ 0.5 (37.5-25 mg) Tablet Oral daily, Venlafaxine HCl ER 1 Capsule (of 75 mg) Capsule SR 24 HR Oral daily Allergies: No Known Allergies. Vital Signs: Performed on Jul 08, 2021 13:18 Height - 72.00 in Weight - 235 lbs (LOW) BSA - 2.28 sq.m BMI - 31.87 (HIGH) Temperature - 96.0 F (LOW) Pulse - 55 /min (LOW) Respiration - 18 /min BP - 125/80 mm(hg) O2 Sat - 93 % (LOW) Pain - 0 Fatigue - 5 Physical Examination: Constitutional - He appears somewhat weak generally, Eyes - Sclerae nonicteric. Conjunctivae clear, ENMT - No lesions noted in the oral cavity, Hematologic/Lymphatic - No cervical, clavicular, or axillary adenopathy, Respiratory - Lungs sound clear with diminished air movement bilaterally, Cardiovascular - Heart rhythm is regular. There is no murmur, gallop, or rub noted, Abdomen - Mildly distended. Liver and spleen are not enlarged. There is no abdominal mass or ascites noted and there is no inguinal adenopathy, Extremities - There is mild lower extremity edema. His legs and feet are cool to touch. I am not able to palpate pedal pulses. He has chronic purpura, Neurologic - No focal neurologic deficits noted. Lab/Imaging: Test performed on Jul 08, 2021 11:35 WBC 6.8 10 3/uL RBC 3.99 10 6/uL HGB 13.5 g/dL HCT 40.9 % MCV 102.5 fl MCH 33.8 pg MCHC 33.0 g/dL RDW 13.7 % Platelet Count 207 10 3/cmm MPV 11.4 fL Neutrophils 3.97 10 3/uL Lymphocytes 1.7 10 3/uL Monocytes 0.6 10 3/uL Eosinophils 0.4 10 3/uL Basophils 0.0 10 3/uL Neutrophil % 58.4 % Lymphocyte % 25.1 % Monocyte % 9.1 % Eosinophil % 6.5 % Basophils % 0.6 % NRBC % 0 % Test performed on Jul 08, 2021 11:33 Sodium 138 mmol/L Testosterone, Total 6.2 ng/dL Potassium 4.1 mmol/L Chloride 103 mmol/L CO2 24 mmol/L Anion Gap 15.1 BUN 16 mg/dL Creatinine 0.8 mg/dL Cr Clearance (Est) 114.74 mL/min Glucose 122 mg/dL Osmolality - Calculated 288 mOsm/kg Calcium 8.7 mg/dL Protein, Total 6.4 g/dL Albumin 3.7 g/dL Globulin 2.7 g/dL Bilirubin, Total 0.5 mg/dL ALT (SGPT) 10 U/L AST (SGOT) 13 U/L Alkaline Phosphatase 65 IU/L PSA 0.086 ng/mL Problem List: 1. Constantino 5 adenocarcinoma of the prostate, early stage at initial diagnosis in 1999 and treated with radical prostatectomy. He presented with castration sensitive stage IV, metastatic disease in the bone in May of 2014 with PSA 81.2. 2. Hypertension. 3. Dyslipidemia. 4. Coronary artery disease. 5. Degenerative disease of the spine. Problems Addressed with this Encounter and Plan: 1. Patient with stage [place] 5 prostate cancer, early stage at initial diagnosis in 1999 and treated with radical prostatectomy. He presented with castration sensitive stage IV, metastatic disease in the bone in May of 2014 with PSA 81.2. Androgen deprivation therapy was initiated on 05/08/14 with Zoladex and 2 weeks of bicalutamide. He has had a good clinical response with PSA walter of 0.25 ng/mL on 08/27/2015. As of his follow-up visit in July 2017, his PSA level had increased just slightly, to 5.93 ng/mL. It then continued to increase gradually, to 8.62 ng/mL in September and to 12.90 ng/mL in December. At that point he had developed significant back pain. He continued androgen deprivation therapy with Zoladex, but he did have further evaluation with bone scan and subsequently with CT of the lumbar spine. Based on those results, it appeared that his pain was due to underlying degenerative disease, as there was no obvious metastatic involvement noted. As of his follow-up visit in December 2018 there was further increase in the PSA level to 20.93 ng/mL. MRI of the lumbar spine did show significant degenerative changes, but that study also showed evidence of left hydronephrosis. Further evaluation with CT abdomen/pelvison 01/03/2019 showed evidence of left ureteropelvic junction mass with associated left ureterectasis and hydronephrosis. Also noted was a left side presacral elongated soft tissue mass felt to be possibly of sacral nerve root origin. On 01/20/2019 he underwent cystoscopy and left ureteroscopy with biopsy of left ureteral mass and with placement of left ureteral stent. The biopsy showed no evidence of malignancy. As of February 2019 there was further increase in the PSA level to 24.56 ng/mL. As he did appeared to be showing symptomatic disease progression, he then started treatment with enzalutamide 160 mg daily. He reported significant improvement in his left lower back pain following placement of the ureteral stent. He also had a significant biochemical response to the enzalutamide with repeat PSA on 03/21/2019 decreasing to 3.95 ng/mL. At that point he appeared to be tolerating it well, and he continued the enzalutamide together with Zoladex. During followup he has continued to tolerate treatment with acceptable side effects. He has had a very good resposne with his PSA level walter at 0.030 ng/mL. He current PSA has increased slightly, to 0.086 ng/mL. The clinical significance of that change is uncertain. For now he will continue androgen deprivation with Zoladex 10.8 mg by subcutaneous injection together with enzalutamide 160 mg daily. He will be scheduled for a followup visit in 3 months. 2. He has chronic back pain which appears to be due to the underlying degenerative disease. He has had some improvement with epidural steroid injections. His pain has otherwise been managed adequately with hydrocodone/APAP. 3. He is at high risk for osteopenia/osteoporosis due to his androgen deprivation therapy. He has been on treatment with Prolia for maintenance of bone health. 4. He has physical findings which are suspicious for peripheral arterial disease, and he will now be scheduled for arterial Doppler studies. Signed By: Paul Francisco M.D. <<Signature on File>>
== END 2021-07-08 11:19 | disposition home or self-care (01) ==
LOC: ONCMED 11:23
PROVIDERS: PCP Family Medicine; Visit Provider Internal Medicine Medical Oncology
DX: C61 Malignant neoplasm of prostate (principal); C79.51 Secondary malignant neoplasm of bone; I10 Essential (primary) hypertension; M51.36 Other intervertebral disc degeneration, lumbar region; M85.80 Other specified disorders of bone density and structure, unspecified site; M81.0 Age-related osteoporosis without current pathological fracture; I73.9 Peripheral vascular disease, unspecified; Z79.899 Other long term (current) drug therapy; Z79.818 Long term (current) use of other agents affecting estrogen receptors and estrogen levels
CPT/HCPCS: 36415; 80053; 84153; 84403; 85025; 96372; 96402; 99215; J0897; J9202

== ENCOUNTER 2021-07-16 08:26 | Outpatient (CLI) | payer MEDICARE, OTHER, SELFPAY ==
--- NOTE | 2021-07-16 08:32 | USCV_ITS ---
Mack Nash Age: 80 Gender: M : 1940 Exam Date: 07/16/2021 08:51 Ordering Phys: Paul Francisco MD Technologist: DARON Exam Location: [facility] [place] Indication: Long-term smoker, continues smoking. No DM. Patient has considerable difficulty ambulating, and has for a long while, due to back pain. His feet are consistently cold. Risk Factors: Long-term smoker, continues smoking. No DM. Patient has considerable difficulty ambulating, and has for Long-term smoker, continues smoking. No DM. Previous Vascular Surgery: None in the extremities, although patient has history of cardiac stenting. RIGHT LEFT BP: 124.0 / BP: 135.0/ 0 0 Waveform Velocity (cm/s) Velocity (cm/s) Waveform Biphasic 147.9 Iliac Prox 112.8 Biphasic Biphasic 124.1 Iliac Mid 130.1 Biphasic Biphasic Iliac Distal Biphasic 110.9 75.2 Biphasic 59.0 WATER USE INSPECTOR 71.5 Biphasic Biphasic 62.9 SFA Prox 66.0 Biphasic Biphasic 45.8 SFA Mid 64.5 Biphasic Biphasic 27.3 SFA Dist 34.2 Biphasic Biphasic 33.8 POP 30.3 Monophasic Monophasic 14.8 BUSINESS ANALYSIS ANALYST 19.4 Monophasic Monophasic 19.4 DPA 30.3 Biphasic 0.7 GODWIN 0.8 FINDINGS Mild to moderate diffuse plaques in the iliac and femoral arteries bilaterally Abnormal resting GODWIN of 0.7 on the right side and 0.8 on the left side. Retrograde flow was noted in the proximal segment of the posterior tibial artery on the right side CONCLUSIONS Abnormal resting ABIs bilaterally, suggestive of moderate peripheral arterial disease Some features of high-grade stenosis in the posttibial artery on the right side Consider exercise GODWIN, to better evaluate the functional significance. Dr Rinku Reyes MD [facility] (Electronically Signed) Final Date: 16 July 2021 13:38 S
== END 2021-07-16 08:27 | disposition home or self-care (01) ==
LOC: RAD 08:28
PROVIDERS: PCP Family Medicine; Visit Provider Internal Medicine Medical Oncology
DX: C61 Malignant neoplasm of prostate (principal)
CPT/HCPCS: 93925

== ENCOUNTER → 2021-07-18 12:47 | Outpatient (BNVA) | payer MEDICARE, OTHER, SELFPAY | PROVIDERS: PCP Family Medicine; Visit Provider Anesthesiology Pain Medicine | DX: M48.062 Spinal stenosis, lumbar region with neurogenic claudication (principal); M47.816 Spondylosis without myelopathy or radiculopathy, lumbar region; M54.16 Radiculopathy, lumbar region; M51.36 Other intervertebral disc degeneration, lumbar region; M46.00 Spinal enthesopathy, site unspecified; M79.604 Pain in right leg; M79.605 Pain in left leg; F17.200 Nicotine dependence, unspecified, uncomplicated; Z79.891 Long term (current) use of opiate analgesic | CPT/HCPCS: 99214 ==

== ENCOUNTER 2021-08-06 12:14 | Outpatient (CLI) | payer MEDICARE, OTHER, SELFPAY ==
[2021-08-06 12:35] VITALS: BP 134/70; PULSE 75; RESP 20; TEMP 36.2; O2SAT 98
== END 2021-08-06 12:15 | disposition home or self-care (01) ==
LOC: ONCMED 12:18
PROVIDERS: PCP Family Medicine; Visit Provider Internal Medicine Medical Oncology
DX: C61 Malignant neoplasm of prostate (principal); C79.51 Secondary malignant neoplasm of bone; Z79.899 Other long term (current) drug therapy
CPT/HCPCS: 96372

== ENCOUNTER 2021-10-07 09:48 | Outpatient (CLI) | payer MEDICARE, OTHER, SELFPAY ==
[2021-10-07 10:43] LABS: Basophils % 0.4 %; Eosinophils # 0.3 10^3/uL (0.0-0.8); Eosinophils % 4.6 %; Hematocrit 43.3 % (42.0-52.0); Lymphocytes # 1.7 10^3/uL (0.8-4.8); Lymphocytes % 24.8 %; Mean Corpuscular HGB Conc 32.3 g/dL (30.0-36.0); Mean Corpuscular Hemoglobin 33.5 pg (28.0-34.0); Mean Corpuscular Volume 103.6 fl (80-94); Mean Platelet Volume 11.9 fL (7.4-10.4); Monocytes # 0.9 10^3/uL (0.2-0.9); Monocytes % 12.9 %; Neutrophils # 3.98 10^3/uL (1.8-7.7); Neutrophils % 57.2 %; Nucleated Red Blood Cells % 0 %; Platelet Count 197 10^3/cmm (130-400); Red Blood Count 4.18 10^6/uL (4.1-5.3); Red Cell Distribution Width 13.3 % (12.1-15.1)
[2021-10-07 10:58] LABS: Alanine Aminotransferase 13 U/L (0-41); Alkaline Phosphatase 58 IU/L (40-130); Anion Gap 13.5 (5-19); Aspartate Amino Transferase 16 U/L (0-40); Blood Urea Nitrogen 17 mg/dL (8-23); Calcium 9.2 mg/dL (8.5-10.5); Carbon Dioxide 25 mmol/L (22-29); Chloride 99 mmol/L (98-107); Globulin 3.2 g/dL (1.3-4.6); Glucose 107 mg/dL (65-115); Osmolality Calculated 278 mOsm/kg (285-295); Potassium 4.5 mmol/L (3.5-5.1); Prostate Specific Antigen 0.263 ng/mL (0-4); Sodium 133 mmol/L (136-145); Total Bilirubin 0.6 mg/dL (0.15-1.2); Total Protein 7.2 g/dL (6.6-8.7)
[2021-10-07] MEDS: lidocaine 1% INJ 20 mL INJECTION (12:00)
[2021-10-07 12:05] LABS: Testosterone Total 7.4 ng/dL (193-740)
[2021-10-07] MEDS: goserelin acetate 10.8 mg Implant SUBCUT (12:10)
--- NOTE | 2021-10-07 14:17 | ONC FU_ITS ---
Yadira Pratt Progress Note Patient: Mack Nash Unit #: [id number]: 1940 Dicatated By: Yadira Pratt N.P.Date of Visit:Oct 07, 2021 Onc MED Follow-up/Prog Note Chief Complaint: Prostate cancer. History of Present Illness: This is 80 year-old man with the stage IV prostatic adenocarcinoma, metastatic to bone. He has a history of coronary artery disease, smoking and alcohol consumption. He was diagnosed with an early stage intermediate risk prostatic adenocarcinoma in 1999, Constantino score 5, PSA 20.6. He underwent a primary treatment with radical retropubic prostatectomy. Reportedly, the patient had recurrent detectable PSA within one year. In October of 2012 PSA measured 10.7, with further increase to 37.7 in October 2013 and further increase to 81.2 in May 2014. The bone scan on 05/08/2014 showed increased activity in the right superior ramus, right acetabulum, and right femoral neck. The patient began treatment with Zoladex and 2 weeks therapy with Casodex on 05/08/2014. He was first seen by Dr. Shah on 07/03/2014. He had no pain associated with the right leg, hip, or pelvis. CT of the chest/ abdomen/pelvis on 07/04/2014 showed no evidence of distal metastatic disease. His DEXA scan on 07/10/2014 was normal. An MRI on 08/29/2014 showed a right hip lesion extending to the cortex. He completed right hip radiation treatment on 10/13/2014. He established care with orthopedic surgeon at [facility]. He continued his androgen deprivation therapy and during subsequent follow-up his PSA level had started to increase gradually. As of 03/27/2017 it was up to 4.62 ng/mL. As of his follow-up visit on 12/16/2017 there was further increase in the PSA level to 12.90 ng/mL. He was reporting increased back pain with radiation to the left leg. He continued androgen deprivation therapy with Zoladex, but he also had further evaluation with bone scan and subsequently with CT of the lumbar spine. There was no evidence of metastatic disease on the bone scan. He lumbar spine CT did show an L4 compression fracture estimated at 30% without retropulsion. There were significant degenerative changes with moderate central canal stenosis at L2-3 and at L3-4 and there was moderate to severe foraminal stenosis at multiple sites. As of 03/18/2018 the PSA had further increased to 13.90 ng/mL. In the absence of symptomatic disease progression, he continued androgen deprivation with Zoladex. By December 2018 the PSA had further increased to 20.93 ng/mL, and at that point he was having increasing pain in the left lower back and left leg. MRI of the lumbar spine on 12/23/2018 showed significant degenerative changes which included moderate central canal stenosis and foraminal narrowing at multiple levels. Also noted was moderate left hydronephrosis with ureterectasis extending into the pelvis. Further evaluation with CT abdomen/pelvis on 01/03/2019 showed evidence of left ureteropelvic junction mass causing left ureterectasis and hydronephrosis. A left side presacral elongated soft tissue mass was noted, possibly of sacral nerve root origin, with the reported differential including schwannoma, neurofibroma, or perineural spread of neoplasm. He was referred to Dr. Puckett, and on 01/20/2019 he underwent cystoscopy and left ureteroscopy with biopsy of ureteral mass and with placement of left ureteral stent. Pathology showed fibrous tissue with chronic inflammation. There was no malignancy identified. As he appeared to be showing significant disease progression, he then began treatment with enzalutamide 160 mg daily in February 2019. He did show significant biochemical response with repeat PSA on 03/21/2019 decreasing to 3.95 ng/mL. He continued androgen deprivation with Zoladex together with enzalutamide 160 mg daily, which he appeared to be tolerating well. On 06/13/2019 he underwent cystoscopy with replacement of his left ureteral stent. The distal ureter was noted to have significant inflammatory changes, but no distinct papillary tumors were noted. As of his follow-up visit on 06/20/2019 there was further decrease in the PSA level to 0.36 ng/mL. He continued treatment with Zoladex in combination with enzalutamide. His other medical illnesses include hypertension, dyslipidemia, and coronary artery disease. He has degenerative disease of the spine. He has a long history of smoking, but had cut down to less than 1 pack of cigarettes daily. INTERIM HISTORY: Patient presents for follow-up accompanied by his . He states other than having moderate fatigue he is feeling pretty good. His appetite is good. He denies fever, chills, night sweats. No sinus drainage or sore throat. No shortness of breath, cough, chest pain. No GI or problems. He does have generalized muscle weakness and requires a walker for ambulation. He denies headache or dizziness. Review Of Symptoms: See above. Past Medical History: Coronary artery disease Hypertension Past Surgical History: Covid vaccine #3 Hrt stent 2006 Knee surgery Prostatectomy Covid #2 in 2020 Covid #1 in 2020 Stent placment in the ureter in 2018 Allergies: No Known Allergies. Medications: AmLODIPine Besylate 1 (5 mg) Tablet Oral daily Aspirin 1 (81 mg) Tablet Oral daily Atorvastatin Calcium (10 mg) Tablet Oral daily Carvedilol 1 Tablet (of 6.25 mg) Oral b.i.d. Enzalutamide 4 Capsule (of 40 mg) Oral daily gabapentin 1 Capsule (of 300 mg) Tablet t.i.d. Garlic 2 Capsule Oral daily Hydrocodone-Acetaminophen 1 Tablet (of 5-325 mg) Oral q 8 hours PRN Lisinopril 1 (10 mg) Tablet Oral daily Plavix 1 (75 mg) Tablet Oral daily Stool Softener 1 Tablet (of 100 mg) Oral daily Triamterene-HCTZ 0.5 (37.5-25 mg) Tablet Oral daily Venlafaxine HCl ER 1 Capsule (of 75 mg) Capsule SR 24 HR Oral daily Family History: Mr. Nash's mother at age 78. Mr. Nash's father at age 65. Mother breast cancer age: Sister breast cancer age:. Social History: Mr. Nash is and he is retired. He is a daily smoker who has smoked 0.5 packs/day for 62 years. He is an active drinker.He consumes 1 drink/day 7 days/week. Mr. Nash reports contact with hazardous material. Mr. Nash reports the following support systems: lives with spouse, significant other, family, or friends, lives in own house, supportive family/friends willing to assist with needs, and adequate transportation available for expected visits. His diet consists of regular meals. He indicates his activity level as: daily activities. Patient is currently smoking and plans on not quitiing. Pt states that he drinks 6 oz whiskey daily. Physical Examination: Performed on Oct 07, 2021 11:26: Height - 72.00 in, Weight - 234 lbs (LOW), BSA - 2.28 sq.m, BMI - 31.74 (HIGH), Temperature - 97.8 F (LOW), Pulse - 65 /min, Respiration - 20 /min, BP - 151/71 mm(hg) (HIGH), O2 Sat - 99 %, Pain - 0, and Fatigue - 0. Performance Status: 2 - Ambulatory/capable of all self-care, unable to perform any work activities. Up and about more than 50% of waking hours. (ECOG) Constitutional Alert, cooperative, oriented. Mood and affect appropriate. Appears close to chronological age. Well nourished. Well developed. Head Normocephalic; no scars. Respiratory Lungs are clear to auscultation without rhonchi or wheezing. Cardiovascular Regular rate and rhythm of heart without murmurs, gallops or rubs. Abdomen Non-tender, non-distended, no masses, ascites or hepatosplenomegaly. Good bowel sounds. No guarding or rebound tenderness. Extremities No edema Musculoskeletal Generalized weakness Psychiatric Alert and oriented times three. Coherent speech. Verbalizes understanding of our discussions today. Laboratory: Test performed on Oct 07, 2021 10:05 Sodium 133 mmol/L Testosterone, Total 7.4 ng/dL Potassium 4.5 mmol/L Chloride 99 mmol/L CO2 25 mmol/L Anion Gap 13.5 BUN 17 mg/dL Creatinine 0.8 mg/dL Cr Clearance (Est) 114.25 mL/min Glucose 107 mg/dL Osmolality - Calculated 278 mOsm/kg Calcium 9.2 mg/dL Protein, Total 7.2 g/dL Albumin 4.0 g/dL Globulin 3.2 g/dL Bilirubin, Total 0.6 mg/dL ALT (SGPT) 13 U/L AST (SGOT) 16 U/L Alkaline Phosphatase 58 IU/L WBC 7.0 10 3/uL RBC 4.18 10 6/uL HGB 14.0 g/dL HCT 43.3 % MCV 103.6 fl MCH 33.5 pg MCHC 32.3 g/dL RDW 13.3 % Platelet Count 197 10 3/cmm MPV 11.9 fL Neutrophils 3.98 10 3/uL Lymphocytes 1.7 10 3/uL Monocytes 0.9 10 3/uL Eosinophils 0.3 10 3/uL Basophils 0.0 10 3/uL Neutrophil % 57.2 % Lymphocyte % 24.8 % Monocyte % 12.9 % Eosinophil % 4.6 % Basophils % 0.4 % NRBC % 0 % PSA 0.263 ng/mL Impression: 1. Constantino 5 adenocarcinoma of the prostate, early stage at initial diagnosis in 1999 and treated with radical prostatectomy. He presented with castration sensitive stage IV, metastatic disease in the bone in May of 2014 with PSA 81.2. 2. Hypertension. 3. Dyslipidemia. 4. Coronary artery disease. 5. Degenerative disease of the spine. Plan: 1. Patient with stage [place] 5 prostate cancer, early stage at initial diagnosis in 1999 and treated with radical prostatectomy. He presented with castration sensitive stage IV, metastatic disease in the bone in May of 2014 with PSA 81.2. Androgen deprivation therapy was initiated on 05/08/14 with Zoladex and 2 weeks of bicalutamide. He has had a good clinical response with PSA walter of 0.25 ng/mL on 08/27/2015. As of his follow-up visit in July 2017, his PSA level had increased just slightly, to 5.93 ng/mL. It then continued to increase gradually, to 8.62 ng/mL in September and to 12.90 ng/mL in December. At that point he had developed significant back pain. He continued androgen deprivation therapy with Zoladex, but he did have further evaluation with bone scan and subsequently with CT of the lumbar spine. Based on those results, it appeared that his pain was due to underlying degenerative disease, as there was no obvious metastatic involvement noted. As of his follow-up visit in December 2018 there was further increase in the PSA level to 20.93 ng/mL. MRI of the lumbar spine did show significant degenerative changes, but that study also showed evidence of left hydronephrosis. Further evaluation with CT abdomen/pelvison 01/03/2019 showed evidence of left ureteropelvic junction mass with associated left ureterectasis and hydronephrosis. Also noted was a left side presacral elongated soft tissue mass felt to be possibly of sacral nerve root origin. On 01/20/2019 he underwent cystoscopy and left ureteroscopy with biopsy of left ureteral mass and with placement of left ureteral stent. The biopsy showed no evidence of malignancy. As of February 2019 there was further increase in the PSA level to 24.56 ng/mL. As he did appeared to be showing symptomatic disease progression, he then started treatment with enzalutamide 160 mg daily. He reported significant improvement in his left lower back pain following placement of the ureteral stent. He also had a significant biochemical response to the enzalutamide with repeat PSA on 03/21/2019 decreasing to 3.95 ng/mL. At that point he appeared to be tolerating it well, and he continued the enzalutamide together with Zoladex. During followup he has continued to tolerate treatment with acceptable side effects. He has had a very good resposne with his PSA level walter at 0.030 ng/mL. Patient presents today for follow-up. His PSA has elevated from 0.086 at last visit to 0.263 today. Uncertain of the significance of this increase but we will continue to monitor. He will continue the Zoladex injections every 3 months which next dose is due today. He will also continue his enzalutamide 160 mg p.o. daily. He will follow-up in 3 months with CBC, CMP and PSA. 2. He has chronic back pain which appears to be due to the underlying degenerative disease. He has had some improvement with epidural steroid injections. His pain has otherwise been managed adequately with hydrocodone/APAP. 3. He is at high risk for osteopenia/osteoporosis due to his androgen deprivation therapy. He has been on treatment with Prolia for maintenance of bone health. 4. He has three suspicious skin lesions on his back and would like referral to dermatology for further evaluation. Signed By: Yadira Pratt N.P. <<Signature on File>>
== END 2021-10-07 09:49 | disposition home or self-care (01) ==
PROVIDERS: PCP Family Medicine; Visit Provider Nurse Practitioner Family
DX: C61 Malignant neoplasm of prostate (principal); C79.51 Secondary malignant neoplasm of bone; I10 Essential (primary) hypertension; E78.5 Hyperlipidemia, unspecified; I25.10 Atherosclerotic heart disease of native coronary artery without angina pectoris; M47.9 Spondylosis, unspecified; Z79.818 Long term (current) use of other agents affecting estrogen receptors and estrogen levels; Z79.899 Other long term (current) drug therapy
CPT/HCPCS: 36415; 80053; 84153; 84403; 85025; 96372; 96402; 99215; J9202

== ENCOUNTER 2021-10-17 12:51 | Outpatient (CLI) | payer MEDICARE, OTHER, SELFPAY ==
--- NOTE | 2021-10-17 14:15 | XR_ITS ---
WS: [id number] KUB, AP view, 10/17/2021 Clinical Data: STENT Comparison: KUB, 06/04/2020. Findings: No abnormal intraabdominal masses or calcifications are seen. There is no dilatated small bowel or ev idence of obstruction. There is a left ureteral stent in good position. There are vascular calcifications of the abdominal a titi as distal arteries. There are surgical clips in the region the prostate and the inguinal regions . There is a dextroscoliosis lumbar spine with osteoarthritis. XR/XR KUB [id number] Impression: 1. Left ureteral stent in good position. 2. Surgical clips in the pelvis from prostate surgery.
== END 2021-10-17 12:52 | disposition home or self-care (01) ==
LOC: RAD 12:58
PROVIDERS: PCP Family Medicine; Visit Provider Urology
DX: Z96.0 Presence of urogenital implants (principal); N13.5 Crossing vessel and stricture of ureter without hydronephrosis
CPT/HCPCS: 74018; 81003

== ENCOUNTER 2021-10-28 05:46 | Day surgery (SDC) | payer MEDICARE, OTHER, SELFPAY ==
[2021-10-25 12:54] VITALS: BMI 31.4
--- NOTE | 2021-10-28 05:55 | XR_ITS ---
WS: [id number] KUB, AP view, 10/28/2021 Clinical Data: preop Comparison: KUB, 10/17/2021. Findings: No abnormal intraabdominal masses or calcifications are seen. There is no dilatated small bowel or ev idence of obstruction. The left ureteral stent remains in good position. There is vascular calcification of the abdominal aorta and its distal branches. There are pelvic clip s from prostate surgery. There is a dextroscoliosis with osteoarthritis of the lumbar spine. XR/XR KUB [id number] Impression: Left ureteral stent.
--- NOTE | 2021-10-28 06:04 | ECG_ITS ---
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 Measurements Intervals [place] Rate: 54 P: 66 [place]: 165 QRS: 62 QRSD: 101 T: 83 QT: 442 QTc: 422 Interpretive Statements SINUS BRADYCARDIA WITH OCCASIONAL SUPRAVENTRICULAR PREMATURE COMPLEXES POSSIBLE LATERAL MYOCARDIAL INFARCTION , OF INDETERMINATE AGE [30 ms Q WAVE IN I/aVL/V5/V6] Compared to ECG 12/08/2019 12:10:27 Myocardial infarct finding now present T-wave abnormality no longer present Electronically Signed On 10-28-2021 22:14:00 CDT by Casey Marshall M.D. [id number]
--- NOTE | 2021-10-28 06:21 | ANES.PREANE2 ---
Pre-Anesthetic Assessment Height/Weight: Height 1.8 m Weight 102.058 kg Preop Diagnosis: Retained left ureteral stent Operation Date: 10/28/21 07:00 Proposed Procedures p Cystoscopy [id number]/z96.0/n13.5(Not Applicable) - Bill Puckett MD s Ureteral Stent Exchange(Left) - Bill Puckett MD s ESWL(Left) - Bill Puckett MD Familial anesthetic complications: None Was Beta Anna taken within 24 hours: Yes Last intake: 10/27/21 Social Tobacco and No alcohol Exam alert, oriented x 3, clear to auscultation bilaterally and regular rate & rhythm Airway Submandibular: within normal limits Cervical ROM: within normal limits Mallampati: Class II Dentition: chipped Comments: Comments: Missing teeth Pulmonary Chronic Obstructive Pulmonary Disease and Exertional Dyspnea CV/HEM Coronary Artery Disease and Hypertension METS < 4 Stress 04/2020 CONCLUSION: Please note due to baseline abnormality of the EKG specificity and sensitivity of the EKG portion of LexiScan MIBI stress test will be low 1. EKG not suggestive of ischemia 2. Lexiscan injection unremarkable. 3. Perfusion scan will be documented separately. Cath 2019 Conclusions ? 1. There is mild coronary artery disease with two vessel disease. ? 2. Mild left ventricular systolic dysfunction. Ejection fraction of 40%. ? 3. Indication for left heart cath: Worsening of shortness of breath and chest pain despite of optimization of medicine suspicious for unstable angina. Nuc Med 2020 ?IMPRESSIONS ?Large area of old myocardial infarction versus scarring noted in the inferior ?and lateral wall.? Medium-sized area of moderate to severe ischemia noted in ?mid to distal anterior and anterolateral wall suggestive of possible lesion in ?the LAD territory.? EKG segment will be documented separately. TTE CONCLUSIONS ?1-Normal left ventricular cavity size. Normal left ventricular ?systolic function. No regional wall motion abnormalities. Left ?ventricular ejection fraction is estimated at 55 %. Grade I/IV ?diastolic dysfunction (abnormal relaxation filling pattern), ?normal to mildly elevated filling pressures. ?2-There is no pericardial effusion. ?3-No significant valve abnormalities. ?4-Pulmonary artery systolic pressure is within normal limits. ?5-Right atrial pressure is around 5 mm of mercury. ?6-There are no prior echocardiogram studies to compare. Ureteral obstruction Ureteral stent Hepatic None reported GI None reported Metabolic None reported Musc/skel Osteoarthritis/DJD Neuropsych None reported Anesthetic Plan ASA status: 3 (80 year old male w/ CAD s/p stent, THORPE, committed smoking habit, htn, and DDD. ) Anesthesia: Anesthesia Evaluation and General Other: We discussed risk and benefits of general anesthesia including PONV, sore throat (sometimes severe), corneal abrasion, positioning and peripheral nerve injuries, life threatening allergic reaction, post operative ICU admission requiring prolonged intubation, stroke, heart attack, , and rare incidences of recall. Patient consents to proceed with general anesthesia. Risk of > 500 ml blood loss (7ml/kg in children): No Medications/Allergies Home Medications Medication Instructions Recorded Confirmed Last Taken Type amlodipine 5 mg tablet 5 mg PO BEDTIME 08/23/19 10/25/21 1 Day Ago History ~06/10/20 aspirin 81 mg tablet,delayed 81 mg PO DAILY 08/23/19 10/25/21 10/22/21 History release (Adult Low Dose Aspirin) atorvastatin 10 mg tablet 10 mg PO QMWF 08/23/19 10/25/21 06/08/20 History carvedilol 6.25 mg tablet 6.25 mg PO DAILY 08/23/19 10/25/21 1 Day Ago History ~06/10/20 docusate sodium 100 mg capsule 100 mg PO BEDTIME 08/23/19 10/25/21 1 Day Ago History ~06/10/20 hydrocodone 5 mg-acetaminophen 325 1 tab PO Q8H PRN 08/23/19 10/25/21 06/11/20 History mg tablet ([place]) 0600 triamterene 37.5 0.5 cap PO DAILY 08/23/19 10/25/21 1 Day Ago History mg-hydrochlorothiazide 25 mg ~06/10/20 capsule venlafaxine 75 mg tablet 75 mg PO DAILY 08/23/19 10/25/21 06/11/20 History 0600 clopidogrel 75 mg tablet 75 mg PO DAILY 09/13/19 10/25/21 10/22/21 History enzalutamide 40 mg capsule (Xtandi) 160 mg PO DAILY 09/13/19 10/25/21 06/11/20 History 0600 multivitamin,gb-wqow-cnrpgzju 1 tab PO DAILY 07/24/20 10/25/21 Unknown History (Complete Multivitamin) gabapentin 100 mg capsule 100 mg PO BID cap 07/29/21 10/25/21 Unknown History lisinopril 10 mg tablet 10 mg PO BID tab 07/29/21 10/25/21 Unknown History Allergies Allergy/AdvReac Type Severity Reaction Status Date / Time No Known Allergies Allergy Verified 10/25/21 12:49 [facility] Anesthesia Medical History Acquired spondylolisthesis Coronary artery disease Essential hypertension Extrinsic ureteral obstruction Hyperlipidemia LDL goal <100 Intervertebral disc disorders with radiculopathy, 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 Prostate cancer metastatic to bone Retained ureteral stent Sacral mass Surgical History History of radical prostatectomy History of ureter stent left, 01/20/2019 Hx of heart artery stent Family History Mother , at age 83 Cancer breast and kidney Father , at age 60 Stroke Other Hypertension Social History Smoking and tobacco status: current every day smoker Alcohol intake: current Alcohol intake frequency: holidays/special occasions only Adopted: No Caregiver/support person: No Lives independently: No Household members: spouse Marital status: service: No Current occupational status: retired History of recent travel: No Current gender identity: Male Data Anesthesia : 10/28/21 06:44 10/28/21 06:44 Cardiac Studies: Echocardiogram Ultrasound 04/05/20 Sestamibi Stress Test (Cardiology) 05/02/20
[2021-10-28 06:32] VITALS: BP 138/68; PULSE 58; RESP 18; TEMP 36.1; O2SAT 99
--- NOTE | 2021-10-28 06:42 | P.HPUD_ITS ---
Surgery/Procedure H&P Update DATE OF PROCEDURE: October 28, 2021 DATE H&P PERFORMED: 10/17/21 H&P UPDATE INFORMATION: I have reviewed H&P completed within last 30 days, I have examined patient prior to procedure, No changes to prior documentation and H[place] [facility] date indicated PREOP DIAGNOSIS: Retained left ureteral stent PLANNED PROCEDURE: Operation Date: 10/28/21 07:00 Proposed Procedures p Cystoscopy [id number]/z96.0/n13.5(Not Applicable) - Bill Puckett MD s Ureteral Stent Exchange(Left) - Bill Puckett MD s ESWL(Left) - Bill Puckett MD
--- NOTE | 2021-10-28 06:49 | P.OP_ITS ---
Operative Report Date of procedure: October 28, 2021 Pre-op diagnosis: Retained LEFT ureteral stent with encrustation, left ureteral obstruction Post-op diagnosis: Retained LEFT ureteral stent with encrustation, left ureteral obstruction Procedure done: 1. Extracorporeal shockwave lithotripsy left ureteral stone 2. Cystoscopy, left ureteral stent exchange Implants: Left ureteral stent Specimens removed/disposition: Old encrusted left ureteral stent Pathology: None Surgeon: Italo Estimated blood loss: Minimal Urine output: Not measured Complications: None Findings: Stent treated with: Stent removed without difficulty after ESWL Brief History: Mr. Nash is a delightful 80-year-old white male with metastatic prostate cancer and ureteral obstruction from that. Left ureteral stent placed for chronic treatment of the ureteral obstruction. His last stent change was June 2020. He was scheduled for follow-up in roughly 6 months but due to other medical issues and COVID that visit was not kept. Was recently reevaluated in the clinic and stent change was scheduled with ESWL to the proximal encrusted end. Procedure: After routine preoperative evaluation examination and obtaining of informed consent he was taken to the operating suite on 10/28/2021 where general anesthesia was administered without difficulty after appropriate timeout was performed, SCDs confirmed to be functioning, preoperative antibiotics administered, beta-laura protocol confirmed. Positioned in supine position on the Dornier unit. Shockwave was initiated with the shock head positioned posteriorly and approximately 950 shocks were administered to the proximal end including curl and the proximal uretera component. No residual calcifications could be identified. Prepped and draped in usual sterile fashion in dorsolithotomy position paying careful attention to avoiding pressure points. 21 Prydeinig cystoscope with 30 degree lens was passed into the bladder without difficulty. The proximal end of the stent did show some encrustation and grasping forceps were used to clear the stent of the encrustation. A flexible tip guidewire was then passed next to the stent up the left ureter into the area of the renal pelvis. The stent was grasped with grasping forceps and gently withdrawn under fluoroscopic monitoring with good and early uncurling of the proximal end. A 6 Prydeinig by 26 cm double-pigtail stent was then advanced over the guidewire into appropriate position as confirmed via fluoroscopy and cystoscopy. The encrustation which had been cleared from the stent was then evacuated from the bladder and the procedure was completed after bladder was drained. He tolerated the procedure well without complications and was awakened in the operating room and returned to the recovery room in stable condition.
[2021-10-28 06:55] LABS: Basophils % 0.4 %; Eosinophils # 0.2 10^3/uL (0.0-0.8); Eosinophils % 2.8 %; Hematocrit 44.2 % (42.0-52.0); Hemoglobin 14.7 g/dL (11.7-16.6); Lymphocytes # 1.3 10^3/uL (0.8-4.8); Lymphocytes % 18.6 %; Mean Corpuscular HGB Conc 33.3 g/dL (30.0-36.0); Mean Corpuscular Hemoglobin 33.9 pg (28.0-34.0); Mean Corpuscular Volume 102.1 fl (80-94); Mean Platelet Volume 11.6 fL (7.4-10.4); Monocytes # 0.8 10^3/uL (0.2-0.9); Monocytes % 11.5 %; Neutrophils # 4.71 10^3/uL (1.8-7.7); Neutrophils % 66.3 %; Nucleated Red Blood Cells % 0 %; Platelet Count 233 10^3/cmm (130-400); Red Blood Count 4.33 10^6/uL (4.1-5.3); White Blood Count 7.1 10^3/uL (4.0-10.0)
[2021-10-28] MEDS: levofloxacin-dextrose 5 % 500 MG/100 ML PREMIX 100 MG IV (07:00)
[2021-10-28] MEDS: sodium chloride 0.9% 1,000 ML 30 ML IV (07:00)
[2021-10-28 07:15] LABS: Anion Gap 14.7 (5-19); Blood Urea Nitrogen 15 mg/dL (8-23); Calcium 8.4 mg/dL (8.5-10.5); Carbon Dioxide 26 mmol/L (22-29); Chloride 100 mmol/L (98-107); Creatinine Clr Calc Pharmacy 74.0583; Glucose 107 mg/dL (65-115); Osmolality Calculated 283 mOsm/kg (285-295); Potassium 4.7 mmol/L (3.5-5.1); Sodium 136 mmol/L (136-145)
[2021-10-28] MEDS: lidocaine 2% Urojet 20 mL TOPICAL (07:26)
[2021-10-28 08:01] VITALS: BP 176/99; PULSE 79; RESP 16; TEMP 36.2; O2SAT 97
[2021-10-28 08:05] VITALS: BP 184/100; PULSE 78; RESP 16; O2SAT 98
[2021-10-28 08:10] VITALS: BP 149/79; PULSE 72; RESP 18; O2SAT 99
[2021-10-28 08:15] VITALS: BP 157/86; PULSE 68; RESP 18; O2SAT 95
[2021-10-28 08:18] VITALS: BP 160/89; PULSE 65; RESP 18; TEMP 36.3; O2SAT 95
--- NOTE | 2021-10-28 14:43 | ANE.PACU2 ---
Inpatient post-anesthesia follow up: Airway intact: Yes Vital signs: Temperature 97.4 F Pulse Rate 65 Respiratory Rate 18 Blood Pressure 160/89 Pulse Oximetry 95 Oxygen Delivery Me thod Room Air Oxygen Flow Rate 6 Fraction of Inspir ed Oxygen Hydration adequate: Yes Nausea and vomiting: No Pain level: 2 Mental status: Baseline
== END 2021-10-28 09:00 | disposition home or self-care (01) ==
PROVIDERS: PCP Family Medicine; Visit Provider Urology
PROC: 0TJB8ZZ Inspection of Bladder, Via Natural or Artificial Opening Endoscopic (ICD-10-PCS; CPT 52000; principal; 2021-10-28 07:00)
PROC: (CPT 50590; 2021-10-28 07:00)
PROC: (CPT 50590; 2021-10-28 07:00)
DX: T83.192A Other mechanical complication of indwelling ureteral stent, initial encounter (principal); J44.9 Chronic obstructive pulmonary disease, unspecified; I25.10 Atherosclerotic heart disease of native coronary artery without angina pectoris; I10 Essential (primary) hypertension; M19.90 Unspecified osteoarthritis, unspecified site; Z95.5 Presence of coronary angioplasty implant and graft; Z79.82 Long term (current) use of aspirin; E78.5 Hyperlipidemia, unspecified; Z85.46 Personal history of malignant neoplasm of prostate; Z85.830 Personal history of malignant neoplasm of bone; F17.210 Nicotine dependence, cigarettes, uncomplicated
CPT/HCPCS: 50590; 52332; 36415; 74018; 80048; 85025; 93005; C2625; J0330; J1100; J1956; J2405; J2704; J3010; J3490; J7030

== ENCOUNTER 2022-01-08 15:00 | Oncology outpatient (recurring) (ONCR) | payer MEDICARE, OTHER, SELFPAY ==
[2022-01-07 10:58] LABS: Basophils % 0.5 %; Eosinophils # 0.2 10^3/uL (0.0-0.8); Eosinophils % 3.8 %; Hematocrit 40.5 % (42.0-52.0); Hemoglobin 13.5 g/dL (11.7-16.6); Lymphocytes % 30.9 %; Mean Corpuscular HGB Conc 33.3 g/dL (30.0-36.0); Mean Corpuscular Hemoglobin 34.3 pg (28.0-34.0); Mean Corpuscular Volume 102.8 fl (80-94); Mean Platelet Volume 12.1 fL (7.4-10.4); Monocytes # 0.8 10^3/uL (0.2-0.9); Neutrophils # 3.33 10^3/uL (1.8-7.7); Neutrophils % 52.5 %; Nucleated Red Blood Cells % 0 %; Platelet Count 230 10^3/cmm (130-400); Red Blood Count 3.94 10^6/uL (4.1-5.3); Red Cell Distribution Width 13.9 % (12.1-15.1); White Blood Count 6.3 10^3/uL (4.0-10.0)
[2022-01-07 11:23] LABS: Alanine Aminotransferase 11 U/L (0-41); Albumin Level 3.9 g/dL (3.5-5.2); Alkaline Phosphatase 69 IU/L (40-130); Blood Urea Nitrogen 22 mg/dL (8-23); Calcium 8.9 mg/dL (8.5-10.5); Carbon Dioxide 24 mmol/L (22-29); Chloride 101 mmol/L (98-107); Globulin 2.9 g/dL (1.3-4.6); Glucose 98 mg/dL (65-115); Osmolality Calculated 287 mOsm/kg (285-295); Prostate Specific Antigen 0.694 ng/mL (0-4); Sodium 137 mmol/L (136-145); Total Bilirubin 0.7 mg/dL (0.15-1.2); Total Protein 6.8 g/dL (6.6-8.7)
[2022-01-07 12:30] LABS: Anion Gap 16.5 (5-19); Aspartate Amino Transferase 16 U/L (0-40); Potassium 4.5 mmol/L (3.5-5.1)
[2022-01-08] MEDS: lidocaine 1% INJ 20 mL SUBCUT (15:15)
[2022-01-08] MEDS: denosumab 60 mg SDV SUBCUT (15:28)
[2022-01-08] MEDS: goserelin acetate 10.8 mg Implant SUBCUT (15:32)
== END 2022-02-02 23:59 | disposition home or self-care (01) ==
PROVIDERS: Nurse Practitioner Family; PCP Family Medicine; Visit Provider Internal Medicine Medical Oncology
DX: Z51.11 Encounter for antineoplastic chemotherapy (principal); C61 Malignant neoplasm of prostate; C79.51 Secondary malignant neoplasm of bone
CPT/HCPCS: 36415; 80053; 84153; 85025; 96372; 96402; 99214; J0897; J9202

== ENCOUNTER 2022-04-14 11:57 | Oncology outpatient (recurring) (ONCR) | payer MEDICARE, OTHER, SELFPAY ==
[2022-04-14 12:45] LABS: Basophils % 0.4 %; Eosinophils # 0.2 10^3/uL (0.0-0.8); Eosinophils % 2.7 %; Hematocrit 42.1 % (42.0-52.0); Lymphocytes # 1.7 10^3/uL (0.8-4.8); Lymphocytes % 25.6 %; Mean Corpuscular HGB Conc 33.3 g/dL (30.0-36.0); Mean Corpuscular Hemoglobin 34.9 pg (28.0-34.0); Mean Platelet Volume 11.7 fL (7.4-10.4); Monocytes # 0.7 10^3/uL (0.2-0.9); Monocytes % 10.3 %; Neutrophils # 4.06 10^3/uL (1.8-7.7); Neutrophils % 60.7 %; Nucleated Red Blood Cells % 0 %; Platelet Count 218 10^3/cmm (130-400); Red Blood Count 4.01 10^6/uL (4.1-5.3); Red Cell Distribution Width 12.9 % (12.1-15.1); White Blood Count 6.7 10^3/uL (4.0-10.0)
[2022-04-14 13:20] LABS: Alanine Aminotransferase 13 U/L (0-41); Albumin Level 3.7 g/dL (3.5-5.2); Alkaline Phosphatase 70 U/L (40-130); Anion Gap 15.3 (5-19); Aspartate Amino Transferase 14 U/L (0-40); Blood Urea Nitrogen 20 mg/dL (8-23); Calcium 9.1 mg/dL (8.5-10.5); Carbon Dioxide 26 mmol/L (22-29); Chloride 102 mmol/L (98-107); Glucose 112 mg/dL (65-115); Osmolality Calculated 291 mOsm/kg (285-295); Potassium 4.3 mmol/L (3.5-5.1); Prostate Specific Antigen 0.768 ng/mL (0-4); Sodium 139 mmol/L (136-145); Testosterone Total 8.8 ng/dL (193-740); Total Bilirubin 0.6 mg/dL (0.15-1.2); Total Protein 6.7 g/dL (6.6-8.7)
[2022-04-14] MEDS: leuprolide 22.5 mg Kit IM (14:18)
[2022-04-14 14:31] VITALS: BP 128/73; PULSE 68; RESP 18; TEMP 36.4; O2SAT 97
== END 2022-05-05 23:59 | disposition home or self-care (01) ==
PROVIDERS: PCP Family Medicine; Visit Provider Internal Medicine Medical Oncology
DX: C61 Malignant neoplasm of prostate; C79.51 Secondary malignant neoplasm of bone; F17.210 Nicotine dependence, cigarettes, uncomplicated; R11.0 Nausea; Z79.818 Long term (current) use of other agents affecting estrogen receptors and estrogen levels; Z79.899 Other long term (current) drug therapy
CPT/HCPCS: 36415; 80053; 84153; 84403; 85025; 96402; 99214; J9217

== ENCOUNTER → 2022-04-16 15:41 | Outpatient (BNVA) | payer MEDICARE, OTHER, SELFPAY | PROVIDERS: PCP Family Medicine; Visit Provider Internal Medicine | DX: I10 Essential (primary) hypertension (principal); I25.118 Atherosclerotic heart disease of native coronary artery with other forms of angina pectoris; F17.200 Nicotine dependence, unspecified, uncomplicated | CPT/HCPCS: 99214 ==

== ENCOUNTER 2022-05-16 10:19 | Outpatient (CLI) | payer MEDICARE, OTHER, SELFPAY ==
--- NOTE | 2022-05-16 10:31 | XRR_ITS ---
PROCEDURE INFORMATION: Exam: XR Abdomen Exam date and time: 05/16/2022 10:41 AM Age: 81 years old Clinical indication: Condition or disease; Kidney or ureter condition; Calculus (stone) in kidney; Prior surgery; Surgery type: --kidney stents, prostate; Patient HX: HX of prostate cancer; Additional info: Retained ureteral stent, erin sellers 05/16/22 @ 1030 appt to follow TECHNIQUE: Imaging protocol: Radiologic exam of the abdomen. Views: Frontal supine view of the abdomen. 1 View. COMPARISON: CR XR KUB [id number] 10/28/2021 5:58 AM FINDINGS: Gastrointestinal tract: Normal. No bowel dilation. Bones/joints: There is severe osteoarthritis of the lumbar spine There is a double-J ureteral stent on the left side in good position stable since prior. Multiple metallic surgical clips seen in the pelvis. XR/XR KUB [id number] IMPRESSION: 1. Negative for acute GI abnormality. 2. Left ureteral stent in place stable since prior 3. Stable metallic surgical clips in the pelvis 4. Severe lumbar spine osteoarthritis
== END 2022-05-16 10:20 | disposition home or self-care (01) ==
LOC: RAD 10:25
PROVIDERS: PCP Family Medicine; Visit Provider Urology
DX: Z96.0 Presence of urogenital implants (principal); M47.816 Spondylosis without myelopathy or radiculopathy, lumbar region; C61 Malignant neoplasm of prostate; C79.51 Secondary malignant neoplasm of bone; N13.5 Crossing vessel and stricture of ureter without hydronephrosis
CPT/HCPCS: 74018; 99214

== ENCOUNTER → 2022-05-26 06:05 | Day surgery (SDC) | payer MEDICARE, OTHER, SELFPAY ==
--- NOTE | 2022-05-26 | SCC_ITS ---
Procedure done: 1. Cystoscopy left ureteral stent exchange 8.5 seconds of fluoroscopic guidance, for a cumulative dose of 3.41 mGy, was provided to Dr. Puckett by the radiology department. C-arm images of the abdomen were saved for the patient's permanent record. [facility]
--- NOTE | 2022-05-26 04:20 | W.PM.OPSUD ---
Surgery/Procedure H&P Update DATE OF PROCEDURE: May 26, 2022 DATE H&P PERFORMED: 05/16/22 H&P UPDATE INFORMATION: I have reviewed H&P completed within last 30 days, I have examined patient prior to procedure, No changes to prior documentation and [place] [facility] [place] indicated PREOP DIAGNOSIS: Retained left ureteral stent PLANNED PROCEDURE: Operation Date: 05/26/22 07:00 Proposed Procedures p cystoscopy left ureteral stent exchange 87525 N13.5(Not Applicable) - Bill Puckett MD s Ureteral Stent Exchange(Left) - Bill Puckett MD
--- NOTE | 2022-05-26 06:07 | SC_ITS ---
WS: [id number] INTRAOPERATIVE TECHNIQUE: 2 Spot fluoroscopic images for intraoperative purposes. FLUOROSCOPY TIME: 8.5 seconds CLINICAL INFORMATION: Left ureteral stent exchange COMPARISON: None. FINDINGS: Intraoperative images for double-J LEFT ureteral stent exchange. SC/C-arm FL for Urology IMPRESSION: Images obtained for intraoperative purposes.
[2022-05-26 06:20] VITALS: BP 130/65; PULSE 51; RESP 18; TEMP 36.2; O2SAT 99
[2022-05-26] MEDS: sodium chloride 0.9% 1,000 ML 30 ML IV (06:30)
--- NOTE | 2022-05-26 06:34 | P.OP_ITS ---
Operative Report Date of procedure: May 26, 2022 Pre-op diagnosis: Prostate cancer, left ureteral obstruction Post-op diagnosis: Prostate cancer, left ureteral obstruction Procedure done: 1. Cystoscopy left ureteral stent exchange Implants: Left ureteral stent, 6 Latvian by 26 cm double-pigtail, no string Specimens removed/disposition: Stent: Disposed of Pathology: None Surgeon: Italo Estimated blood loss: Minimal Urine output: Not measured Complications: None Findings: Anesthesia: General Condition: Stable Disposition: PACU Intraoperative findings: * Stent removed without difficulty * Replaced without difficulty Brief History: Mack is a very pleasant 81-year-old white male with metastatic prostate cancer with local invasion and obstruction of the left distal ureteral orifice. He has been managed with a chronic indwelling stent which has worked well for him for renal preservation and he seems to tolerate it well. He is a little bit behind schedule on stent change but is admitted now for cystoscopy stent exchange after clinic visit KUB showed no evidence of encrustation on the stent Procedure: After routine preoperative evaluation examination and obtaining of informed consent he was taken to the operating suite on 05/26/2022 where general anesthesia was administered without difficulty after appropriate timeout was performed, SCDs confirmed to be functioning, preoperative antibiotics administered, beta-laura protocol confirmed. Prepped and draped in usual sterile fashion in dorsolithotomy position paying careful attention to avoiding pressure points. 21 Latvian cystoscope with 30 degree lens was introduced into the urethra meatus and advanced into the bladder under videoscopy. Bladder was systematically examined. Stent was in expected position. No encrustation. A flexible tip guidewire was advanced up the left ureter next to the stent. Stent was grasped grasping forceps and withdrawn without difficulty with good uncurling of the proximal end. There is no evidence of any encrustation on the stent with careful inspection after it was removed. Cystoscope was backloaded over the guidewire and a 6 Latvian by 26 cm double- pigtail stent was advanced over the guidewire through the cystoscope into appropriate position as confirmed via fluoroscopy and cystoscopy. Stent was confirmed to be draining. Bladder was drained and the procedure was completed. He tolerated procedure well without complications and was awakened in the operating room and returned to the recovery room in stable condition. PLANS: 1. Anticipate discharge from outpatient surgery 2. Follow-up in about 6 months for preop evaluation for stent exchange 3. Continue follow-up with oncology
--- NOTE | 2022-05-26 06:54 | ANES.PREANE2 ---
Pre-Anesthetic Assessment Height/Weight: Height 1.8 m Weight 104.326 kg Temp Pulse Resp BP Pulse Ox O2 Del Method 97.1 F L 51 L 18 130/65 99 05/26/22 06:20 05/26/22 06:20 05/26/22 06:20 05/26/22 06:20 05/26/22 06:20 05/26/22 06:18 Preop Diagnosis: Prostate cancer, left ureteral obstruction Operation Date: 05/26/22 07:00 Proposed Procedures p cystoscopy left ureteral stent exchange 84331 N13.5(Not Applicable) - Bill Puckett MD s Ureteral Stent Exchange(Left) - Bill Puckett MD Was Beta Anna taken within 24 hours: N/A Was Clonidine taken within 24 hours: N/A Last intake: Intake Last Liquid Date 05/25/22 Last Liquid Time 18:30 Last Solid Date 05/25/22 Last Solid Time 18:30 Social Alcohol and Tobacco Exam alert, oriented x 3, clear to auscultation bilaterally and regular rate & rhythm Airway Submandibular: within normal limits Cervical ROM: within normal limits Mallampati: Class II Dentition: full History/ROS No significant history except as noted and No significant complaints Pulmonary Chronic Obstructive Pulmonary Disease and Shortness of Breath CV/HEM Coronary Artery Disease, Hypertension and Myocardial Infarction stones Hepatic None reported GI None reported Metabolic Morbid Obesity Musc/skel Osteoarthritis/DJD Neuropsych None reported Anesthetic Plan ASA status: 3 Anesthesia: MAC Risk of > 500 ml blood loss (7ml/kg in children): No Medications/Allergies Home Medications Medication Instructions Recorded Confirmed Last Taken Type amlodipine 5 mg tablet 5 mg PO BEDTIME 08/23/19 05/23/22 05/25/22 History aspirin 81 mg tablet,delayed 81 mg PO DAILY 08/23/19 05/23/22 05/23/22 History release (Adult Low Dose Aspirin) atorvastatin 10 mg tablet 10 mg PO QMWF 08/23/19 05/23/22 05/25/22 History carvedilol 6.25 mg tablet 6.25 mg PO DAILY 08/23/19 05/23/22 05/26/22 05:00 History docusate sodium 100 mg capsule 100 mg PO BEDTIME 08/23/19 05/23/22 05/25/22 History hydrocodone 5 mg-acetaminophen 325 1 tab PO Q8H PRN Pain 08/23/19 05/26/22 10/27/21 History mg tablet (Cement) triamterene 37.5 0.5 cap PO DAILY 08/23/19 05/23/22 05/23/22 History mg-hydrochlorothiazide 25 mg capsule clopidogrel 75 mg tablet 75 mg PO DAILY 09/13/19 05/23/22 05/19/22 History multivitamin,nt-kcmh-wbilvxlt 1 tab PO DAILY 07/24/20 05/23/22 05/23/22 History (Complete Multivitamin tablet) lisinopril 10 mg tablet 10 mg PO BID 07/29/21 05/23/22 05/23/22 History venlafaxine 75 mg capsule,extended 75 mg PO DAILY #90 caps 01/24/22 05/23/22 05/23/22 Rx release 24 hr enzalutamide 40 mg capsule (Xtandi) 160 mg PO DAILY #120 caps 05/13/22 05/23/22 05/26/22 05:00 Rx Allergies Allergy/AdvReac Type Severity Reaction Status Date / Time No Known Allergies Allergy Verified 05/26/22 06:22 Current Medications Generic Name Dose Route Start Last Admin Trade Name Freq PRN Reason Stop Dose Admin Sodium Chloride 1,000 mls @ 30 mls/hr 05/26/22 06:15 05/26/22 06:30 Sodium Chloride 0.9% IV 05/27/22 06:14 30 mls/hr .Q24H CEM Administration PFSH Anesthesia Medical History Acquired spondylolisthesis Coronary artery disease Essential hypertension Extrinsic ureteral obstruction Hydronephrosis Hyperlipidemia LDL goal <100 Intervertebral disc disorders with radiculopathy, 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 Peripheral arterial disease Prostate cancer metastatic to bone Retained ureteral stent Surgical History History of arthroscopic knee surgery History of bilateral cataract extraction 2021 History of cataract surgery (12/2021) History of eye surgery Removal of pterygium from the left eye History of radical prostatectomy (1999) History of ureter stent left, 01/20/2019 Hx of heart artery stent Status post surgical removal of malignant neoplasm of skin (12/2021) Family History Mother , at age 83 Cancer breast and kidney Father , at age 60 Stroke Other Hypertension Social History Smoking and tobacco status: current every day smoker (1 ppd, smoked x 25+ years) Alcohol intake: current Alcohol intake frequency: holidays/special occasions only Adopted: No Caregiver/support person: No Lives independently: No Household members: spouse Marital status: service: No Current occupational status: retired History of recent travel: No Current gender identity: Male Data Anesthesia Cardiac Studies: Echocardiogram Ultrasound 04/05/20 Sestamibi Stress Test (Cardiology) 05/02/20
[2022-05-26] MEDS: levofloxacin-dextrose 5 % 500 MG/100 ML PREMIX 100 MG IV (06:55)
[2022-05-26 07:25] VITALS: BP 118/68; PULSE 77; RESP 10; TEMP 36.9; O2SAT 100
[2022-05-26 07:30] VITALS: BP 116/72; PULSE 78; RESP 7; O2SAT 100
[2022-05-26 07:35] VITALS: BP 111/69; PULSE 82; RESP 18; O2SAT 99
[2022-05-26 07:41] VITALS: BP 114/74; PULSE 77; RESP 17; TEMP 36.1; O2SAT 96
[2022-05-26] MEDS: HYDROcodone-acetaminophen 5-325 mg Tablet 1 TAB PO (07:56)
--- NOTE | 2022-05-26 15:20 | ANE.PACU2 ---
Inpatient post-anesthesia follow up: Airway intact: Yes Vital signs: Temperature 97.0 F Pulse Rate 77 Respiratory Rate 17 Blood Pressure 114/74 Pulse Oximetry 96 Oxygen Delivery Me thod Room Air Oxygen Flow Rate 6 Fraction of Inspir ed Oxygen Hydration adequate: Yes Nausea and vomiting: No Pain level: 2 Mental status: Baseline
== END | disposition home or self-care (01) ==
PROVIDERS: PCP Family Medicine; Visit Provider Urology
PROC: 0TJB8ZZ Inspection of Bladder, Via Natural or Artificial Opening Endoscopic (ICD-10-PCS; CPT 52000; principal; 2022-05-26 07:00)
PROC: (CPT 52332; 2022-05-26 07:00)
DX: N13.5 Crossing vessel and stricture of ureter without hydronephrosis (principal); C61 Malignant neoplasm of prostate; J44.9 Chronic obstructive pulmonary disease, unspecified; I25.10 Atherosclerotic heart disease of native coronary artery without angina pectoris; I10 Essential (primary) hypertension; I25.2 Old myocardial infarction; E66.01 Morbid (severe) obesity due to excess calories; Z68.32 Body mass index [BMI] 32.0-32.9, adult; Z79.82 Long term (current) use of aspirin; F17.210 Nicotine dependence, cigarettes, uncomplicated
CPT/HCPCS: 52332; 76000; C2625; J1100; J1956; J2370; J2405; J2704; J3010; J3490; J7030

== ENCOUNTER 2022-07-22 11:41 | Oncology outpatient (recurring) (ONCR) | payer MEDICARE, OTHER, SELFPAY ==
[2022-07-22 12:10] LABS: Basophils % 0.3 %; Eosinophils # 0.2 10^3/uL (0.0-0.8); Eosinophils % 2.8 %; Hematocrit 42.7 % (42.0-52.0); Hemoglobin 13.9 g/dL (11.7-16.6); Lymphocytes # 1.9 10^3/uL (0.8-4.8); Lymphocytes % 29.8 %; Mean Corpuscular HGB Conc 32.6 g/dL (30.0-36.0); Mean Corpuscular Hemoglobin 34.2 pg (28.0-34.0); Mean Corpuscular Volume 105.2 fl (80-94); Mean Platelet Volume 11.7 fL (7.4-10.4); Monocytes # 0.7 10^3/uL (0.2-0.9); Monocytes % 10.4 %; Neutrophils # 3.64 10^3/uL (1.8-7.7); Neutrophils % 56.4 %; Nucleated Red Blood Cells % 0 %; Platelet Count 222 10^3/cmm (130-400); Red Blood Count 4.06 10^6/uL (4.1-5.3); Red Cell Distribution Width 12.5 % (12.1-15.1); White Blood Count 6.5 10^3/uL (4.0-10.0)
[2022-07-22 12:35] LABS: Alanine Aminotransferase 11 U/L (0-41); Albumin Level 3.9 g/dL (3.5-5.2); Alkaline Phosphatase 70 U/L (40-130); Anion Gap 12.6 (5-19); Aspartate Amino Transferase 14 U/L (0-40); Blood Urea Nitrogen 23 mg/dL (8-23); Calcium 9.2 mg/dL (8.5-10.5); Carbon Dioxide 27 mmol/L (22-29); Chloride 103 mmol/L (98-107); Globulin 2.8 g/dL (1.3-4.6); Glucose 132 mg/dL (65-115); Osmolality Calculated 292 mOsm/kg (285-295); Potassium 4.6 mmol/L (3.5-5.1); Sodium 138 mmol/L (136-145); Total Bilirubin 0.5 mg/dL (0.15-1.2); Total Protein 6.7 g/dL (6.6-8.7)
[2022-07-22] MEDS: denosumab 60 mg SDV SUBCUT (13:51)
[2022-07-22] MEDS: leuprolide 22.5 mg Kit IM (13:55)
== END 2022-08-05 23:59 | disposition home or self-care (01) ==
PROVIDERS: PCP Family Medicine; Visit Provider Internal Medicine Medical Oncology
DX: C61 Malignant neoplasm of prostate (principal); C79.51 Secondary malignant neoplasm of bone; R04.0 Epistaxis; Z79.818 Long term (current) use of other agents affecting estrogen receptors and estrogen levels; Z79.899 Other long term (current) drug therapy; F17.210 Nicotine dependence, cigarettes, uncomplicated
CPT/HCPCS: 36415; 80053; 84153; 85025; 96372; 96402; 99214; J0897; J9217

== ENCOUNTER 2022-10-22 11:35 | Oncology outpatient (recurring) (ONCR) | payer MEDICARE, OTHER, SELFPAY ==
[2022-10-22 12:26] LABS: Basophils # 0.1 10^3/uL (0.0-0.1); Basophils % 0.8 %; Eosinophils # 0.3 10^3/uL (0.0-0.8); Eosinophils % 4.3 %; Hematocrit 40.9 % (42.0-52.0); Hemoglobin 13.3 g/dL (11.7-16.6); Lymphocytes % 31.2 %; Mean Corpuscular HGB Conc 32.5 g/dL (30.0-36.0); Mean Corpuscular Hemoglobin 33.9 pg (28.0-34.0); Mean Corpuscular Volume 104.3 fl (80-94); Mean Platelet Volume 12.1 fL (7.4-10.4); Monocytes # 0.6 10^3/uL (0.2-0.9); Monocytes % 9.6 %; Neutrophils # 3.38 10^3/uL (1.8-7.7); Neutrophils % 53.9 %; Nucleated Red Blood Cells % 0 %; Platelet Count 206 10^3/cmm (130-400); Red Blood Count 3.92 10^6/uL (4.1-5.3); White Blood Count 6.3 10^3/uL (4.0-10.0)
[2022-10-22 13:04] LABS: Alanine Aminotransferase 9 U/L (0-41); Alkaline Phosphatase 54 U/L (40-130); Anion Gap 13.1 (5-19); Aspartate Amino Transferase 13 U/L (0-40); Blood Urea Nitrogen 19 mg/dL (8-23); Calcium 8.4 mg/dL (8.5-10.5); Carbon Dioxide 25 mmol/L (22-29); Chloride 102 mmol/L (98-107); Globulin 2.5 g/dL (1.3-4.6); Glucose 87 mg/dL (65-115); Osmolality Calculated 284 mOsm/kg (285-295); Potassium 4.1 mmol/L (3.5-5.1); Sodium 136 mmol/L (136-145); Total Bilirubin 0.6 mg/dL (0.15-1.2); Total Protein 6.5 g/dL (6.6-8.7)
[2022-10-22 13:40] LABS: Testosterone Total 15.3 ng/dL (193-740)
[2022-10-22] MEDS: leuprolide 22.5 mg Kit IM (14:04)
== END 2022-11-02 23:59 | disposition home or self-care (01) ==
PROVIDERS: PCP Family Medicine; Visit Provider Internal Medicine Medical Oncology
DX: C61 Malignant neoplasm of prostate (principal); C79.51 Secondary malignant neoplasm of bone; F17.210 Nicotine dependence, cigarettes, uncomplicated; Z79.52 Long term (current) use of systemic steroids; Z79.818 Long term (current) use of other agents affecting estrogen receptors and estrogen levels; Z79.899 Other long term (current) drug therapy; Z90.89 Acquired absence of other organs
CPT/HCPCS: 36415; 80053; 84153; 84403; 85025; 96402; 99214; J9217

== ENCOUNTER 2022-12-04 12:15 | Outpatient (CLI) | payer MEDICARE, OTHER, SELFPAY ==
--- NOTE | 2022-12-04 12:23 | XR_ITS ---
WS: [id number] Exam: XR KUB [id number] Date/Time of Exam: 12/04/2022 12:25 PM Reason For Exam: stones Comparison 05/16/2022. A left-sided ureteral stent catheter is in place appearing to be in appropriate location. No bowel ob struction or free air. Calcifications superimpose the kidneys and may represent renal stones. No sign of organ enlargement. Moderately advanced degenerative changes of the lumbar spine and mild dextrosc oliosis. Postoperative changes in the pelvis. XR/XR KUB [id number] IMPRESSION: 1. Left-sided ureteral catheter in place appearing to be in appropriate locatio n. 2. Calcifications superimpose the kidneys and may represent renal stones. 3. No acute abdominal process. Postoperative changes in the pelvis.
== END 2022-12-04 12:16 | disposition home or self-care (01) ==
LOC: RAD 12:18
PROVIDERS: PCP Family Medicine; Visit Provider Urology
DX: N13.5 Crossing vessel and stricture of ureter without hydronephrosis (principal); C61 Malignant neoplasm of prostate; N20.9 Urinary calculus, unspecified; Z96.0 Presence of urogenital implants
CPT/HCPCS: 74018; 81003; 99214

== ENCOUNTER 2022-12-15 10:29 | Day surgery (SDC) | payer MEDICARE, OTHER, SELFPAY ==
--- NOTE | 2022-12-10 10:51 | ECG_ITS ---
[facility] Test Date: 2022-12-10 Pat Name: Mack Nash Department: Room: Gender: Male [employer]: : 1940 Requested By: Tayler Gregorio Order Number: [id number] Bal MD: Casey Marshall M.D. Measurements Intervals [place] Rate: 70 P: 77 MA: 169 QRS: 70 QRSD: 88 T: 64 QT: 404 QTc: 437 Interpretive Statements SINUS RHYTHM WITH FREQUENT VENTRICULAR PREMATURE COMPLEXES NONSPECIFIC T-WAVE ABNORMALITY Compared to ECG 10/28/2021 06:32:44 Ventricular premature complex(es) now present T-wave abnormality now present Sinus bradycardia no longer present Myocardial infarct finding no longer present Electronically Signed On 12-10-2022 12:30:09 CDT by Casey Marshall M.D. [id number]
[2022-12-10 11:08] VITALS: BMI 30.4
[2022-12-10 11:51] LABS: Anion Gap 14.1 (5-19); Blood Urea Nitrogen 20 mg/dL (8-23); Calcium 8.7 mg/dL (8.5-10.5); Carbon Dioxide 25 mmol/L (22-29); Chloride 102 mmol/L (98-107); Glucose 94 mg/dL (65-115); Osmolality Calculated 286 mOsm/kg (285-295); Potassium 4.1 mmol/L (3.5-5.1); Sodium 137 mmol/L (136-145)
[2022-12-15] VITALS (11 sets, daily range): BP systolic 98–132; BP diastolic 64–86; PULSE 69–90; RESP 16–19; TEMP 36.1–36.8; O2SAT 94–98
--- NOTE | 2022-12-15 10:32 | XR_ITS ---
WS: [id number] XR KUB [id number] REASON FOR EXAM: Preop stent change FINDINGS: Left ureteral stent in stable position compared to previous examination of 12/14/2022. No urinary tract calculi. Extensive postoperative change with multiple surgical clips in the pelvis. XR/XR KUB [id number] IMPRESSION: Stable left ureteral stent position.
[2022-12-15] MEDS: sodium chloride 0.9% 1,000 ML 30 ML IV (11:40)
--- NOTE | 2022-12-15 12:28 | ANES.PAUD2 ---
Documented by User: Nataliya Posadas CRNA 12/15/22 12:28 Pre-Anesthetic Update Pre-Anesthetic Assessment: Date of Surgery/Procedure: 12/15/22 Preop Diagnosis: Retained left ureteral stent Proposed Procedure: Operation Date: 12/15/22 12:00 Proposed Procedures p []CYSTOSCOPY, LEFT URETERAL STENT CHANGE, POSSIBLE EXTRACORPOREAL SHOCKWAVE LITHOTRIPSY, [id number], N13.5(Left) - Bill Puckett MD s Ureteral Stent Exchange(Left) - Bill Puckett MD s ESWL(Left) - Bill Puckett MD Changes from Pre-Anesthetic Assessment: no changes plavix and asa held. Last Intake: Intake Last Liquid Date 12/15/22 Last Liquid Time 07:00 Last Solid Date 12/14/22 Last Solid Time 16:00 Vitals: Pulse Rhythm Irregular 12/15/22 11:15 Pulse Strength 2+ Slightly Dimin ished 12/15/22 11:15 Oxygen Delivery Me thod Room Air 12/15/22 11:15 Cardiac Studies: Echocardiogram Ultrasound 04/05/20 Sestamibi Stress Test (Cardiology) 05/02/20 Documented by User: Leroy Kim 12/15/22 13:36 Pre-Anesthetic Update Pre-Anesthetic Assessment: Date of Surgery/Procedure: 12/15/22 Cardiac Studies: Echocardiogram Ultrasound 04/05/20 Sestamibi Stress Test (Cardiology) 05/02/20
--- NOTE | 2022-12-15 12:40 | P.HPUD_ITS ---
Surgery/Procedure H&P Update DATE OF PROCEDURE: December 15, 2022 DATE H&P PERFORMED: 12/03/22 H&P UPDATE INFORMATION: I have reviewed H&P completed within last 30 days, I have examined patient prior to procedure, No changes to prior documentation and H&P is in [facility] [place] E[place] on date indicated CHANGES TO PREVIOUS DOCUMENTATION: Reviewed shockwave therapy to the stent to facilitate exchange PREOP DIAGNOSIS: Retained left ureteral stent PLANNED PROCEDURE: Operation Date: 12/15/22 12:00 Proposed Procedures p []CYSTOSCOPY, LEFT URETERAL STENT CHANGE, POSSIBLE EXTRACORPOREAL SHOCKWAVE LITHOTRIPSY, [id number], N13.5(Left) - Bill Puckett MD s Ureteral Stent Exchange(Left) - Bill Puckett MD s ESWL(Left) - Bill Puckett MD
[2022-12-15] MEDS: levofloxacin-dextrose 5 % 500 MG/100 ML PREMIX 100 MG IV (12:57)
--- NOTE | 2022-12-15 13:00 | PM.OP ---
Operative Report Date of procedure: December 15, 2022 Pre-op diagnosis: Retained/calcified left ureteral stent Post-op diagnosis: Retained/calcified left ureteral stent Procedure done: 1. Extracorporeal shockwave lithotripsy to the left proximal ureteral stent curl 2. Cystoscopy, LEFT ureteral stent exchange(6 Surinamese by 26 cm double-pigtail without string) Implants: Left ureteral stent: 6 Surinamese by 26 cm double-pigtail no string Specimens removed/disposition: Left ureteral stent Pathology: Left ureteral stent Surgeon: Italo Gear Nicker: Diony Ang Estimated blood loss: Normal Urine output: Not measured Complications: None Findings: Anesthesia: General Condition: Stable Disposition: PACU Intraoperative findings: Proximal aspect of the stent required 300 shocks in order to free up the proximal loop. Some evidence of neoplastic growth at the ureteral orifice consistent with progression locally of prostate cancer. It did not hinder the changing of the stent. Brief History: Mr. Nash is a very pleasant 81-year-old white male with chronic ureteral obstruction in the left distal ureter trigone secondary to scarring. Originally was felt to have a soft tissue mass in the ureter but ultimately proven not to be. He does have metastatic prostate cancer with likely some local invasion. He has his stent changed on a regular basis. Last stent was about 7 months ago. He has had problems with encrustation of the stent in the past and there was some concern regarding that so he was scheduled for ESWL to the proximal aspect of the stent as well as potential other areas depending ease of withdrawal Procedure: After routine preoperative evaluation examination and obtaining of informed consent he was taken to the operating suite on 12/15/2022 where general anesthesia was administered without difficulty after appropriate timeout was performed, SCDs confirmed to be functioning, preoperative antibiotics administered, beta-laura protocol confirmed. Prepped and draped in usual sterile fashion in dorsolithotomy position pain careful attention to avoiding pressure points. 21 Surinamese cystoscope with 30 degree lens was introduced into the urethral meatus and advanced into the bladder without difficulty. Stent was shown to have some encrustation on the distal aspect. Minimal traction was conducted on it and it was tight and for that reason extracorporeal shockwave therapy was utilized to target the proximal curl. Therapy was initiated and intensity of 1 and advanced to an intensity of 4 with a 3-minute pause after about 300 shocks. Rate was 60 Her cannot be manipulated through the distal aspect of the stent due to local growth of prostate cancer at the ureteral orifice. Thankfully the stent was able to be removed without difficulty with easy proximal uncurling. The guidewire was then replaced without difficulty and a 6 Surinamese by 26 cm double-pigtail stent was advanced without difficulty. Drained and the procedure was completed. He tolerated the procedure well without complications and was awakened in the operating room and returned to the recovery room in stable condition. PLANS: 1. Anticipate discharge from outpatient surgery 2. Plan for follow-up with urologist from [place] either here or in [place] next stent change. Appointment in 4 months. Anticipate stent change in about 5 months. 3. Reviewed with his the more pronounced finding of neoplastic involvement of the distal ureter. We both agreed to hold on any more aggressive diagnostic or treatment options other than just maintaining with stent.
--- NOTE | 2022-12-15 14:26 | ANE.PACU2 ---
Inpatient post-anesthesia follow up: Airway intact: Yes Vital signs: Temperature 98.2 F Pulse Rate 71 Respiratory Rate 19 Blood Pressure 130/74 Pulse Oximetry 97 Oxygen Delivery Me thod Room Air Oxygen Flow Rate 6 Fraction of Inspir ed Oxygen Hydration adequate: Yes Nausea and vomiting: No Pain level: 2 Mental status: Baseline
== END 2022-12-15 13:05 | disposition home or self-care (01) ==
PROVIDERS: Anesthesiology; PCP Family Medicine; Visit Provider Urology
PROC: 0TJB8ZZ Inspection of Bladder, Via Natural or Artificial Opening Endoscopic (ICD-10-PCS; CPT 52000; principal; 2022-12-15 12:00)
PROC: (CPT 50590; 2022-12-15 12:00)
PROC: (CPT 50590; 2022-12-15 12:00)
DX: N13.5 Crossing vessel and stricture of ureter without hydronephrosis (principal); C61 Malignant neoplasm of prostate; I49.3 Ventricular premature depolarization; Z79.82 Long term (current) use of aspirin; Z79.02 Long term (current) use of antithrombotics/antiplatelets
CPT/HCPCS: 50590; 52332; 74018; 80048; 93005; C2625; J1100; J1956; J2405; J2704; J3010; J3490; J7030

== ENCOUNTER 2023-01-20 12:03 | Oncology outpatient (recurring) (ONCR) | payer MEDICARE, OTHER, SELFPAY ==
--- NOTE | 2022-12-10 12:03 | P.ANESASSM_ITS ---
Pre-Anesthetic Assessment Height/Weight: Height 1.8 m Familial anesthetic complications: None Was Beta Anna taken within 24 hours: N/A Was Clonidine taken within 24 hours: N/A Social Alcohol (2 shots of vodka a night) and Tobacco Exam alert, oriented x 3, clear to auscultation bilaterally and regular rate & rhythm Airway Mallampati: Class III Dentition: full Pulmonary Sleep Apnea CV/HEM Coronary Artery Disease (stent - director labor standards 05/25 showed mild CAD, follows up with cardiology) and Hypertension Metabolic Hyperlipidemia Anesthetic Plan ASA status: 3 Anesthesia: General Risk of > 500 ml blood loss (7ml/kg in children): Yes, adequate IV access and fluids planned Medications/Allergies Home Medications Medication Instructions Recorded Confirmed Last Taken Type amlodipine 5 mg tablet 5 mg PO BEDTIME 08/23/19 12/10/22 12/09/22 History aspirin 81 mg tablet,delayed 81 mg PO DAILY 08/23/19 12/10/22 12/09/22 History release (Adult Low Dose Aspirin) atorvastatin 10 mg tablet 10 mg PO QMWF 08/23/19 12/10/22 12/10/22 History carvedilol 6.25 mg tablet 6.25 mg PO DAILY 08/23/19 12/10/22 12/10/22 History docusate sodium 100 mg capsule 100 mg PO BEDTIME 08/23/19 12/10/22 12/10/22 History hydrocodone 5 mg-acetaminophen 325 1 tab PO Q8H PRN Pain 08/23/19 12/10/22 11/25/22 History mg tablet ([place]) triamterene 37.5 0.5 cap PO DAILY 08/23/19 12/10/22 12/10/22 History mg-hydrochlorothiazide 25 mg capsule clopidogrel 75 mg tablet 75 mg PO DAILY 09/13/19 12/10/22 12/09/22 History multivitamin,bx-[id number]-cpsrdzpg 1 tab PO DAILY 07/24/20 12/10/22 12/10/22 History (Complete Multivitamin tablet) lisinopril 10 mg tablet 10 mg PO BID 07/29/21 12/10/22 12/09/22 History venlafaxine 75 mg capsule,extended 75 mg PO DAILY #90 caps 05/27/22 12/10/22 12/10/22 Rx release 24 hr enzalutamide 40 mg capsule (Xtandi) 160 mg PO DAILY #120 caps 12/03/22 12/10/22 12/09/22 Rx Allergies Allergy/AdvReac Type Severity Reaction Status Date / Time No Known Allergies Allergy Verified 12/10/22 10:58 [facility] Anesthesia Medical History Acquired spondylolisthesis Coronary artery disease Essential hypertension Extrinsic ureteral obstruction Hydronephrosis Hyperlipidemia LDL goal <100 Intervertebral disc disorders with radiculopathy, 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 Peripheral arterial disease Prostate cancer metastatic to bone Retained ureteral stent Surgical History History of arthroscopic knee surgery History of bilateral cataract extraction 2021 History of cataract surgery (12/2021) History of eye surgery Removal of pterygium from the left eye History of radical prostatectomy (1999) History of ureter stent left, 01/20/2019 Hx of heart artery stent Status post surgical removal of malignant neoplasm of skin (12/2021) Family History Mother , at age 83 Cancer breast and kidney Father , at age 60 Stroke Other Hypertension Social History Smoking and tobacco status: current every day smoker (1 ppd, smoked x 25+ years) Alcohol intake: current Alcohol intake frequency: holidays/special occasions only Substance/Drug Use: never Adopted: No Caregiver/support person: No Lives independently: No Household members: spouse Marital status: service: No Current occupational status: retired Current gender identity: Male Data Anesthesia Cardiac Studies: Echocardiogram Ultrasound 04/05/20 Sestamibi Stress Test (Cardiology) 05/02
[2023-01-20 12:12] VITALS: BP 136/67; PULSE 75; RESP 18; TEMP 36.1; O2SAT 98
[2023-01-20 12:28] LABS: Basophils % 0.5 %; Eosinophils # 0.2 10^3/uL (0.0-0.8); Eosinophils % 2.6 %; Hematocrit 43.4 % (42.0-52.0); Hemoglobin 14.3 g/dL (11.7-16.6); Lymphocytes # 1.6 10^3/uL (0.8-4.8); Mean Corpuscular HGB Conc 32.9 g/dL (30.0-36.0); Mean Corpuscular Hemoglobin 34.8 pg (28.0-34.0); Mean Corpuscular Volume 105.6 fl (80-94); Mean Platelet Volume 11.8 fL (7.4-10.4); Monocytes # 0.7 10^3/uL (0.2-0.9); Monocytes % 10.9 %; Neutrophils # 3.97 10^3/uL (1.8-7.7); Neutrophils % 60.7 %; Nucleated Red Blood Cells % 0 %; Platelet Count 193 10^3/cmm (130-400); Red Blood Count 4.11 10^6/uL (4.1-5.3); Red Cell Distribution Width 13.1 % (12.1-15.1); White Blood Count 6.5 10^3/uL (4.0-10.0)
[2023-01-20 13:04] LABS: Alanine Aminotransferase 10 U/L (0-41); Albumin Level 3.8 g/dL (3.5-5.2); Alkaline Phosphatase 76 U/L (40-130); Anion Gap 15.8 (5-19); Aspartate Amino Transferase 11 U/L (0-40); Blood Urea Nitrogen 15 mg/dL (8-23); Calcium 9.1 mg/dL (8.5-10.5); Carbon Dioxide 24 mmol/L (22-29); Chloride 104 mmol/L (98-107); Globulin 2.9 g/dL (1.3-4.6); Glucose 113 mg/dL (65-115); Osmolality Calculated 292 mOsm/kg (285-295); Potassium 3.8 mmol/L (3.5-5.1); Sodium 140 mmol/L (136-145); Testosterone Total 14.7 ng/dL (193-740); Total Bilirubin 0.7 mg/dL (0.15-1.2); Total Protein 6.7 g/dL (6.6-8.7)
[2023-01-20] MEDS: leuprolide 22.5 mg Kit IM (14:30)
== END 2023-02-02 23:59 | disposition home or self-care (01) ==
PROVIDERS: Nurse Practitioner; PCP Family Medicine; Visit Provider Internal Medicine Medical Oncology
DX: C61 Malignant neoplasm of prostate (principal); C79.51 Secondary malignant neoplasm of bone; R11.0 Nausea; F17.210 Nicotine dependence, cigarettes, uncomplicated; Z79.818 Long term (current) use of other agents affecting estrogen receptors and estrogen levels; Z79.899 Other long term (current) drug therapy; R26.81 Unsteadiness on feet
CPT/HCPCS: 36415; 80053; 84153; 84403; 85025; 96402; 99214; J9217

== ENCOUNTER 2023-02-17 10:15 | Oncology outpatient (recurring) (ONCR) | payer MEDICARE, OTHER, SELFPAY ==
[2023-02-17 10:16] VITALS: BP 127/71; PULSE 50; RESP 18; TEMP 36.1; O2SAT 98
== END 2023-03-05 23:59 | disposition home or self-care (01) ==
PROVIDERS: PCP Family Medicine; Visit Provider Internal Medicine Medical Oncology
DX: C61 Malignant neoplasm of prostate (principal); C79.51 Secondary malignant neoplasm of bone
CPT/HCPCS: 36415; 84153

== ENCOUNTER 2023-03-17 10:04 | Oncology outpatient (recurring) (ONCR) | payer MEDICARE, OTHER, SELFPAY ==
[2023-03-17 10:12] VITALS: BP 129/76; PULSE 50; RESP 18; TEMP 35.5; O2SAT 100
== END 2023-04-04 23:59 | disposition home or self-care (01) ==
PROVIDERS: PCP Family Medicine; Visit Provider Internal Medicine Medical Oncology
DX: C61 Malignant neoplasm of prostate (principal); C79.51 Secondary malignant neoplasm of bone
CPT/HCPCS: 36415; 84153

== ENCOUNTER → 2023-04-08 15:02 | Outpatient (BNVA) | payer MEDICARE, OTHER, SELFPAY | PROVIDERS: PCP Family Medicine; Visit Provider Internal Medicine | DX: I10 Essential (primary) hypertension (principal); I25.118 Atherosclerotic heart disease of native coronary artery with other forms of angina pectoris; F17.210 Nicotine dependence, cigarettes, uncomplicated | CPT/HCPCS: 99214 ==

== ENCOUNTER 2023-04-21 08:42 | Oncology outpatient (recurring) (ONCR) | payer MEDICARE, OTHER, SELFPAY ==
[2023-04-21 09:14] VITALS: BP 135/67; PULSE 52; RESP 16; TEMP 35.9; O2SAT 99
[2023-04-21 09:39] LABS: Basophils % 0.5 %; Eosinophils # 0.2 10^3/uL (0.0-0.8); Eosinophils % 3.5 %; Hematocrit 39.7 % (37-53); Lymphocytes # 1.7 10^3/uL (0.8-4.8); Lymphocytes % 28.1 %; Mean Corpuscular Hemoglobin 34.7 pg (27-33); Mean Corpuscular Volume 105.3 fl (82-101); Mean Platelet Volume 11.8 fL (7.4-10.4); Monocytes # 0.5 10^3/uL (0.2-0.9); Monocytes % 9.1 %; Neutrophils # 3.48 10^3/uL (1.8-7.7); Neutrophils % 58.6 %; Nucleated Red Blood Cells % 0 %; Platelet Count 209 10^3/cmm (157-399); Red Blood Count 3.77 10^6/uL (3.85-5.65); White Blood Count 5.94 10^3/uL (3.29-11.43)
[2023-04-21 10:11] LABS: Alanine Aminotransferase 8 U/L (0-41); Albumin Level 3.8 g/dL (3.5-5.2); Alkaline Phosphatase 73 U/L (40-130); Anion Gap 13.1 (5-19); Aspartate Amino Transferase 14 U/L (0-40); Blood Urea Nitrogen 22 mg/dL (8-23); Carbon Dioxide 26 mmol/L (22-29); Chloride 103 mmol/L (98-107); Globulin 2.8 g/dL (1.3-4.6); Glucose 110 mg/dL (65-115); Osmolality Calculated 290 mOsm/kg (285-295); Potassium 4.1 mmol/L (3.5-5.1); Sodium 138 mmol/L (136-145); Testosterone Total 20.5 ng/dL (193-740); Total Bilirubin 0.6 mg/dL (0.15-1.2); Total Protein 6.6 g/dL (6.6-8.7)
[2023-04-21] MEDS: flu vacc pf 2023-24 (6 mos+) 60 MCG IM (11:32)
[2023-04-21] MEDS: leuprolide 22.5 mg Kit IM (11:37)
== END 2023-05-05 23:59 | disposition home or self-care (01) ==
PROVIDERS: PCP Family Medicine; Visit Provider Internal Medicine Medical Oncology
DX: C61 Malignant neoplasm of prostate (principal); C79.51 Secondary malignant neoplasm of bone; F17.210 Nicotine dependence, cigarettes, uncomplicated
CPT/HCPCS: 36415; 80053; 84153; 84403; 85025; 90471; 90686; 96402; 99214; J9217

== ENCOUNTER 2023-07-29 10:00 | Oncology outpatient (recurring) (ONCR) | payer MEDICARE, OTHER, SELFPAY ==
[2023-07-22 12:40] VITALS: BP 125/70; PULSE 69; RESP 16; TEMP 36.3; O2SAT 97
[2023-07-22 12:48] LABS: Basophils % 0.5 %; Eosinophils # 0.2 10^3/uL (0.0-0.8); Hematocrit 42.3 % (37-53); Lymphocytes # 1.7 10^3/uL (0.8-4.8); Lymphocytes % 22.5 %; Mean Corpuscular HGB Conc 33.6 g/dL (30-55); Mean Corpuscular Hemoglobin 34.5 pg (27-33); Mean Corpuscular Volume 102.9 fl (82-101); Mean Platelet Volume 11.5 fL (7.4-10.4); Monocytes # 0.8 10^3/uL (0.2-0.9); Monocytes % 10.6 %; Neutrophils # 4.83 10^3/uL (1.8-7.7); Neutrophils % 63.1 %; Nucleated Red Blood Cells % 0 %; Platelet Count 198 10^3/cmm (157-399); Red Blood Count 4.11 10^6/uL (3.85-5.65); Red Cell Distribution Width 12.9 % (12.1-15.1); White Blood Count 7.65 10^3/uL (3.29-11.43)
[2023-07-22 13:14] LABS: Alanine Aminotransferase 10 U/L (0-41); Albumin Level 3.8 g/dL (3.5-5.2); Alkaline Phosphatase 84 U/L (40-130); Anion Gap 13.3 (5-19); Aspartate Amino Transferase 13 U/L (0-40); Blood Urea Nitrogen 23 mg/dL (8-23); Calcium 9.3 mg/dL (8.5-10.5); Carbon Dioxide 26 mmol/L (22-29); Chloride 101 mmol/L (98-107); Globulin 2.9 g/dL (1.3-4.6); Glucose 110 mg/dL (65-115); Osmolality Calculated 286 mOsm/kg (285-295); Potassium 4.3 mmol/L (3.5-5.1); Sodium 136 mmol/L (136-145); Testosterone Total 8.3 ng/dL (193-740); Total Bilirubin 0.7 mg/dL (0.15-1.2); Total Protein 6.7 g/dL (6.6-8.7)
[2023-07-29] MEDS: leuprolide 45 mg Kit IM (10:56)
[2023-07-29 11:05] VITALS: BP 159/87; PULSE 62; RESP 17; TEMP 36; O2SAT 96
== END 2023-07-29 23:59 | disposition home or self-care (01) ==
PROVIDERS: Nurse Practitioner Family; PCP Family Medicine; Visit Provider Internal Medicine Medical Oncology
DX: Z51.11 Encounter for antineoplastic chemotherapy; C61 Malignant neoplasm of prostate; C79.51 Secondary malignant neoplasm of bone; Z53.9 Procedure and treatment not carried out, unspecified reason
CPT/HCPCS: 36415; 80053; 84153; 84403; 85025; 96402; 99214; J9217

== ENCOUNTER 2023-09-09 09:55 | Outpatient (CLI) | payer MEDICARE, OTHER, SELFPAY ==
--- NOTE | 2023-09-09 10:02 | US_ITS ---
WS: [id number] RENAL ULTRASOUND HISTORY: PROSTATE CA/L URETERAL OBSTRUCTION/RISING PSA, LEFT ureteral stent. COMPARISON: 08/25/2019 TECHNIQUE: 2-D and color Doppler imaging of the kidney submitted. Right kidney: 10.5 cm x 4.8 cm x 3.7 cm. Cortex: 1.2 cm Normal size kidney. No hydronephrosis or mass. There is a very tiny cortical cyst inferior pole measu ring 9 x 1 x 9 mm. Left kidney: 11.2 cm x 4.1 cm x 4.2 cm. Cortex: 1.0 cm Normal size kidney. Cortical cyst mid to lower LEFT kidney measures 2.7 x 3.3 x 2.7 cm. No vascularit y is identified. This cyst was previously described by CT in 2017 with mild increase in size. No hydr onephrosis. Coil of the proximal ureteral stent is not identified by ultrasound. Aorta: Not visualized. Urinary Bladder: Mildly distended. Curvilinear loop in the bladder is probably the distal end of the ureteral stent that has been placed. IMPRESSION: 1. No hydronephrosis or renal atrophy. 2. Bilateral cortical cysts. 3. As per history patient has a LEFT ureteral stent. The proximal coil is not identified in the LEFT renal pelvis. The distal coil is noted in the urinary bladder.
== END 2023-09-09 09:56 | disposition home or self-care (01) ==
LOC: RAD 09:57
PROVIDERS: PCP Family Medicine; Visit Provider Urology
DX: N28.1 Cyst of kidney, acquired (principal); C61 Malignant neoplasm of prostate; N13.5 Crossing vessel and stricture of ureter without hydronephrosis; Z96.0 Presence of urogenital implants
CPT/HCPCS: 76770

== ENCOUNTER 2023-09-17 10:21 | Oncology outpatient (recurring) (ONCR) | payer MEDICARE, OTHER, SELFPAY ==
--- NOTE | 2023-09-17 11:05 | XRR_ITS ---
PROCEDURE INFORMATION: Exam: XR Abdomen Exam date and time: 09/17/2023 11:08 AM Age: 82 years old Clinical indication: Device placement; Urinary device; Renal or nephroureteral stent; Prior surgery; Surgery date: 1-6 months; Additional info: Prostate ca/l ureteral obstruction/rising psa TECHNIQUE: Imaging protocol: Radiologic exam of the abdomen. Views: Frontal supine view of the abdomen. 1 View. COMPARISON: CR XR KUB [id number] 12/15/2022 10:38 AM FINDINGS: Gastrointestinal tract: There is no obvious bowel obstruction or free air on this plain radiographic examination with the patient in the supine position. Otherwise, unremarkable. Organs: A left double-J ureteral stent projects in satisfactory position. Distal and proximal loops are properly formed. Multiple surgical clips in the pelvis bilaterally. Vasculature: Arterial calcification.. Bones/joints: Mild scoliosis with moderate and severe multilevel spondylosis. XR/XR KUB [id number] IMPRESSION: 1. Satisfactory appearance of left double-J ureteral stent. 2. Additional details as above.
== END 2023-10-04 23:59 | disposition home or self-care (01) ==
PROVIDERS: Urology; PCP Family Medicine; Visit Provider Internal Medicine Medical Oncology
DX: C61 Malignant neoplasm of prostate (principal); C79.51 Secondary malignant neoplasm of bone; N13.5 Crossing vessel and stricture of ureter without hydronephrosis; Z96.0 Presence of urogenital implants
CPT/HCPCS: 36415; 74018; 84153

== ENCOUNTER 2023-10-27 11:01 | Oncology outpatient (recurring) (ONCR) | payer MEDICARE, OTHER, SELFPAY ==
[2023-10-27 11:20] LABS: Basophils % 0.6 %; Eosinophils # 0.2 10^3/uL (0.0-0.8); Eosinophils % 3.3 %; Hematocrit 42.6 % (37-53); Lymphocytes # 2.1 10^3/uL (0.8-4.8); Lymphocytes % 33.4 %; Mean Corpuscular HGB Conc 32.6 g/dL (30-55); Mean Corpuscular Hemoglobin 33.9 pg (27-33); Mean Corpuscular Volume 103.9 fl (82-101); Mean Platelet Volume 11.7 fL (7.4-10.4); Monocytes # 0.7 10^3/uL (0.2-0.9); Monocytes % 10.5 %; Neutrophils # 3.32 10^3/uL (1.8-7.7); Neutrophils % 51.9 %; Nucleated Red Blood Cells % 0 %; Platelet Count 198 10^3/cmm (157-399); Red Cell Distribution Width 12.9 % (12.1-15.1)
[2023-10-27 11:50] LABS: Alanine Aminotransferase 11 U/L (0-41); Albumin Level 3.8 g/dL (3.5-5.2); Alkaline Phosphatase 79 U/L (40-130); Anion Gap 11.4 (5-19); Aspartate Amino Transferase 14 U/L (0-40); Blood Urea Nitrogen 18 mg/dL (8-23); Calcium 9.1 mg/dL (8.5-10.5); Carbon Dioxide 27 mmol/L (22-29); Chloride 103 mmol/L (98-107); Globulin 3.2 g/dL (1.3-4.6); Glucose 95 mg/dL (65-115); Osmolality Calculated 286 mOsm/kg (285-295); Potassium 4.4 mmol/L (3.5-5.1); Sodium 137 mmol/L (136-145); Testosterone Total 11.9 ng/dL (193-740); Total Bilirubin 0.7 mg/dL (0.15-1.2)
== END 2023-11-03 23:59 | disposition home or self-care (01) ==
PROVIDERS: Nurse Practitioner Family; PCP Family Medicine; Visit Provider Internal Medicine Medical Oncology
DX: C61 Malignant neoplasm of prostate (principal); C79.51 Secondary malignant neoplasm of bone; N13.5 Crossing vessel and stricture of ureter without hydronephrosis; Z96.0 Presence of urogenital implants; F17.210 Nicotine dependence, cigarettes, uncomplicated; Z79.899 Other long term (current) drug therapy
CPT/HCPCS: 36415; 80053; 84153; 84403; 85025; 99214

== ENCOUNTER 2024-01-22 13:40 | Outpatient (CLI) | payer MEDICARE, OTHER, SELFPAY ==
--- NOTE | 2024-01-22 13:43 | US_ITS ---
WS: [id number] ULTRASOUND RENAL TECHNIQUE: Ultrasound examination of both kidneys. CLINICAL INFORMATION: LEFT URETERAL OBSTRUCTION COMPARISON: 09/09/23 FINDINGS: RIGHT: Tiny RIGHT renal cysts Right kidney is normal in size and appearance. Echogenicity: Normal. Hydronephrosis: None. Perinephric fluid: None. Right kidney measures: 10.4 cm x 4.5 cm x 5.4 cm. LEFT: Left simple renal cyst measuring 2.7x 3.5 x 2.7cm Left kidney is normal in size and appearance. Echogenicity: Normal. Hydronephrosis: None. Perinephric fluid: None. Left kidney measures: 10.4 cm x 4.6 cm x 5.4 cm. Normal visualized aorta. Prostate measures 3.5 x 2.1 x 2.5cm. Mays catheter US/US renal BI* [id number] IMPRESSION: 1. Mays catheter 2. Left simple renal cyst measuring 2.7x 3.5 x 2.7cm unchanged 3. Tiny RIGHT renal cysts 4. No hydronephrosis 5. Left ureteral stent distal aspect visualized in bladder. Proximal portion d ifficult to visualize
--- NOTE | 2024-01-22 13:43 | XRR_ITS ---
PROCEDURE INFORMATION: Exam: XR Abdomen Exam date and time: 01/22/2024 1:53 PM Age: 83 years old Clinical indication: Condition or disease; Kidney or ureter condition; Stricture/kinking of ureter; Prior surgery; Surgery date: 6+ months; Surgery type: Lt urteral stent/prostatectomy; Patient HX: HX of prostate cancer; Additional info: Left ureteral obstruction, PT having US too TECHNIQUE: Imaging protocol: Radiologic exam of the abdomen. Views: Frontal supine view of the abdomen. 1 View. COMPARISON: CR XR KUB [id number] 09/17/2023 11:08 AM FINDINGS: Tubes, catheters and devices: A left ureteral stent is seen, unchanged in appearance and position from prior exam. Gastrointestinal tract: Nonspecific bowel gas pattern without bowel dilatation. Predominance of scattered gas and stool in the colon. Intraperitoneal space: No indication of free air. Organs: Postsurgical clips in the pelvis of previous prostatectomy. Vasculature: Vascular calcification. Bones/joints: Degenerative bony changes. Other findings: Psoas margins appear distinct. XR/XR KUB [id number] IMPRESSION: Nonspecific nonobstructive bowel gas pattern. Left ureteral stent appears stable with prior exam. Postsurgical changes again noted in the pelvis from prior prostatectomy.
== END 2024-01-22 13:41 | disposition home or self-care (01) ==
LOC: RAD 13:40
PROVIDERS: PCP Family Medicine; Visit Provider Urology
DX: N13.5 Crossing vessel and stricture of ureter without hydronephrosis (principal); N28.1 Cyst of kidney, acquired; Z96.0 Presence of urogenital implants
CPT/HCPCS: 74018; 76770

== ENCOUNTER 2024-01-26 11:31 | Oncology outpatient (recurring) (ONCR) | payer MEDICARE, OTHER, SELFPAY ==
[2024-01-26 12:02] LABS: Basophils % 0.4 %; Eosinophils # 0.2 10^3/uL (0.0-0.8); Eosinophils % 3.1 %; Hematocrit 42.9 % (37-53); Lymphocytes # 1.8 10^3/uL (0.8-4.8); Lymphocytes % 26.2 %; Mean Corpuscular HGB Conc 33.6 g/dL (30-55); Mean Corpuscular Hemoglobin 34.4 pg (27-33); Mean Corpuscular Volume 102.4 fl (82-101); Mean Platelet Volume 11.4 fL (7.4-10.4); Monocytes # 0.7 10^3/uL (0.2-0.9); Monocytes % 10.5 %; Neutrophils % 59.7 %; Nucleated Red Blood Cells % 0 %; Platelet Count 218 10^3/cmm (157-399); Red Blood Count 4.19 10^6/uL (3.85-5.65); Red Cell Distribution Width 12.7 % (12.1-15.1); White Blood Count 6.87 10^3/uL (3.29-11.43)
[2024-01-26 12:54] LABS: Alanine Aminotransferase 11 U/L (0-41); Albumin Level 3.9 g/dL (3.5-5.2); Alkaline Phosphatase 86 U/L (40-130); Aspartate Amino Transferase 14 U/L (0-40); Blood Urea Nitrogen 22 mg/dL (8-23); Calcium 9.3 mg/dL (8.5-10.5); Carbon Dioxide 24 mmol/L (22-29); Chloride 103 mmol/L (98-107); Globulin 3.2 g/dL (1.3-4.6); Glucose 93 mg/dL (65-115); Osmolality Calculated 289 mOsm/kg (285-295); Sodium 138 mmol/L (136-145); Total Bilirubin 0.5 mg/dL (0.15-1.2); Total Protein 7.1 g/dL (6.6-8.7)
[2024-01-26 13:00] LABS: Anion Gap 15.8 (5-19); Potassium 4.8 mmol/L (3.5-5.1)
[2024-01-26] MEDS: denosumab 60 mg SDV SUBCUT (13:47)
[2024-01-26] MEDS: leuprolide 45 mg Kit IM (13:47)
== END 2024-01-26 23:59 | disposition home or self-care (01) ==
PROVIDERS: Nurse Practitioner Family; PCP Family Medicine; Visit Provider Internal Medicine Medical Oncology
DX: C61 Malignant neoplasm of prostate (principal); C79.51 Secondary malignant neoplasm of bone; N13.5 Crossing vessel and stricture of ureter without hydronephrosis; Z96.0 Presence of urogenital implants; F17.210 Nicotine dependence, cigarettes, uncomplicated; Z79.899 Other long term (current) drug therapy; Z51.11 Encounter for antineoplastic chemotherapy
CPT/HCPCS: 36415; 80053; 84153; 85025; 96372; 96402; 99214; J0897; J9217

== ENCOUNTER 2024-03-04 14:48 | Emergency (ER) | payer MEDICARE, OTHER, SELFPAY ==
[2024-03-04] VITALS (9 sets, daily range): BP systolic 123–149; BP diastolic 64–132; PULSE 59–76; RESP 15–22; TEMP 36.7; O2SAT 91–99; BMI 29.9
--- NOTE | 2024-03-04 15:56 | CTR_ITS ---
PROCEDURE INFORMATION: Exam: CT Abdomen And Pelvis Without Contrast Exam date and time: 03/04/2024 4:36 PM Age: 83 years old Clinical indication: Other: Hematuria; Abdominal pain; Localized; Lower; Prior surgery; Surgery date: 6+ months; Surgery type: Prostatectomy, left renal stent TECHNIQUE: Imaging protocol: Computed tomography of the abdomen and pelvis without contrast. Radiation optimization: All CT scans at this facility use at least one of these dose optimization techniques: automated exposure control; mA and/or kV adjustment per patient size (includes targeted exams where dose is matched to clinical indication); or iterative reconstruction. COMPARISON: CT abdomen pelvis w con* [id number] 01/03/2019 10:19 AM RADIATION DOSE METRICS: Total DLP (mGy-cm): 985.33 FINDINGS: Coronary arteries: Multivessel atherosclerotic disease which involves the coronary arteries. Liver: Normal. No mass. Gallbladder and biliary ducts: Normal. No calcified stones. No ductal dilation. Pancreas: Normal. No ductal dilation. Spleen: Normal. No splenomegaly. Adrenal glands: There is multilobulated benign adenomatous enlargement of the adrenal glands. Kidneys and ureters: 2.9 cm left renal cyst has benign features. Follow-up is not necessary. There is a double pigtail catheter extending from the left renal pelvis into the bladder. Heterogeneous increased density is present along the dependent aspect of the bladder likely representing hemorrhagic products. A small amount of air is present in the bladder as well. Stomach and bowel: There is diverticulosis of the colon without evidence of diverticulitis. Appendix: A normal appendix is identified. Intraperitoneal space: Unremarkable. No free air. No significant fluid collection. Vasculature: Unremarkable. No abdominal aortic aneurysm. Lymph nodes: Unremarkable. No enlarged lymph nodes. Urinary bladder: See Kidneys and ureters finding. Reproductive: Prostatectomy changes. Bones/joints: There are degenerative changes in the visualized spine. Chronic appearing mild compression fracture of the L4 superior endplate. Chronic defects are present through the bilateral L5 pars interarticularis. There is resultant grade 1 spondylolisthesis at L5-S1 and narrowing of the bilateral neural foramina. Soft tissues: There is a sebaceous cyst in the subcutaneous soft tissues posterior to the sacrum measuring 6.7 x 0.7 cm in the craniocaudad [address]/CT abdomen pelvis wo con [id number] IMPRESSION: Heterogeneous increased density along the dependent aspect of the bladder is consistent with hemorrhagic products. Double pigtail catheter extends from the left renal pelvis into the bladder. COMMENTS: Consistent with the [employer]'s Incidental Findings Committee white paper (J Am Elvis Radiol 2018): Any incidental renal lesion less than 1 cm or classified as too small to characterize, or any incidental cystic renal lesion characterized as simple-appearing, is likely benign. No follow-up imaging is recommended for these lesions per consensus recommendations based on imaging criteria.
--- NOTE | 2024-03-04 15:58 | ED_ITS ---
HPI - Male Genitourinary 2 General: Chief complaint: Urogenital-Male Stated complaint: Urinary stent--bleeding Time Seen by Provider: 03/04/24 15:48 History of Present Illness: 83-year-old male presents emergency room complaining of hematuria for the last 5 days. Blood in urine has become more concentrated over the last several days at a point now he has difficult time urinating. He is not on any anticoagulants he does take aspirin and clopidogrel. Has a history of prostate CA with a previous radical prostatectomy. He also had a ureteral obstruction on the right and a stent was placed is still in place. He has had problems with hematuria in the past Associated symptoms: Reports dysuria and hematuria Related Data Home Medications Medication Instructions Recorded Confirmed amlodipine 5 mg tablet 5 mg PO BEDTIME 08/23/19 01/26/24 aspirin 81 mg tablet,delayed 81 mg PO DAILY 08/23/19 01/26/24 release (Adult Low Dose Aspirin) atorvastatin 10 mg tablet 10 mg PO QMWF 08/23/19 01/26/24 carvedilol 6.25 mg tablet 6.25 mg PO DAILY 08/23/19 01/26/24 docusate sodium 100 mg capsule 100 mg PO BEDTIME 08/23/19 01/26/24 hydrocodone 5 mg-acetaminophen 325 1 tab PO Q8H PRN Pain 08/23/19 01/26/24 mg tablet ([place]) triamterene 37.5 0.5 cap PO DAILY 08/23/19 01/26/24 mg-hydrochlorothiazide 25 mg capsule clopidogrel 75 mg tablet 75 mg PO DAILY 09/13/19 01/26/24 multivitamin,[id number] 1 tab PO DAILY 07/24/20 01/26/24 (Complete Multivitamin tablet) lisinopril 10 mg tablet 10 mg PO BID 07/29/21 01/26/24 Previous Rx's Medication Instructions Recorded enzalutamide 40 mg capsule (Xtandi) 160 mg (4 x 40 mg) PO DAILY #120 05/21/23 caps venlafaxine 75 mg capsule,extended 75 mg PO DAILY #90 caps 12/29/23 release 24 hr Allergies Allergy/AdvReac Type Severity Reaction Status Date / Time No Known Drug Allergies Allergy Mild Unknown Verified 01/26/24 11:47 Review of Systems 2 Const: Denies: fever(s) or chills Card: Denies: chest pain Resp: Denies: dyspnea GI: Reports: abdominal pain : Reports: dysuria and hematuria; Denies: urinary frequency or urinary urgency Musc: Denies: neck pain or back pain Skin/Breast: Denies: rash PFSH ED 2 PFSH: Medical History Superficial thrombophlebitis of right leg Peripheral arterial disease Hydronephrosis Essential hypertension Hyperlipidemia LDL goal <100 Coronary artery disease Retained ureteral stent Extrinsic ureteral obstruction Prostate cancer metastatic to bone Acquired spondylolisthesis Lumbar stenosis with neurogenic claudication Intervertebral disc disorders with radiculopathy, lumbosacral region Surgical History History of eye surgery Removal of pterygium from the left eye History of bilateral cataract extraction 2021 History of cataract surgery (12/2021) Status post surgical removal of malignant neoplasm of skin (12/2021) History of arthroscopic knee surgery History of ureter stent left, 01/20/2019 History of radical prostatectomy (1999) Hx of heart artery stent Family History Mother , at age 83 Cancer breast and kidney Father , at age 60 Stroke Other Hypertension Social History Smoking and tobacco/nicotine status: unknown if used tobacco/nicotine Alcohol intake: current Alcohol intake frequency: holidays/special occasions only Substance/Drug Use: never Adopted: No Caregiver/support person: No Lives independently: No Household members: spouse Marital status: service: No Current occupational status: retired Current gender identity: Male Physical Exam 2 Const: GENERAL APPEARANCE: cooperative ORIENTATION/CONSCIOUSNESS: Yes awake, Yes oriented to person, Yes oriented to place and Yes oriented to time HENMT: COMMON NORMALS: normocephalic, atraumatic and hearing grossly normal bilaterally HEAD & SCALP: normocephalic and atraumatic Resp: COMMON NORMALS: normal respiratory effort, No retractions, No use of accessory muscles and clear to auscultation bilaterally AUSCULTATION: clear to auscultation bilaterally Cardio: COMMON NORMALS: regular rate, regular rhythm and No murmurs present (Cardio) RATE: regular rate RHYTHM: regular rhythm GI: COMMON NORMALS: No hepatosplenomegaly present AUSCULTATION: Yes normoactive bowel sounds PALPATION: Yes Tenderness to palpation present (GI) (Suprapubic), No Guarding due to palpation present (GI) and Yes No hepatosplenomegaly present Extremity: COMMON NORMALS: normal to inspection, capillary refill normal, no clubbing, cyanosis or edema, no calf tenderness and no pedal edema Neuro: SENSORIUM/ORIENTATION: Yes oriented to person, Yes oriented to place and Yes oriented to time Skin: COMMON NORMALS: no rashes or lesions noted GENERAL SKIN EXAM: no rashes or lesions noted Course 2 Vital Signs: Vital signs: Vital Signs Temperature 98.1 F 03/04/24 15:21 Pulse Rate 49 L 03/05/24 03:09 Respiratory Rate 18 03/05/24 03:09 Blood Pressure 113/73 03/05/24 03:09 Pulse Oximetry 95 03/05/24 03:09 Oxygen Delivery Me thod Room Air 03/04/24 18:00 MDM - Male Medical Decision Making CT reports what appears to be large amount of coagulated blood within the bladder. Patient previously seen Dr. Gates in [place]. He is not available Dr. Silva has agreed to see the patient [place] as a direct admission. Talk to Dr. Silva directly via phone. Transfer to [place] via ambulance. Continuous bladder irrigation was initiated in the emergency room. Patient has no leukocytosis renal function is still good. No leukocyte esterase or nitrates. Did not initiate antibiotics at this time. Medical Records I reviewed the patient's medical records. Lab Data I reviewed the patient's lab results. 03/04/24 16:20 03/04/24 16:20 Radiology Impressions Abdomen/Pelvis CT 03/04/24 15:56 IMPRESSION: Heterogeneous increased density along the dependent aspect of the bladder is consistent with hemorrhagic products. Double pigtail catheter extends from the left renal pelvis into the bladder. COMMENTS: Consistent with the [employer]'s Incidental Findings Committee white paper (J Am Elvis Radiol 2018): Any incidental renal lesion less than 1 cm or classified as too small to characterize, or any incidental cystic renal lesion characterized as simple-appearing, is likely benign. No follow-up imaging is recommended for these lesions per consensus recommendations based on imaging criteria. Laboratory Results WBC 6.22 10^3/uL (3.29-11.43) 03/04/24 16:20 RBC 3.88 10^6/uL (3.85-5.65) 03/04/24 16:20 Hgb 13.30 g/dL (11.27-16.99) 03/04/24 16:20 Hct 40.6 % (37-53) 03/04/24 16:20 MCV 104.6 fl (82-101) H 03/04/24 16:20 MCH 34.3 pg (27-33) H 03/04/24 16:20 MCHC 32.8 g/dL (30-55) 03/04/24 16:20 RDW 13.2 % (12.1-15.1) 03/04/24 16:20 Plt Count 206 10^3/cmm (157-399) 03/04/24 16:20 MPV 11.6 fL (7.4-10.4) H 03/04/24 16:20 Neut % (Auto) 52.7 % 03/04/24 16:20 Lymph % (Auto) 28.8 % 03/04/24 16:20 [place] % (Auto) 12.7 % 03/04/24 16:20 Eos % (Auto) 5.0 % 03/04/24 16:20 Baso % (Auto) 0.5 % 03/04/24 16:20 Neut # (Auto) 3.28 10^3/uL (1.8-7.7) 03/04/24 16:20 Lymph # (Auto) 1.8 10^3/uL (0.8-4.8) 03/04/24 16:20 [place] # (Auto) 0.8 10^3/uL (0.2-0.9) 03/04/24 16:20 Eos # (Auto) 0.3 10^3/uL (0.0-0.8) 03/04/24 16:20 Baso # (Auto) 0.0 10^3/uL (0.0-0.1) 03/04/24 16:20 Nucleated RBC % (auto) 0 % 03/04/24 16:20 Nucleated RBCs # 0.0 /100WBC 03/04/24 16:20 Sodium 139 mmol/L (136-145) 03/04/24 16:20 Potassium 4.2 mmol/L (3.5-5.1) 03/04/24 16:20 Chloride 104 mmol/L (98-107) 03/04/24 16:20 Carbon Dioxide 25 mmol/L (22-29) 03/04/24 16:20 Anion Gap 14.2 (5-19) 03/04/24 16:20 BUN 25 mg/dL (8-23) H 03/04/24 16:20 Creatinine 0.9 mg/dL (0.7-1.2) 03/04/24 16:20 GFR Calculation Not Reportable 03/04/24 16:20 Glucose 130 mg/dL (65-115) H 03/04/24 16:20 Calculated Osmolality 294 mOsm/kg (285-295) 03/04/24 16:20 Calcium 8.4 mg/dL (8.5-10.5) L 03/04/24 16:20 Total Bilirubin 0.4 mg/dL (0.15-1.2) 03/04/24 16:20 AST 13 U/L (0-40) 03/04/24 16:20 ALT 9 U/L (0-41) 03/04/24 16:20 Alkaline Phosphatase 67 U/L (40-130) 03/04/24 16:20 Total Protein 6.4 g/dL (6.6-8.7) L 03/04/24 16:20 Albumin 3.8 g/dL (3.5-5.2) 03/04/24 16:20 Globulin 2.6 g/dL (1.3-4.6) 03/04/24 16:20 Urine Color Red (Yellow) A 03/04/24 16:06 Urine Appearance Cloudy (CLEAR) A 03/04/24 16:06 Urine pH Not Reportable 03/04/24 16:06 Ur Specific [place] Not Reportable 03/04/24 16:06 Urine Protein Not Reportable 03/04/24 16:06 Urine Glucose (UA) Not Reportable 03/04/24 16:06 Urine Ketones Not Reportable 03/04/24 16:06 Urine Blood Not Reportable 03/04/24 16:06 Urine Nitrate Not Reportable 03/04/24 16:06 Urine Bilirubin Not Reportable 03/04/24 16:06 Urine Urobilinogen Not Reportable 03/04/24 16:06 Ur Leukocyte Esterase Not Reportable 03/04/24 16:06 Urine RBC >100 /hpf (0-2) H 03/04/24 16:06 Urine WBC 10-15 /hpf (0-5) H 03/04/24 16:06 Ur Squamous Epith Cells 0-4 /hpf (0-5) H 03/04/24 16:06 Amorphous Sediment Not Reportable 03/04/24 16:06 Urine Bacteria 1+ /hpf (NONE) H 03/04/24 16:06 Hyaline Casts 0-4 /lpf H 03/04/24 16:06 All radiology interpretation(s) finalized by discharge Discharge Plan Discharge Patient Disposition: Xfer Short-Term Hosp Condition: Stable Referrals: Tony Guerra MD [Primary Care Provider] - Coding Level of Care Code ED 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
[2024-03-04 16:10] LABS: Charge for UA Resulting for Rev
[2024-03-04 16:35] LABS: Basophils % 0.5 %; Eosinophils # 0.3 10^3/uL (0.0-0.8); Hematocrit 40.6 % (37-53); Lymphocytes # 1.8 10^3/uL (0.8-4.8); Lymphocytes % 28.8 %; Mean Corpuscular HGB Conc 32.8 g/dL (30-55); Mean Corpuscular Hemoglobin 34.3 pg (27-33); Mean Corpuscular Volume 104.6 fl (82-101); Mean Platelet Volume 11.6 fL (7.4-10.4); Monocytes # 0.8 10^3/uL (0.2-0.9); Monocytes % 12.7 %; Neutrophils # 3.28 10^3/uL (1.8-7.7); Neutrophils % 52.7 %; Nucleated Red Blood Cells % 0 %; Platelet Count 206 10^3/cmm (157-399); Red Blood Count 3.88 10^6/uL (3.85-5.65); Red Cell Distribution Width 13.2 % (12.1-15.1); White Blood Count 6.22 10^3/uL (3.29-11.43)
[2024-03-04 16:42] LABS: Add Urine Culture? Yes; Bacteria Urine 1+ /hpf; Hyaline Casts Urine 0-4 /lpf; RBC Urine >100 /hpf (0-2); Squamous Epithelial Cell Urine 0-4 /hpf (0-5); UA Manual Slide Review YES; UA Slide Review UA Slide Review Perf; Urine Appearance Cloudy (CLEAR); Urine Color Red (Yellow)
[2024-03-04 16:58] LABS: Alanine Aminotransferase 9 U/L (0-41); Albumin Level 3.8 g/dL (3.5-5.2); Alkaline Phosphatase 67 U/L (40-130); Anion Gap 14.2 (5-19); Aspartate Amino Transferase 13 U/L (0-40); Blood Urea Nitrogen 25 mg/dL (8-23); Calcium 8.4 mg/dL (8.5-10.5); Carbon Dioxide 25 mmol/L (22-29); Chloride 104 mmol/L (98-107); Creatinine Clr Calc Pharmacy 76.6534; Globulin 2.6 g/dL (1.3-4.6); Glucose 130 mg/dL (65-115); Osmolality Calculated 294 mOsm/kg (285-295); Potassium 4.2 mmol/L (3.5-5.1); Sodium 139 mmol/L (136-145); Total Bilirubin 0.4 mg/dL (0.15-1.2); Total Protein 6.4 g/dL (6.6-8.7)
[2024-03-04] MEDS: morphine 4 mg/mL SDV 1 mL IVP (23:28)
[2024-03-04] MEDS: ondansetron 2 mg/ML SDV 2 mL 4 MG IVP (23:29)
[2024-03-05] MEDS: morphine 4 mg/mL SDV 1 mL IVP ×2 (00:19→03:03)
[2024-03-05 03:03] VITALS: RESP 16; O2SAT 90
[2024-03-05 03:09] VITALS: BP 113/73; PULSE 49; RESP 18; O2SAT 95
== END 2024-03-05 03:10 | disposition short-term general hospital (02) ==
PROVIDERS: Emergency Provider Family Medicine; PCP Family Medicine
DX: R31.9 Hematuria, unspecified (principal); I10 Essential (primary) hypertension; E78.5 Hyperlipidemia, unspecified; I25.10 Atherosclerotic heart disease of native coronary artery without angina pectoris; Z85.46 Personal history of malignant neoplasm of prostate; Z85.830 Personal history of malignant neoplasm of bone
CPT/HCPCS: 36415; 51798; 74176; 80053; 81003; 81015; 85025; 87086; 96374; 96375; 96376; 99285; J2270; J2405

== ENCOUNTER → 2024-04-08 09:09 | Outpatient (BNVA) | payer MEDICARE, OTHER, SELFPAY | PROVIDERS: PCP Family Medicine; Visit Provider Internal Medicine | DX: I10 Essential (primary) hypertension (principal); I25.10 Atherosclerotic heart disease of native coronary artery without angina pectoris; F17.210 Nicotine dependence, cigarettes, uncomplicated | CPT/HCPCS: 99214 ==

== ENCOUNTER 2024-04-09 21:54 | Emergency (ER) | payer MEDICARE, OTHER, SELFPAY ==
[2024-04-09] VITALS (23 sets, daily range): BP systolic 102–114; BP diastolic 54–66; PULSE 45–61; RESP 12–24; TEMP 36.3; O2SAT 84–98; BMI 31.1
--- NOTE | 2024-04-09 22:31 | CTR_ITS ---
PROCEDURE INFORMATION: Exam: CT Abdomen And Pelvis Without Contrast Exam date and time: 04/09/2024 11:35 PM Age: 83 years old Clinical indication: Abdominal pain; Prior surgery; Surgery date: 6+ months; Surgery type: Prostatectomy. Ureteral stent. Patient HX: C/O left flank pain with gross hematuria. History of prostate cancer. ; Additional info: Flank pain, hematuria, urinary retention TECHNIQUE: Imaging protocol: Computed tomography of the abdomen and pelvis without contrast. Radiation optimization: All CT scans at this facility use at least one of these dose optimization techniques: automated exposure control; mA and/or kV adjustment per patient size (includes targeted exams where dose is matched to clinical indication); or iterative reconstruction. COMPARISON: CT abdomen pelvis wo con [id number] 03/04/2024 4:36 PM RADIATION DOSE METRICS: Total DLP (mGy-cm): 903.22 FINDINGS: Heart: Mild cardiomegaly and coronary calcification. Liver: Normal. No mass. Gallbladder and biliary ducts: Gallbladder is somewhat distended which may be related to prolonged fasting versus cholestasis. No obvious imaging signs of acute cholecystitis or bile duct dilatation. Clinical correlation should be obtained. Sonographic follow-up may also be considered if clinically indicated. Pancreas: Normal. No ductal dilation. Spleen: Normal. No splenomegaly. Adrenal glands: See Stomach and bowel finding. Kidneys and ureters: Multiple small right renal calcifications measuring up to 4 x 4 mm, mostly arterial calcifications however a few punctate nonobstructing renal calculi may be present. There is a left nephroureteral stent in place with the proximal end in the moderately dilated left renal pelvis and distal end in the bladder lumen. Left lower pole hypodense renal lesion measuring 3 cm, probably simple cysts. There is mild left hydroureter similar to prior exam. There is mild periureteral stranding on the left. No significant perinephric collection is otherwise identified. Stomach and bowel: There is moderate-large fecal retention in the rectum with minimal rectal wall thickening suggesting stercoral proctitis. There is moderate amount of proximal colonic stool with colonic diverticulosis. No acute bowel findings otherwise. Nodular diffuse thickening of the right adrenal gland with the nodular region measuring up to 1.9 cm on the right, unchanged. The nodular density measures -19 Hounsfield units consistent with lipid rich adenoma. Slight nodular thickening of the left adrenal gland is also noted, stable. Appendix: No evidence of appendicitis. Intraperitoneal space: Unremarkable. No free air. No significant fluid collection. Vasculature: Extensive arterial calcifications. No aortic aneurysm. Somewhat flattened appearance of the IVC which may represent hypovolemic state. Lymph nodes: No enlarged lymph nodes. Urinary bladder: Well distended bladder lumen with hyperdense content suggesting blood products. Small bladder lesion would be difficult to exclude in this setting. There is also air in the bladder lumen and Mays balloon. Reproductive: History of prostatectomy. No discrete soft tissue mass or high-density hematoma at the surgical site. Multiple surgical clips are present. Bones/joints: Multilevel vertebral disc degeneration and endplate osteophytes. No acute osseous findings otherwise. Stable mild compression deformity of L4. Chronic spondylolysis at L5. Soft tissues: See Reproductive finding. CT/CT kidney stone [id number] IMPRESSION: 1. Comparison CT 03/04/2024. Left-sided nephroureteral double-J stent remains in same position. Stable [id number] left hydronephrosis/hydroureter and mild regional stranding. 2. Distended urinary bladder with hyperdense contents suggesting blood products. The Mays balloon is in the inferior bladder lumen. Distended bladder may be related to clamping of the Mays versus impaired Mays catheter drainage and clinical correlation is needed. No acute findings at the prostatectomy site. 3. Moderate-large amount of rectal stool retention with minimal regional rectal wall thickening suggesting mild stercoral proctitis. Colonic diverticulosis. No acute bowel findings otherwise. 4. Distended gallbladder. See discussion above. 5. Somewhat flattened appearance of the IVC which may represent hypovolemic state. 6. Coronary calcification and other nonacute findings as above. COMMENTS: Consistent with the [employer]'s Incidental Findings Committee white paper (J Am Elvis Radiol 2018): Any incidental renal lesion less than 1 cm or classified as too small to characterize, or any incidental cystic renal lesion characterized as simple-appearing, is likely benign. No follow-up imaging is recommended for these lesions per consensus recommendations based on imaging criteria.
[2024-04-09 23:06] LABS: Basophils % 0.3 %; Eosinophils # 0.2 10^3/uL (0.0-0.8); Eosinophils % 2.3 %; Hematocrit 37.3 % (37-53); Lymphocytes # 1.4 10^3/uL (0.8-4.8); Lymphocytes % 14.9 %; Mean Corpuscular HGB Conc 31.9 g/dL (30-55); Mean Corpuscular Hemoglobin 33.3 pg (27-33); Mean Corpuscular Volume 104.5 fl (82-101); Mean Platelet Volume 11.4 fL (7.4-10.4); Monocytes # 0.6 10^3/uL (0.2-0.9); Monocytes % 6.8 %; Neutrophils # 6.93 10^3/uL (1.8-7.7); Neutrophils % 75.2 %; Nucleated Red Blood Cells % 0 %; Platelet Count 247 10^3/cmm (157-399); Red Blood Count 3.57 10^6/uL (3.85-5.65); Red Cell Distribution Width 12.9 % (12.1-15.1); White Blood Count 9.22 10^3/uL (3.29-11.43)
[2024-04-09 23:12] LABS: INR 1.08 (0.8-1.2); Partial Thromboplastin Time 25.5 SECONDS (23.9-36.7)
[2024-04-09 23:20] LABS: Alanine Aminotransferase 7 U/L (0-41); Albumin Level 3.5 g/dL (3.5-5.2); Alkaline Phosphatase 70 U/L (40-130); Anion Gap 15.6 (5-19); Aspartate Amino Transferase 12 U/L (0-40); Blood Urea Nitrogen 27 mg/dL (8-23); Calcium 8.7 mg/dL (8.5-10.5); Carbon Dioxide 21 mmol/L (22-29); Chloride 106 mmol/L (98-107); Creatinine Clr Calc Pharmacy 70.1776; Glucose 170 mg/dL (65-115); Magnesium 2.2 mg/dL (1.7-2.3); Osmolality Calculated 295 mOsm/kg (285-295); Phosphorus 2.8 mg/dL (2.5-4.5); Potassium 4.6 mmol/L (3.5-5.1); Sodium 138 mmol/L (136-145); Total Bilirubin 0.3 mg/dL (0.15-1.2); Total Protein 6.5 g/dL (6.6-8.7)
[2024-04-09] MEDS: morphine 4 mg/mL SDV 1 mL IVP (23:24)
[2024-04-09] MEDS: ondansetron 2 mg/ML SDV 2 mL 4 MG IVP (23:24)
[2024-04-09 23:34] LABS: Urine Appearance Turbid (CLEAR)
[2024-04-09 23:35] LABS: Add Urine Culture? Yes; Add Urine Microscopic? YES; Bacteria Urine TRACE /hpf; Bilirubin Urine Neg (Negative); Blood Urine 3+ (Negative); Glucose Urine UA Norm (Normal); Ketones Urine Negative (Negative); Leukocyte Esterase Urine Negative (Negative); Nitrate Urine Positive (Negative); Protein Urine 3+ (Negative); RBC Urine TOO NUMEROUS TO CNT /hpf (0-2); Squamous Epithelial Cell Urine 0-4 /hpf (0-5); Urine Color Red (Yellow); Urobilinogen Urine Norm (Negative); WBC Urine >100 /hpf (0-5); pH Urine 7 (5-7)
[2024-04-10] VITALS (87 sets, daily range): BP systolic 110–144; BP diastolic 56–88; PULSE 44–73; RESP 10–24; O2SAT 87–100
[2024-04-10] MEDS: piperacillin-tazobactam 3.375 GM in sodium chloride 0.9% (plus) 50 ML IV (00:37)
--- NOTE | 2024-04-10 02:31 | W.ED.MALEGU ---
HPI - Male Genitourinary General: Chief complaint: Urogenital-Male Stated complaint: Urinary retention Time Seen by Provider: 04/09/24 22:03 History of Present Illness: 83-year-old male patient who is on aspirin and Plavix. He has had problems with hematuria in the past. He presents with inability to urinate, with hematuria grossly when he is able. He is felt his bladder slowly expand over time, with increasing pain. He denies fever. Related Data Home Medications Medication Instructions Recorded Confirmed amlodipine 5 mg tablet 5 mg PO BEDTIME 08/23/19 04/08/24 aspirin 81 mg tablet,delayed 81 mg PO DAILY 08/23/19 04/08/24 release (Adult Low Dose Aspirin) atorvastatin 10 mg tablet 10 mg PO QMWF 08/23/19 04/08/24 carvedilol 6.25 mg tablet 6.25 mg PO DAILY 08/23/19 04/08/24 docusate sodium 100 mg capsule 100 mg PO BEDTIME 08/23/19 04/08/24 hydrocodone 5 mg-acetaminophen 325 1 tab PO Q8H PRN Pain 08/23/19 04/08/24 mg tablet (Kiln) triamterene 37.5 0.5 cap PO DAILY 08/23/19 04/08/24 mg-hydrochlorothiazide 25 mg capsule multivitamin,id-utus-yfevoarz 1 tab PO DAILY 07/24/20 04/08/24 (Complete Multivitamin tablet) lisinopril 10 mg tablet 10 mg PO BID 07/29/21 04/08/24 Previous Rx's Medication Instructions Recorded enzalutamide 40 mg capsule (Xtandi) 160 mg (4 x 40 mg) PO DAILY #120 05/21/23 caps venlafaxine 75 mg capsule,extended 75 mg PO DAILY #90 caps 12/29/23 release 24 hr Allergies Allergy/AdvReac Type Severity Reaction Status Date / Time No Known Drug Allergies Allergy Mild Unknown Verified 04/08/24 09:25 [facility] ED PFSH: Medical History Superficial thrombophlebitis of right leg Peripheral arterial disease Hydronephrosis Essential hypertension Hyperlipidemia LDL goal <100 Coronary artery disease Retained ureteral stent Extrinsic ureteral obstruction Prostate cancer metastatic to bone Acquired spondylolisthesis Lumbar stenosis with neurogenic claudication Intervertebral disc disorders with radiculopathy, lumbosacral region Surgical History History of eye surgery Removal of pterygium from the left eye History of bilateral cataract extraction 2021 History of cataract surgery (12/2021) Status post surgical removal of malignant neoplasm of skin (12/2021) History of arthroscopic knee surgery History of ureter stent left, 01/20/2019 History of radical prostatectomy (1999) Hx of heart artery stent Family History Mother , at age 83 Cancer breast and kidney Father , at age 60 Stroke Other Hypertension Social History Smoking and tobacco/nicotine status: current every day tobacco/nicotine user Alcohol intake: current Alcohol intake frequency: holidays/special occasions only Substance/Drug Use: never Adopted: No Caregiver/support person: No Lives independently: No Household members: spouse Marital status: service: No Current occupational status: retired Current gender identity: Male Physical Exam Const: COMMON NORMALS: no acute distress GENERAL APPEARANCE: cooperative and ill appearing (Mild); not frail appearing HENMT: COMMON NORMALS: normocephalic, atraumatic and Normal external nose present HEAD & SCALP: normocephalic and atraumatic FACE & SINUS: normal facial exam and face symmetric NOSE: Normal external nose present Eye: COMMON NORMALS: Equal, round and reactive pupils present and EOMs intact bilaterally PUPIL: Yes Equal, round and reactive pupils present Neck/C-Spine: GENERAL: Yes trachea midline Chest: CHEST: Yes Symmetrical chest wall rise Resp: COMMON NORMALS: normal respiratory effort, No retractions, No use of accessory muscles and clear to auscultation bilaterally AUSCULTATION: clear to auscultation bilaterally Cardio: COMMON NORMALS: regular rate and regular rhythm RATE: regular rate RHYTHM: regular rhythm GI: COMMON NORMALS: Soft to palpation PALPATION: Yes Soft to palpation and Yes Tenderness to palpation present (GI) (Suprapubic) Extremity: COMMON NORMALS: no pedal edema Neuro: KEKE COMA SCALE: document GCS findings [place] coma scale eye opening: Spontaneous [place] coma scale verbal response: Orientated [place] coma scale motor response: Obey commands [place] coma scale total score: 15 SENSORY EXAM: Yes extremities (intact) Psych: COMMON NORMALS: speech normal SPEECH: Yes normal speech Skin: COMMON NORMALS: no rashes or lesions noted GENERAL SKIN EXAM: no rashes or lesions noted Course Vital Signs: Vital signs: Vital Signs Temperature 97.4 F L 04/09/24 22:02 Pulse Rate 51 L 04/10/24 06:00 Respiratory Rate 19 H 04/10/24 06:00 Blood Pressure 124/59 04/10/24 06:00 Pulse Oximetry 100 04/10/24 06:00 Oxygen Delivery Me thod Room Air 04/09/24 22:14 MDM - Male Medical Decision Making 83-year-old gentleman with gross hematuria and urinary retention. Three-way catheter is placed, with output of several clots. Had to be flushed. He is on his third bag of CBI now, with clearing of his urine, although there is still blood present. CBC is normal. Hemoglobin is 11.9. Bicarbonate is 21, BUN is 27. CT shows stable placement of the left-sided nephroureteral stent. There is a moderate amount of stool present in the rectum, with rectal wall thickening. Urine is beginning to clear now with CBI. Convoy-colored urine in the bag. He feels improved. After 4 bags of saline CBI, the patient is still passing clots. He does feel improved, but with continued hematuria and clots in the urine, he may require urology. We have a call out, as we do not have urology at this facility. We are awaiting a callback from [facility] where the patient's urologist is to see if we can transfer him. Urology at [facility] has accepted the patient. Recommendations are n.p.o. status, continued bladder irrigation during transfer. He will go when EMS truck is available. Lab Data 04/09/24 22:50 04/09/24 22:50 Radiology Impressions Abdomen/Pelvis CT 04/09/24 22:31 IMPRESSION: 1. Comparison CT 03/04/2024. Left-sided nephroureteral double-J stent remains in same position. Stable [id number] left hydronephrosis/hydroureter and mild regional stranding. 2. Distended urinary bladder with hyperdense contents suggesting blood products. The Mays balloon is in the inferior bladder lumen. Distended bladder may be related to clamping of the Mays versus impaired Mays catheter drainage and clinical correlation is needed. No acute findings at the prostatectomy site. 3. Moderate-large amount of rectal stool retention with minimal regional rectal wall thickening suggesting mild stercoral proctitis. Colonic diverticulosis. No acute bowel findings otherwise. 4. Distended gallbladder. See discussion above. 5. Somewhat flattened appearance of the IVC which may represent hypovolemic state. 6. Coronary calcification and other nonacute findings as above. COMMENTS: Consistent with the [employer]'s Incidental Findings Committee white paper (J Am Elvis Radiol 2018): Any incidental renal lesion less than 1 cm or classified as too small to characterize, or any incidental cystic renal lesion characterized as simple-appearing, is likely benign. No follow-up imaging is recommended for these lesions per consensus recommendations based on imaging criteria. Laboratory Results WBC 9.22 10^3/uL (3.29-11.43) 04/09/24 22:50 RBC 3.57 10^6/uL (3.85-5.65) L 04/09/24 22:50 Hgb 11.90 g/dL (11.27-16.99) 04/09/24 22:50 Hct 37.3 % (37-53) 04/09/24 22:50 MCV 104.5 fl (82-101) H 04/09/24 22:50 MCH 33.3 pg (27-33) H 04/09/24 22:50 MCHC 31.9 g/dL (30-55) 04/09/24 22:50 RDW 12.9 % (12.1-15.1) 04/09/24 22:50 Plt Count 247 10^3/cmm (157-399) 04/09/24 22:50 MPV 11.4 fL (7.4-10.4) H 04/09/24 22:50 Neut % (Auto) 75.2 % 04/09/24 22:50 Lymph % (Auto) 14.9 % 04/09/24 22:50 [place] % (Auto) 6.8 % 04/09/24 22:50 Eos % (Auto) 2.3 % 04/09/24 22:50 Baso % (Auto) 0.3 % 04/09/24 22:50 Neut # (Auto) 6.93 10^3/uL (1.8-7.7) 04/09/24 22:50 Lymph # (Auto) 1.4 10^3/uL (0.8-4.8) 04/09/24 22:50 [place] # (Auto) 0.6 10^3/uL (0.2-0.9) 04/09/24 22:50 Eos # (Auto) 0.2 10^3/uL (0.0-0.8) 04/09/24 22:50 Baso # (Auto) 0.0 10^3/uL (0.0-0.1) 04/09/24 22:50 Nucleated RBC % (auto) 0 % 04/09/24 22:50 Nucleated RBCs # 0.0 /100WBC 04/09/24 22:50 PT 14.30 SECONDS (12.1-14.9) 04/09/24 22:50 INR 1.08 (0.8-1.2) 04/09/24 22:50 APTT 25.5 SECONDS (23.9-36.7) 04/09/24 22:50 Sodium 138 mmol/L (136-145) 04/09/24 22:50 Potassium 4.6 mmol/L (3.5-5.1) 04/09/24 22:50 Chloride 106 mmol/L (98-107) 04/09/24 22:50 Carbon Dioxide 21 mmol/L (22-29) L 04/09/24 22:50 Anion Gap 15.6 (5-19) 04/09/24 22:50 BUN 27 mg/dL (8-23) H 04/09/24 22:50 Creatinine 1.0 mg/dL (0.7-1.2) 04/09/24 22:50 GFR Calculation Not Reportable 04/09/24 22:50 Glucose 170 mg/dL (65-115) H 04/09/24 22:50 Calculated Osmolality 295 mOsm/kg (285-295) 04/09/24 22:50 Calcium 8.7 mg/dL (8.5-10.5) 04/09/24 22:50 Phosphorus 2.8 mg/dL (2.5-4.5) 04/09/24 22:50 Magnesium 2.2 mg/dL (1.7-2.3) 04/09/24 22:50 Total Bilirubin 0.3 mg/dL (0.15-1.2) 04/09/24 22:50 AST 12 U/L (0-40) 04/09/24 22:50 ALT 7 U/L (0-41) 04/09/24 22:50 Alkaline Phosphatase 70 U/L (40-130) 04/09/24 22:50 C-Reactive Protein 3.0 mg/L (0.0-4.9) 04/09/24 22:50 Total Protein 6.5 g/dL (6.6-8.7) L 04/09/24 22:50 Albumin 3.5 g/dL (3.5-5.2) 04/09/24 22:50 Globulin 3.0 g/dL (1.3-4.6) 04/09/24 22:50 Urine Color Red (Yellow) A 04/09/24 23:00 Urine Appearance Turbid (CLEAR) A 04/09/24 23:00 Urine pH 7 (5-7) 04/09/24 23:00 Ur Specific [place] 1.010 (1.005-1.030) 04/09/24 23:00 Urine Protein 3+ (Negative) H 04/09/24 23:00 Urine Glucose (UA) Norm (Normal) 04/09/24 23:00 Urine Ketones Negative (Negative) 04/09/24 23:00 Urine Blood 3+ (Negative) H 04/09/24 23:00 Urine Nitrate Positive (Negative) A 04/09/24 23:00 Urine Bilirubin Neg (Negative) 04/09/24 23:00 Urine Urobilinogen Norm mg/dL (Negative) 04/09/24 23:00 Ur Leukocyte Esterase Negative (Negative) 04/09/24 23:00 Urine RBC Too numerous to cnt /hpf (0-2) H 04/09/24 23:00 Urine WBC >100 /hpf (0-5) H 04/09/24 23:00 Ur Squamous Epith Cells 0-4 /hpf (0-5) H 04/09/24 23:00 Amorphous Sediment Not Reportable 04/09/24 23:00 Urine Bacteria Trace /hpf (NONE) 04/09/24 23:00 All radiology interpretation(s) finalized by discharge Discharge Plan Discharge Patient Disposition: Xfer Short-Term Hosp Clinical Impression: Acute retention of urine, Gross hematuria Condition: Stable Prescriptions: No Action Complete Multivitamin Tablet 1 tab PO DAILY hydrocodone-acetaminophen [Kiln] 5-325 mg tablet 1 tab PO Q8H PRN (Reason: Pain) triamterene-hydrochlorothiazid 37.5-25 mg capsule 0.5 cap PO DAILY amlodipine 5 mg tablet 5 mg PO BEDTIME carvedilol 6.25 mg tablet 6.25 mg PO DAILY docusate sodium 100 mg capsule 100 mg PO BEDTIME aspirin [Adult Low Dose Aspirin] 81 mg tablet,delayed release (DR/EC) 81 mg PO DAILY Hold Instructions: Resume on 12/17/22. atorvastatin 10 mg tablet 10 mg PO QMWF Xtandi 40 mg capsule 160 mg PO DAILY MDD 160 mg Qty: 120 12RF venlafaxine 75 mg capsule,extended release 24hr 75 mg PO DAILY Qty: 90 3RF lisinopril 10 mg tablet 10 mg PO BID Referrals: Tony Guerra MD [Primary Care Provider] - Coding Level of Care Code ED Supervisor [employer] for Phillip Pina
--- NOTE | 2024-04-10 07:14 | PC.NURSE ---
Patient has received 900 ml of the 5th bag of saline in to his bladder and he has had 1600 ml out through his catheter at this time.
--- NOTE | 2024-04-10 07:36 | PC.NURSE ---
Patient is still on his 5th bag of CBI fluids, he has had 1500 ml in and 900 ml out.
--- NOTE | 2024-04-10 08:26 | PC.NURSE ---
Bag 6 of CBI fluid just started
--- NOTE | 2024-04-10 08:26 | PC.NURSE ---
04/10/24 @ 0805 Patient still on his 5th bag of CBI fluid, he had 1000 ml in and 1200 ml out.
--- NOTE | 2024-04-10 09:10 | PC.NURSE ---
Patient is still on 6th bag and has 200 ml in and another 1100 ml out. Patient is currently being loaded into the ambulance and being transported to [facility].
== END 2024-04-10 09:10 | disposition short-term general hospital (02) ==
PROVIDERS: Emergency Provider Emergency Medicine; PCP Family Medicine
DX: R33.9 Retention of urine, unspecified (principal); R31.0 Gross hematuria; Z79.82 Long term (current) use of aspirin; Z72.0 Tobacco use; I10 Essential (primary) hypertension; E78.5 Hyperlipidemia, unspecified; I25.10 Atherosclerotic heart disease of native coronary artery without angina pectoris; Z85.46 Personal history of malignant neoplasm of prostate; Z85.830 Personal history of malignant neoplasm of bone
CPT/HCPCS: 36415; 51702; 74176; 80053; 81001; 83735; 84100; 85025; 85610; 85730; 86140; 87086; 96365; 96375; 99285; J2270; J2405; J2543

== ENCOUNTER 2024-07-12 11:33 | Oncology outpatient (recurring) (ONCR) | payer MEDICARE, OTHER, SELFPAY ==
[2024-07-12 12:04] LABS: Basophils % 0.4 %; Eosinophils # 0.2 10^3/uL (0.0-0.8); Eosinophils % 3.3 %; Hematocrit 36.2 % (37-53); Lymphocytes # 1.8 10^3/uL (0.8-4.8); Lymphocytes % 25.9 %; Mean Corpuscular HGB Conc 30.4 g/dL (30-55); Mean Corpuscular Hemoglobin 27.6 pg (27-33); Mean Platelet Volume 10.4 fL (7.4-10.4); Monocytes # 0.6 10^3/uL (0.2-0.9); Monocytes % 8.5 %; Neutrophils # 4.26 10^3/uL (1.8-7.7); Neutrophils % 61.5 %; Nucleated Red Blood Cells % 0 %; Platelet Count 270 10^3/cmm (157-399); Red Blood Count 3.98 10^6/uL (3.85-5.65); Red Cell Distribution Width 15.9 % (12.1-15.1); White Blood Count 6.94 10^3/uL (3.29-11.43)
[2024-07-12 12:35] LABS: Alanine Aminotransferase 9 U/L (0-41); Albumin Level 3.7 g/dL (3.5-5.2); Alkaline Phosphatase 94 U/L (40-130); Anion Gap 15.9 (5-19); Aspartate Amino Transferase 18 U/L (0-40); Blood Urea Nitrogen 24 mg/dL (8-23); Carbon Dioxide 25 mmol/L (22-29); Chloride 103 mmol/L (98-107); Creatinine Clr Calc Pharmacy 69.7314; Glucose 112 mg/dL (65-115); Osmolality Calculated 293 mOsm/kg (285-295); Potassium 4.9 mmol/L (3.5-5.1); Sodium 139 mmol/L (136-145); Testosterone Total 6.3 ng/dL (193-740); Total Bilirubin 0.3 mg/dL (0.15-1.2); Total Protein 6.7 g/dL (6.6-8.7)
[2024-07-12] MEDS: leuprolide 45 mg Kit IM (14:01)
== END 2024-07-12 23:59 | disposition home or self-care (01) ==
PROVIDERS: Nurse Practitioner Family; PCP Family Medicine; Visit Provider Internal Medicine Medical Oncology
DX: C61 Malignant neoplasm of prostate (principal); C79.51 Secondary malignant neoplasm of bone; N13.5 Crossing vessel and stricture of ureter without hydronephrosis; Z96.0 Presence of urogenital implants; F17.210 Nicotine dependence, cigarettes, uncomplicated; Z79.899 Other long term (current) drug therapy; Z51.11 Encounter for antineoplastic chemotherapy
CPT/HCPCS: 36415; 80053; 84153; 84403; 85025; 96402; 99214; J9217

== ENCOUNTER → 2025-01-02 12:57 | Outpatient (BNVA) | payer MEDICARE, OTHER, SELFPAY | PROVIDERS: PCP Family Medicine; Visit Provider Internal Medicine | DX: I10 Essential (primary) hypertension (principal); I25.118 Atherosclerotic heart disease of native coronary artery with other forms of angina pectoris | CPT/HCPCS: 99213 ==

== ENCOUNTER 2025-02-21 11:06 | Outpatient (CLI) | payer MEDICARE, OTHER, SELFPAY ==
[2025-02-21 11:38] LABS: Glucose Urine UA Negative (Normal); Nitrate Urine Positive (Negative); Specific Gravity, Urine 1.017 (1.005-1.030)
[2025-02-21 11:55] LABS: Add Urine Microscopic? YES
== END 2025-02-21 11:07 | disposition home or self-care (01) ==
LOC: LAB 11:08
PROVIDERS: PCP Family Medicine; Visit Provider Urology
DX: N39.0 Urinary tract infection, site not specified (principal)
CPT/HCPCS: 81001; 87086